=== PATIENT | male | born 1940 | race Caucasian/White ===

== ENCOUNTER → 2024-06-18 15:22 | Outpatient (CLI) | payer MEDICARE, OTHER, SELFPAY ==
[2024-06-18 15:59] LABS: Add Manual Diff / Slide Review NO; Basophils Absolute Auto 0 /uL (0-100); Basophils Percent Auto 0.3 % (0-2); Eosinophils Absolute Auto 300 /uL (0-450); Hematocrit 36.6 % (41-53); Hemoglobin 12.3 g/dL (13.5-17.5); Lymphocytes Absolute Auto 1000 /uL (1100-4500); Mean Corpuscular HGB Conc 33.7 % (30-36); Mean Corpuscular Hemoglobin 28.4 PG (26-34); Mean Corpuscular Volume 84.2 fL (80-100); Monocytes Absolute Auto 900 /uL (0-900); Neutrophils Absolute Auto 5000 /uL (1500-7000); Neutrophils Percent Auto 69.7 % (50-75); Platelet Count 234 X10^3/uL (150-400); Red Blood Cell Count 4.35 X10^6/uL (4.5-5.9); Red Cell Distribution Width 16.5 % (11.6-14.8); White Blood Cell Count 7.2 X10^3/uL (4.5-11.0)
--- NOTE | 2024-06-18 16:02 | EKG_ITS ---
[address] [address] Test Date: 2024-06-18 Pat Name: Lawson Ruelas Department: [facility] Room: Gender: Male Pyridine Operator: TYRONE : 1940 Requested By: Order Number: [id number] Reading MD: Fabrice Rodriguez MD Measurements Intervals [place] Rate: 61 P: 9 RI: 164 QRS: 3 QRSD: 100 T: -7 QT: 476 QTc: 479 Interpretive Statements Normal sinus rhythm Inferior infarct , age undetermined Electronically Signed On 06-19-2024 7:37:26 PDT by Fabrice Rodriguez MD
[2024-06-18 16:40] LABS: Blood Urea Nitrogen 23 mg/dL (9-20); Carbon Dioxide 26 mmol/L (22-32); Chloride 100 mmol/L (98-107); Estimated Glomerular Filt Rate > 60 mL/min (>60); Glucose 119 mg/dL (80-110); HEMOLYSIS < 15 (0-50); Potassium 4.2 mmol/L (3.4-5.1); Sodium 133 mmol/L (137-145)
[2024-06-18 17:42] LABS: Hemoglobin A1C% w Est Avg Glu 5.7 % (4.0-6.0)
== END ==
LOC: RESP 15:27
PROVIDERS: PCP Internal Medicine; Referring Provider Orthopaedic Surgery; Visit Provider Orthopaedic Surgery
DX: Z01.818 Encounter for other preprocedural examination (principal); R73.9 Hyperglycemia, unspecified; Z01.812 Encounter for preprocedural laboratory examination; N39.0 Urinary tract infection, site not specified
CPT/HCPCS: 36415; 80048; 83036; 85025; 93005; 93010

== ENCOUNTER 2024-07-11 15:24 | Inpatient (IN) | payer MEDICARE, OTHER, SELFPAY ==
[2024-07-11] VITALS (11 sets, daily range): BP systolic 110–179; BP diastolic 65–84; PULSE 58–74; RESP 12–24; TEMP 36–36.4; O2SAT 95–99; BMI 21.5
--- NOTE | 2024-07-11 | PATH_ITS ---
[facility] Accession Number: [id number] No. of containers..01 Tissue . 01 Material submitted: . small bowel - SMALL BOWEL . 01 Diagnosis: SMALL BOWEL, SEGMENTAL RESECTION: Small bowel parenchyma with transmural acute and hemorrhagic inflammation and necrosis. Resection margins are viable. Two benign lymph nodes identified. MRV 07/17/2024 1407 Local . 01 Electronically signed: . Jeanne Boyd MD, Pathologist NPI- [id number] . 01 Gross description: . Received in formalin with two patient identifiers and small bowel, is an unoriented, tortuous segment of hemorrhagic bowel (76.7 cm in length by 2.4 cm in average diameter) with a moderate amount of mesentery extending out to 5.2 cm. The serosa is diffusely hemorrhagic and roughened with no perforation or puckering identified. While the bowel is tortuous, no distinct looping is identified. One staple line is inked blue while the opposite staple line is inked black. The lumen is filled with mucohemorrhagic material with a segment of dark red erythematous mucosa measuring 17.9 cm in length with diffusely attenuated folds, and the [place] in this area average 0.1 cm thick. The remaining mucosa is elaine-brown and velvety with normal appearing folds. No lesions are identified, and the remaining [place] average 0.2 cm thick. The erythematous area is 3.2 cm from the nearest blue-inked margin. Palpation reveals two elaine lymph node candidates, 0.2 to 0.4 cm in greatest dimension. Meat Loiner sections are submitted as follows: . A1: Rep margins en face. A2: Erythematous area. A3-A4: Additional full thickness bowel wall. A5: Two intact lymph node candidates. ([id number]) /MRV 07/16/2024 0347 Local . 01 Pathologist provided ICD-10: K56.2 . 01 CPT . 399721 Specimen Comment: A courtesy copy of this report has been sent to [phone] Performed at: [address] [id number] MD Stuart Gillespie MD Phone: [phone]
--- NOTE | 2024-07-11 15:50 | EKG_ITS ---
[facility] [address] [place] [id number] Test Date: 2024-07-11 Pat Name: Lawson Ruelas Department: [facility] Room: Gender: Male Dumper Bulk System: AGATHA : 1940 Requested By: Order Number: [id number] Reading MD: Fabrice Rodriguez MD Measurements Intervals [place] Rate: 60 P: 17 WI: 158 QRS: -7 QRSD: 96 T: -17 QT: 520 QTc: 520 Interpretive Statements Sinus rhythm with occasional premature ventricular complexes Inferior infarct , age undetermined Electronically Signed On 07-11-2024 17:08:38 PDT by Fabrice Rodriguez MD
[2024-07-11] MEDS: SODIUM CHLORIDE 0.9% 1,000 ML 1000 ML IV (15:54)
[2024-07-11] MEDS: ONDANSETRON 4 MG/2 ML INJ IV (15:54)
[2024-07-11 15:57] LABS: Add Manual Diff / Slide Review NO; Basophils Absolute Auto 100 /uL (0-100); Basophils Percent Auto 0.7 % (0-2); Eosinophils Absolute Auto 100 /uL (0-450); Eosinophils Percent Auto 1.6 % (2-4); Hematocrit 39.1 % (41-53); Lymphocytes Absolute Auto 1400 /uL (1100-4500); Lymphocytes Percent Auto 17.6 % (25-40); Mean Corpuscular HGB Conc 33.3 % (30-36); Monocytes Absolute Auto 1000 /uL (0-900); Monocytes Percent Auto 12.7 % (3-14); Neutrophils Absolute Auto 5300 /uL (1500-7000); Neutrophils Percent Auto 67.4 % (50-75); Platelet Count 264 X10^3/uL (150-400); Red Blood Cell Count 4.65 X10^6/uL (4.5-5.9); Red Cell Distribution Width 16.5 % (11.6-14.8); White Blood Cell Count 7.9 X10^3/uL (4.5-11.0)
[2024-07-11 16:10] LABS: Alanine Aminotransferase 30 IU/L (<50); Albumin 4.5 g/dL (3.5-5.0); Albumin Globulin Ratio 1.6 (1.0-2.8); Alkaline Phosphatase 160 U/L (38-126); Aspartate Aminotransferase 43 IU/L (17-59); BUN Creatinine Ratio 24.2 (6-22); Bilirubin Total 0.4 mg/dL (0.2-1.3); Blood Urea Nitrogen 23 mg/dL (9-20); Calcium 9.2 mg/dL (8.4-10.2); Carbon Dioxide 17 mmol/L (22-32); Chloride 103 mmol/L (98-107); Estimated Glomerular Filt Rate > 60 mL/min (>60); Globulin 2.9 g/dL (1.7-4.1); Glucose 214 mg/dL (80-110); HEMOLYSIS < 15 (0-50); Lipase 99 U/L (23-300); Potassium 3.5 mmol/L (3.4-5.1); Sodium 134 mmol/L (137-145); Total Protein 7.4 g/dL (6.3-8.2)
--- NOTE | 2024-07-11 18:20 | ED.GENADULT ---
HPI - General Adult General Chief complaint: Abdominal Pain Stated complaint: abd px Time Seen by Provider: 07/11/24 18:00 Source: patient and family Mode of arrival: Ambulatory Limitations: no limitations History of Present Illness HPI narrative: Patient is an 84-year-old male who arrives in the emergency department for abdominal pain after an episode of vomiting. Patient was just discharged from an outside facility this morning after being admitted for weakness. No specific cause of the weakness was found. He would relatively normal labs. Echocardiogram that was unremarkable. Was subsequently discharged home. He was on his way to another doctor's appointment this morning to discuss potentially having a knee replacement. They stopped to get lunch. Shortly after eating lunch she had an episode of vomiting. Since that time he was had continued nausea. Continued abdominal pain that has been worsening. The nausea did not make any of his discomfort better. No fevers. No chest pain. No shortness of breath. Symptoms. Has not had a bowel movement since the onset of the symptoms. Related Data Allergies Allergy/AdvReac Type Severity Reaction Status Date / Time Sulfa (Sulfonamide Allergy Verified 07/11/24 15:49 Antibiotics) Review of Systems Review of Systems ROS Unobtainable: All systems reviewed & are unremarkable except as noted in HPI and below Exam Initial Vital Signs Initial Vital Signs: Vital Signs Temperature 96.8 F L 07/11/24 15:35 Pulse Rate 74 07/11/24 15:35 Respiratory Rate 16 07/11/24 15:35 Blood Pressure 130/81 07/11/24 15:35 Pulse Oximetry 98 07/11/24 15:35 Oxygen Delivery Method Room Air 07/11/24 15:35 Const General: cooperative, well developed and No ill appearing [facility] Head: normal to inspection and normocephalic Resp Effort & Inspection: normal respiratory effort Auscultation: clear to auscultation bilaterally Cardio Rate: regular rate Rhythm: regular rhythm GI Inspection: normal to inspection and non-distended Palpation: soft, No firm, No guarding and tender Skin General: no rashes or lesions noted Neuro General: patient alert, patient awake, patient oriented x3 and moves all extremities Speech: speech normal Gait: normal gait Extrem General: normal to inspection and capillary refill normal Course Orders Ordered: ED Orders 07/11/24 15:50 Complete Blood Count AUTO DIFF Stat Comprehensive Metabolic Panel Stat Lactate (Lactic Acid) Stat Lipase Stat EKG-12 Lead Stat 07/11/24 18:20 CT abdomen pelvis w con Stat 07/11/24 20:05 Consult to General Surgery Stat 07/11/24 20:20 Lactate (Lactic Acid) Stat Sodium Chloride (Normal Saline 0.9%) 1,000 mls @ 100 mls/hr IV CONT MARY LOU Ondansetron HCl (Ondansetron 4 Mg/2 Ml Inj) 4 mg IV NOW PRN PRN Reason: Nausea And Vomiting Last Admin: 07/11/24 15:54 Dose: 4 mg Documented By: NEERAJ Discontinued Medications Sodium Chloride (Normal Saline 0.9%) 1,000 mls @ 1,000 mls/hr IV BOLUS ONE Stop: 07/11/24 16:49 Last Infusion: 07/11/24 16:48 Dose: Infused Documented By: Admin: 07/11/24 15:54 Dose: 1,000 mls/hr Documented By: NEERAJ Morphine Sulfate (Morphine 4 Mg/Ml Inj) 4 mg IV NOW ONE Stop: 07/11/24 18:21 Last Admin: 07/11/24 18:41 Dose: 4 mg Documented By: ISAAC Morphine Sulfate (Morphine 4 Mg/Ml Inj) 4 mg IV NOW ONE Stop: 07/11/24 20:06 Last Admin: 07/11/24 20:09 Dose: 4 mg Documented By: MILO Vital Signs Vital signs: Vital Signs - 8 hr 07/11/24 15:35 07/11/24 16:50 07/11/24 18:43 Temperature 96.8 F L Pulse Rate 74 68 60 Respiratory Rate 16 16 16 Blood Pressure 130/81 179/84 H 166/74 H Pulse Oximetry 98 95 99 Oxygen Delivery Method Room Air Room Air Room Air Medical Decision Making Medical Records Medical records reviewed: Yes I reviewed the patient's medical records. Lab Data Lab results reviewed: Yes I reviewed the patient's lab results. 07/11/24 15:50 07/11/24 15:50 Labs: Lab Results 07/11/24 07/11/24 Range/Units 15:50 20:20 WBC 7.9 (4.5-11.0) X10^3/uL RBC 4.65 (4.5-5.9) X10^6/uL Hgb 13.0 L (13.5-17.5) g/dL Hct 39.1 L (41-53) % MCV 84.0 (80-100) fL MCH 28.0 (26-34) PG MCHC 33.3 (30-36) % RDW 16.5 H (11.6-14.8) % Plt Count 264 (150-400) X10^3/uL Neut % (Auto) 67.4 (50-75) % Lymph % (Auto) 17.6 L (25-40) % [place] % (Auto) 12.7 (3-14) % Eos % (Auto) 1.6 L (2-4) % Baso % (Auto) 0.7 (0-2) % Neut # (Auto) 5300 (9395-3835) /uL Lymph # (Auto) 1400 (9272-7036) /uL [place] # (Auto) 1000 H (0-900) /uL Eos # (Auto) 100 (0-450) /uL Baso # (Auto) 100 (0-100) /uL Sodium 134 L (137-145) mmol/L Potassium 3.5 (3.4-5.1) mmol/L Chloride 103 (98-107) mmol/L Carbon Dioxide 17 L (22-32) mmol/L BUN 23 H (9-20) mg/dL Creatinine 0.95 (0.66-1.25) mg/dL Estimated GFR > 60 (>60) mL/min BUN/Creatinine Ratio 24.2 H (6-22) Glucose 214 H (80-110) mg/dL Lactate 3.7 H 1.8 (0.7-2.1) mmol/L Calcium 9.2 (8.4-10.2) mg/dL Total Bilirubin 0.4 (0.2-1.3) mg/dL AST 43 (17-59) IU/L ALT 30 (<50) IU/L Alkaline Phosphatase 160 H (38-126) U/L Total Protein 7.4 (6.3-8.2) g/dL Albumin 4.5 (3.5-5.0) g/dL Globulin 2.9 (1.7-4.1) g/dL Albumin/Globulin Ratio 1.6 (1.0-2.8) Lipase 99 (23-300) U/L Urine Dip Bedside Urine Glucose Negative Bedside Urine Bilirubin - Negative Bedside Urine Ketone - Negative Urine Specific [place] 1.010 Bedside Urine Occult Blood - Negative Bedside Urine pH 7.0 Bedside Urine Protein - Negative Bedside Urine Urobilinogen - Negative Bedside Urine Nitrite - Negative Bedside Urine Leukocytes - Negative Esterase Point of care testing: Urine Dip Bedside Urine Glucose Negative Bedside Urine Bilirubin - Negative Bedside Urine Ketone - Negative Urine Specific [place] 1.010 Bedside Urine Occult Blood - Negative Bedside Urine pH 7.0 Bedside Urine Protein - Negative Bedside Urine Urobilinogen - Negative Bedside Urine Nitrite - Negative Bedside Urine Leukocytes - Negative Esterase Imaging Data CT scan - abdomen/pelvis: Radiologist's Impression: PROCEDURE: CT ABDOMEN PELVIS W CON INDICATIONS: Generalized abdominal pain TECHNIQUE: After the administration of intravenous contrast, axial sections acquired from the lung bases to the pubic symphysis. Coronal and sagittal reformats were performed. For radiation dose reduction, the following was used: automated exposure control, adjustment of mA and/or kV according to patient size. COMPARISON: None. FINDINGS: Image quality: Diagnostic Lower chest: Scattered scarring and atelectasis especially in the left lower lung. Aortic valve replacement. Coronary calcifications. Liver: Unremarkable Gallbladder and biliary system: Unremarkable, nondilated Pancreas: No ductal dilation Spleen: Nonenlarged Adrenals: No discrete nodules Kidneys: No solid mass. Renal cysts are present. Subcentimeter lesions are too small to characterize, usually also cysts Vessels and lymph nodes: The main portal vein is patent. Abdominal aortic aneurysm status post stent graft placement. Internal densities representing endoleaks are present. No pathologic lymph nodes by size criteria Bowel and peritoneum: Mildly dilated loops of distal bowel are seen, there are moderate findings of mesenteric congestion . Possible adhesive band is seen in the central lower abdomen (3/25), implied by the sudden transition of bowel diameter, and focally edematous mesentery. Altered enhancement of the adjacent bowel loops is noted. Colonic diverticula are seen. Trace pelvic ascites. Body wall: Tiny fat containing umbilical hernia Pelvis: Possible small hydroceles. Urinary bladder is distended. BPH device and heterogeneous prostate enhancement, not well assessed on this study Bones: There are degenerative changes. Age-indeterminate height loss of multiple vertebral bodies, with vertebral plana at T12. IMPRESSION: Complex small-bowel obstruction in the lower abdomen, with transition point also affecting the mesenteric venous drainage. Although the bowel is only mildly distended, there is significant edema and altered bowel wall enhancement, possibly representing congestive ischemia. Surgical consultation is recommended. Aortoiliac stent graft and endoleaks within the excluded aneurysm sac, recommend dedicated vascular follow-up and vascular CT imaging. Age-indeterminate height loss of multiple vertebral bodies most notably T12. Other findings above. MDM Narrative Medical decision making narrative: Patient has a relatively benign abdominal exam but given his persistent discomfort even after vomiting CT scan was ordered. No leukocytosis. Initially had an elevated lactate but this improved with fluids. Afebrile. CT scan shows small bowel obstruction with concerns for ischemia. Discussed the case with Dr. Villeda on-call for General surgery who evaluated the patient in the emergency department plan will be is to admit to surgery for excellent. I also discussed the case with Dr. Cruz hospitalist on-call who will be involved in the care after surgery. Discharge Plan Departure Patient Disposition: Admitted As Inpatient Clinical Impression: Small bowel obstruction Admit Date/Time: 07/11/24 20:54 Admit Provider: Jeffrey Cruz
[2024-07-11] MEDS: MORPHINE 4 MG/ML INJ IV ×2 (18:41→20:09)
[2024-07-11 20:16] LABS: Lactate (Lactic Acid) 3.7 mmol/L (0.7-2.1)
[2024-07-11 20:44] LABS: Lactate (Lactic Acid) 1.8 mmol/L (0.7-2.1)
--- NOTE | 2024-07-11 20:45 | PC.NURSE ---
Dr Villeda in to talk with pt and pt's
--- NOTE | 2024-07-11 20:54 | P.CONS_ITS ---
History of Present Illness Consult details Date Patient Seen: 07/11/24 Time Patient Seen: 20:54 Chief complaint: abd px Narrative: Lawson Ruelas is an 84-year-old man PMH CVA, aortic stenosis status post TAVR, AAA status post EVAR and paroxysmal atrial fibrillation not on anticoagulation who presents to the [facility] Emergency Department with the acute onset abdominal pain. Abdominal pain primarily of the right lower quadrant began abruptly today around noon. He has a associated nausea and emesis. At admission hemodynamically stable WBC 8, initial lactic acid 3.7 now 1.[address] abdomen pelvis demonstrates a small-bowel obstruction with a transition point in the right lower quadrant with mesenteric congestion. He was discharged from [facility] yesterday where he was there for few days for complaint of generalized weakness. His weakness improved no real underlying cause was identified. While there he did undergo a echocardiogram which demonstrates a normally functioning prosthetic aortic valve peak velocity less than 3 m/sec. The ejection fraction was 55-60 with grade 1 diastolic dysfunction. Meds Home Medications and Allergies Allergies Allergy/AdvReac Type Severity Reaction Status Date / Time Sulfa (Sulfonamide Allergy Verified 07/11/24 15:49 Antibiotics) Exam Vital Signs (past 8 hours): - 07/11/24 15:35 07/11/24 16:50 07/11/24 18:43 Temperature 96.8 F L Pulse Rate 74 68 60 Respiratory Rate 16 16 16 Blood Pressure 130/81 179/84 H 166/74 H Pulse Oximetry 98 95 99 Oxygen Delivery Method Room Air Room Air Room Air Oxygen Delivery Method Room Air Narrative Exam Narrative: GENERAL: A well nourished, well developed elderly male HEENT: Normocephalic, atraumatic. No scleral icterus CHEST: Rising symmetrically. No audible wheezes CARDIOVASCULAR: Warm and well perfused. Regular rate ABDOMEN: Distention with focal tenderness in the right lower quadrant EXTREMITIES: Normal tone and without edema. NEUROLOGIC: Moving all extremities spontaneously. No gross motor deficits. Objective Labs 07/11/24 15:50 07/11/24 15:50 Labs: Laboratory Results - last 24 hr 07/11/24 07/11/24 15:50 20:20 WBC 7.9 RBC 4.65 Hgb 13.0 L Hct 39.1 L MCV 84.0 MCH 28.0 MCHC 33.3 RDW 16.5 H Plt Count 264 Neut % (Auto) 67.4 Lymph % (Auto) 17.6 L [place] % (Auto) 12.7 Eos % (Auto) 1.6 L Baso % (Auto) 0.7 Neut # (Auto) 5300 Lymph # (Auto) 1400 [place] # (Auto) 1000 H Eos # (Auto) 100 Baso # (Auto) 100 Sodium 134 L Potassium 3.5 Chloride 103 Carbon Dioxide 17 L BUN 23 H Creatinine 0.95 Estimated GFR > 60 BUN/Creatinine Ratio 24.2 H Glucose 214 H Lactate 3.7 H 1.8 Calcium 9.2 Total Bilirubin 0.4 AST 43 ALT 30 Alkaline Phosphatase 160 H Total Protein 7.4 Albumin 4.5 Globulin 2.9 Albumin/Globulin Ratio 1.6 Lipase 99 [facility] Medical History (Updated 07/11/24 @ 21:20 by Zuhair Villeda MD) Atrial fibrillation Stroke Aortic stenosis Abdominal aortic aneurysm Surgical History (Updated 07/11/24 @ 21:07 by Zuhair Villeda MD) History of appendectomy H/O aortic aneurysm repair S/P TAVR (transcatheter aortic valve replacement) Assessment & Plan Assessment and plan (1) Small bowel obstruction: Problem details: 84-year-old man PMH aortic stenosis status post TAVR, AAA status post repair, atrial fibrillation with an acute small bowel obstruction. CT with a clear transition point in the right lower quadrant and radiology notes mesenteric congestion. While not peritoneal at this point I think early intervention is indicated. If the mesenteric congestion/venous outflow does not improve he will progress to sujata bowel ischemia and perforation which at his advanced age and with his comorbidities would be quite morbid. Overview of the operation its indications alternative and risks including hemorrhage, infection, anastomotic leak, stroke, myocardial infarction and were reviewed. Their questions have been answered. He provides his consent to proceed. Status: Acute Time-Based Coding :: [TOTAL MINUTES] spent with patient and on the chart (including review of chart, obtaining history, exam, reviewing outside data, placing orders, documenting exam and treatment plan, and counseling patient) on [DATE].
--- NOTE | 2024-07-11 21:00 | PC.NURSE ---
discussed with and pt about her staying tonight in pt's room if they wanted so she wouln't have to drive pt continues to rest comfortably
[2024-07-11] MEDS: LACTATED RINGERS 1,000 ML 42 ML IV ×2 (21:33→23:39)
[2024-07-11 21:44] LABS: Reflexed Lactate in 2 Hours Y
[2024-07-11] MEDS: PIPERACILLIN/TAZO 3.375 GM in SODIUM CHLORIDE 0.9% 100 ML IV (22:00)
[2024-07-11] MEDS: ACETAMINOPHEN IV 1,000 MG/100 ML VIAL 400 MG IV (22:10)
--- NOTE | 2024-07-11 22:12 | SUR.OPER ---
Supine on padded OR bed, head on pillow, arms secured on padded arm boards at <90 degrees abduction, legs uncrossed, safety belt at thigh, tape over blanket over lower legs.
[2024-07-11] MEDS: BUPIVACAINE LIPOSOME 266 MG/20 ML VIAL INJ (22:24)
[2024-07-11] MEDS: BUPIVACAINE 0.25% (PF) VIAL 10 ML INJ (22:24)
--- NOTE | 2024-07-11 23:16 | PM.OP.1 ---
Operative Date/Time/Diagnoses Date of procedure: 07/11/24 Time of procedure: 23:16 Pre-op diagnosis: Small-bowel obstruction Post-op diagnosis: other (Small-bowel volvulus) Procedure & Clinicians Procedure: Exploratory laparotomy Enterectomy Same procedure as scheduled: Yes Indications: 84-year-old man with a history of prior abdominal surgery who presented with symptoms and radiographic findings consistent with a small-bowel obstruction. Specifically the CT was concerning for mesenteric congestion and a clear transition point. He was taken to the operating room for an exploratory laparotomy following a discussion of the risks benefits and alternatives to the operation. Surgeon: Zuhair Villeda Anesthesia Type: General Operative Notes Findings: Approximately 40 cm of ischemic and partially necrotic volvulized mid small bowel Specimen(s): other (Small-bowel) Estimated Blood Loss (mL): 20 Procedure in detail: Patient was brought to the operating room placed supine on the table. Bilateral lower extremity compression devices were applied. He received 3.375 g of Zosyn. A Edwards catheter was sterilely placed. He was then prepped and draped in sterile fashion. Time-out performed. A infraumbilical midline laparotomy was made. The abdomen was entered and there was a loop of small bowel within the right pelvis which was eviscerated. The small bowel appears to have volvulized around a vascular pedicle. There was approximately 40 cm within the mid small bowel which was ischemic and with early signs of necrosis. The condition of the bowel did not improve with detorsion of the volvulus. The remainder of the small bowel from the terminal ileum to the ligament of Treitz was grossly normal. We performed a small-bowel resection of the ischemic portion. Window within the mesentery was made the bowel was divided using the CYRUS stapler 75 mm blue load. The mesentery was then divided using the LigaSure. Specimen was passed off the field labeled small bowel. We formed a [id number] functional end to end anastomosis between the 2 limbs of small bowel. An enterotomy was made in each limb and then a 3rd staple load was used to create a common channel. The anastomosis was inspected and was hemostatic and widely patent. The common opening was then closed with a running 3-0 PDS suture. The suture line was imbricated using interrupted silk suture. A crotch stitch was placed. We closed the mesenteric defect with Vicryl. The anastomosis was examined there was no evidence of leak and it was well perfused. The bowel was returned to the abdomen. The abdomen was copiously irrigated with several L of saline until it returned clear. Hemostasis was verified. We then closed the fascia using PDS suture followed by lucía for the skin. Total of 30 mL of 0.25% bupivacaine and 20 mL of Exparel were used for local anesthetic. The sponge and instrument count was correct x2. Patient emerged from anesthesia and was transferred to recovery in stable condition. Complications: none Post-operative Condition: stable Disposition: ICU
[2024-07-11] MEDS: LACTATED RINGERS 1,000 ML 100 ML IV (23:45)
[2024-07-12] VITALS (16 sets, daily range): BP systolic 123–150; BP diastolic 65–71; PULSE 56–77; RESP 12–37; TEMP 36.3–36.6; O2SAT 92–98
--- NOTE | 2024-07-12 01:28 | P.TELICUCN_ITS ---
History of Present Illness Consult details IF CAMERA ACTIVATED, patient seen via real-time interactive audiovisual communication: Camera activated Date Patient Seen: 07/12/24 Chief complaint: abd px Consent obtained for tele-unemployment benefits claims taker care: Yes Patient Location: ICU Provider location (State): [place] Other participants/roles: RN Narrative: 84 yo M w/ CVA, aortic stenosis status post TAVR, AAA status post EVAR and paroxysmal atrial fibrillation not on anticoagulation presenting woth abd pain and found to have an SBO - brought to OR this eveningnow s/p ex lap with necrotic bowel excised and small bowel anastomosis trasnferred to ICU given intra op and post op HD instability which does seem to be improving. AM labs are pending but his bicabr was quite low , likely from necrotic bowel, prior to surgery. he is currently awake talkign with family and adequate BP and VS PFSH Medical History (Updated 07/11/24 @ 21:20 by Zuhair Villeda MD) Atrial fibrillation Stroke Aortic stenosis Abdominal aortic aneurysm Surgical History (Updated 07/11/24 @ 21:07 by Zuhair Villeda MD) History of appendectomy H/O aortic aneurysm repair S/P TAVR (transcatheter aortic valve replacement) Social History household members: spouse Smoking Status: Never smoker alcohol intake: former Current Medications Current Medications Medications: Visit Medications (administered) Generic Name Dose Route Start Last Admin Trade Name Freq PRN Reason Stop Dose Admin Lactated Ringer's 1,000 mls @ 100 mls/hr 07/11/24 21:00 07/11/24 23:45 Lactated Ringers IV 100 mls/hr CONT MARY LOU Administration Ondansetron HCl 4 mg 07/11/24 15:49 07/11/24 15:54 Ondansetron 4 Mg/2 Ml Inj IV 4 mg NOW PRN Administration Nausea And Vomiting Exam Vital Signs (past 8 hours): - 07/11/24 18:43 07/11/24 21:23 07/11/24 21:45 Temperature 97.3 F L Pulse Rate 60 60 58 L Respiratory Rate 16 24 16 Blood Pressure 166/74 H 135/70 153/79 H Pulse Oximetry 99 97 95 Oxygen Delivery Method Room Air Room Air Room Air Oxygen Flow Rate 07/11/24 23:13 07/11/24 23:18 07/11/24 23:23 Temperature 97.5 F L Pulse Rate 67 67 65 Respiratory Rate 12 14 18 Blood Pressure 144/78 H 135/80 134/74 Pulse Oximetry 97 97 96 Oxygen Delivery Method Nasal Cannula Nasal Cannula Nasal Cannula Oxygen Flow Rate 4 4 4 07/11/24 23:29 07/11/24 23:33 07/11/24 23:45 Temperature 97 F L Pulse Rate 63 62 60 Respiratory Rate 12 13 18 Blood Pressure 110/65 130/74 123/66 Pulse Oximetry 98 98 96 Oxygen Delivery Method Nasal Cannula Nasal Cannula Oxygen Flow Rate 4 4 4 07/12/24 00:30 Temperature Pulse Rate Respiratory Rate Blood Pressure Pulse Oximetry Oxygen Delivery Method Nasal Cannula Oxygen Flow Rate Oxygen Delivery Method Nasal Cannula Oxygen Flow Rate 4 Narrative Exam Narrative: awake NAD conversive Objective Labs 07/11/24 15:50 07/11/24 15:50 Labs: Laboratory Results - last 24 hr 07/11/24 07/11/24 15:50 20:20 WBC 7.9 RBC 4.65 Hgb 13.0 L Hct 39.1 L MCV 84.0 MCH 28.0 MCHC 33.3 RDW 16.5 H Plt Count 264 Neut % (Auto) 67.4 Lymph % (Auto) 17.6 L [place] % (Auto) 12.7 Eos % (Auto) 1.6 L Baso % (Auto) 0.7 Neut # (Auto) 5300 Lymph # (Auto) 1400 [place] # (Auto) 1000 H Eos # (Auto) 100 Baso # (Auto) 100 Sodium 134 L Potassium 3.5 Chloride 103 Carbon Dioxide 17 L BUN 23 H Creatinine 0.95 Estimated GFR > 60 BUN/Creatinine Ratio 24.2 H Glucose 214 H Lactate 3.7 H 1.8 Calcium 9.2 Total Bilirubin 0.4 AST 43 ALT 30 Alkaline Phosphatase 160 H Total Protein 7.4 Albumin 4.5 Globulin 2.9 Albumin/Globulin Ratio 1.6 Lipase 99 Assessment & Plan Assessment & Plan narrative: # afib # SBO # metabolic acidosis pain cotnrol map goal >65 IVf bolusis / albumin boluses as needed npo for now trend labs f/u sx monitro UO dvt ppx Will follow, if he remains HD stbale and conitnues ot imrpove can likely move to med/surg tomorrow total CCT 35 min Time-Based Coding :: [TOTAL MINUTES] spent with patient and on the chart (including review of chart, obtaining history, exam, reviewing outside data, placing orders, documenting exam and treatment plan, and counseling patient) on [DATE].
[2024-07-12 01:58] LABS: MRSA (Nasal) PCR NOT DETECTED (Not Detect)
[2024-07-12 05:02] LABS: Add Manual Diff / Slide Review NO; Basophils Absolute Auto 0 /uL (0-100); Eosinophils Absolute Auto 0 /uL (0-450); Hematocrit 36.2 % (41-53); Hemoglobin 12.2 g/dL (13.5-17.5); Lymphocytes Absolute Auto 400 /uL (1100-4500); Lymphocytes Percent Auto 6.7 % (25-40); Mean Corpuscular HGB Conc 33.8 % (30-36); Mean Corpuscular Hemoglobin 28.3 PG (26-34); Mean Corpuscular Volume 83.8 fL (80-100); Monocytes Absolute Auto 300 /uL (0-900); Monocytes Percent Auto 3.9 % (3-14); Neutrophils Absolute Auto 5900 /uL (1500-7000); Neutrophils Percent Auto 89.4 % (50-75); Platelet Count 205 X10^3/uL (150-400); Red Blood Cell Count 4.32 X10^6/uL (4.5-5.9); Red Cell Distribution Width 15.9 % (11.6-14.8); White Blood Cell Count 6.6 X10^3/uL (4.5-11.0)
[2024-07-12 05:16] LABS: Alanine Aminotransferase 22 IU/L (<50); Albumin 3.5 g/dL (3.5-5.0); Albumin Globulin Ratio 1.3 (1.0-2.8); Alkaline Phosphatase 134 U/L (38-126); Aspartate Aminotransferase 39 IU/L (17-59); BUN Creatinine Ratio 27.3 (6-22); Bilirubin Total 0.4 mg/dL (0.2-1.3); Blood Urea Nitrogen 15 mg/dL (9-20); Calcium 8.2 mg/dL (8.4-10.2); Carbon Dioxide 22 mmol/L (22-32); Chloride 107 mmol/L (98-107); Estimated Glomerular Filt Rate > 60 mL/min (>60); Globulin 2.6 g/dL (1.7-4.1); Glucose 153 mg/dL (80-110); HEMOLYSIS < 15 (0-50); Potassium 3.8 mmol/L (3.4-5.1); Sodium 134 mmol/L (137-145); Total Protein 6.1 g/dL (6.3-8.2)
--- NOTE | 2024-07-12 06:36 | P.HP_ITS ---
History of Present Illness History of Present Illness Chief complaint: abd px Narrative: 84-year-old male with past medical history of aortic stenosis s/p TAVR, abdominal aortic aneurysm status post repair, atrial fibrillation and CVA presents with abdominal pain with nausea and vomiting. Of note, the patient was recently admitted and discharged from outside hospital for generalized weakness. Extensive workup outside hospital was negative for any iteology. The patient was sent home to follow up with his PCP. Today the patient was about to follow up with his PCP when he had a cute onset of abdominal pain after having lunch. The patient states that his pain was generalized, sharp and severe. The patient did have some nausea and non bloody vomiting but denies any diarrhea, fever, chills, chest pain, shortness of breath or dysuria.? In our emergency room, the patient with hemodynamically stable with lab showing elevate lactate of about 3. CT scan of patient's abdomen? shows small bowel obstruction with possible bowel ischemia. Dr Villeda from general surgery was consulted immediately and the patient was taken straight from our emergency room to the operating room. The patient was seen by me after his surgery in ICU and the patient was hemodynamically stable and awake. The patients report that his pain is control. I did speak to Dr Villeda who reports that he did resect a small part of the bowel due to ischemia. Dr Villeda said the operation was a success. His recommendation is to keep the patient NPO for now with pain control and monitor hemodynamics.? [facility] Medical History (Updated 07/11/24 @ 21:20 by Zuhair Villeda MD) Atrial fibrillation Stroke Aortic stenosis Abdominal aortic aneurysm Surgical History (Updated 07/11/24 @ 21:07 by Zuhair Villeda MD) History of appendectomy H/O aortic aneurysm repair S/P TAVR (transcatheter aortic valve replacement) Social History household members: spouse Smoking Status: Never smoker alcohol intake: former Meds Home Medications and Allergies Allergies Allergy/AdvReac Type Severity Reaction Status Date / Time Sulfa (Sulfonamide Allergy Verified 07/11/24 15:49 Antibiotics) Review of Systems Review of Systems ROS: Yes All systems reviewed with the patient and are negative except as otherwise documented Exam Vital Signs (past 8 hours): - 07/11/24 23:13 07/11/24 23:18 07/11/24 23:23 Temperature 97.5 F L Pulse Rate 67 67 65 Respiratory Rate 12 14 18 Blood Pressure 144/78 H 135/80 134/74 Pulse Oximetry 97 97 96 Oxygen Delivery Method Nasal Cannula Nasal Cannula Nasal Cannula Oxygen Flow Rate 4 4 4 07/11/24 23:29 07/11/24 23:33 07/11/24 23:45 Temperature 97 F L Pulse Rate 63 62 60 Respiratory Rate 12 13 18 Blood Pressure 110/65 130/74 123/66 Pulse Oximetry 98 98 96 Oxygen Delivery Method Nasal Cannula Nasal Cannula Oxygen Flow Rate 4 4 4 07/12/24 00:00 07/12/24 00:30 07/12/24 01:00 Temperature Pulse Rate 65 56 L Respiratory Rate 26 H 18 Blood Pressure 123/66 147/69 H Pulse Oximetry 96 98 Oxygen Delivery Method Nasal Cannula Oxygen Flow Rate 0 0 07/12/24 02:00 07/12/24 03:00 Temperature Pulse Rate 57 L 58 L Respiratory Rate 22 14 Blood Pressure 150/70 H 135/68 Pulse Oximetry 96 95 Oxygen Delivery Method Oxygen Flow Rate 0 2 Oxygen Delivery Method Nasal Cannula Oxygen Flow Rate 2 Narrative Exam Narrative: GENERAL: The patient is not in any acute distressed. Awake and alert. HEENT: Nonicteric sclerae, PERRLA, EOMI. Oropharynx clear. Moist mucous membranes. Conjunctivae appear well perfused. HEART: Regular rate and rhythm without murmurs. No lower extremities edema. LUNGS: Clear to auscultation bilaterally. No wheezing, crackles or rhonchi ABDOMEN: Incision from ex lap intact. Decreased bowel sound throughout with generalized tenderness but no rebound. SKIN: No rash, no excessive bruising, petechiae, or purpura. NEUROLOGIC: AxO x 3. Cranial nerves II-XII intact without motor/sensory deficit. Objective Labs 07/12/24 04:25 07/12/24 04:25 Labs: Laboratory Results - last 24 hr 07/11/24 07/11/24 07/12/24 15:50 20:20 00:15 WBC 7.9 RBC 4.65 Hgb 13.0 L Hct 39.1 L MCV 84.0 MCH 28.0 MCHC 33.3 RDW 16.5 H Plt Count 264 Neut % (Auto) 67.4 Lymph % (Auto) 17.6 L [place] % (Auto) 12.7 Eos % (Auto) 1.6 L Baso % (Auto) 0.7 Neut # (Auto) 5300 Lymph # (Auto) 1400 [place] # (Auto) 1000 H Eos # (Auto) 100 Baso # (Auto) 100 Sodium 134 L Potassium 3.5 Chloride 103 Carbon Dioxide 17 L BUN 23 H Creatinine 0.95 Estimated GFR > 60 BUN/Creatinine Ratio 24.2 H Glucose 214 H Lactate 3.7 H 1.8 Calcium 9.2 Total Bilirubin 0.4 AST 43 ALT 30 Alkaline Phosphatase 160 H Total Protein 7.4 Albumin 4.5 Globulin 2.9 Albumin/Globulin Ratio 1.6 Lipase 99 Nasal Screen MRSA (PCR) Not detected 07/12/24 04:25 WBC 6.6 RBC 4.32 L Hgb 12.2 L Hct 36.2 L MCV 83.8 MCH 28.3 MCHC 33.8 RDW 15.9 H Plt Count 205 Neut % (Auto) 89.4 H D Lymph % (Auto) 6.7 L [place] % (Auto) 3.9 Eos % (Auto) 0.0 L Baso % (Auto) 0.0 Neut # (Auto) 5900 Lymph # (Auto) 400 L [place] # (Auto) 300 Eos # (Auto) 0 Baso # (Auto) 0 Sodium 134 L Potassium 3.8 Chloride 107 Carbon Dioxide 22 BUN 15 Creatinine 0.55 L Estimated GFR > 60 BUN/Creatinine Ratio 27.3 H Glucose 153 H Lactate Calcium 8.2 L Total Bilirubin 0.4 AST 39 ALT 22 Alkaline Phosphatase 134 H Total Protein 6.1 L Albumin 3.5 Globulin 2.6 Albumin/Globulin Ratio 1.3 Lipase Nasal Screen MRSA (PCR) Assessment & Plan Assessment & Plan narrative: SBO with partial bowel ischemia? s/p surgical intervention and partial bowel resection.? ?Admit the patient ICU with telemetry.? Of note Per Dr. Villeda from general surgery, we are to continue to keep the patient NPO for now, pain control, IV fluid and monitor hemodynamics. Of note patient is sensitive to pain medication with dropping his blood pressure Will keep a close eye on his blood pressure and be very cautious with pain medication. No antibiotic? needed at this time per Dr. Villeda.? AFib with a history of CVA. Will resume patients home medication but will hold antiplatelet or anticoagulation until clear by Dr Villeda in the morning . History of aortic stenosis status post TAVR.? Of note, patient recent echo shows only mild diastolic heart failure but otherwise everything else stable. Generous weakness.? The patient has recent thorough workup at outside hospital which were negative. PT/OT for now.? DVT prophylaxis defer to general surgery continue SCDs for now . Code status DNR DNI per the patient's request . Disposition likely home in 2 days . Time-Based Coding :: [TOTAL MINUTES] spent with patient and on the chart (including review of chart, obtaining history, exam, reviewing outside data, placing orders, documenting exam and treatment plan, and counseling patient) on [DATE]. Quality VTE Deep Vein Thrombosis/Pulmonary Embolism Present on Admission: No
--- NOTE | 2024-07-12 10:55 | PT.IIE ---
Current Diagnoses Unspecified intestinal obstruction, unspecified as to partial versus complete obstruction (07/11/24) Surgery Performed Operation Date: 07/11/24 22:00 Actual Procedures p Exploratory Laparotomy, Small Bowel Resection(Not Applicable) - Zuhair Villeda MD Surgical History (Last Updated 07/11/24 @ 21:07 by Zuhair Villeda MD) H/O aortic aneurysm repair History of appendectomy S/P TAVR (transcatheter aortic valve replacement) Medical History (Last Updated 07/11/24 @ 21:07 by Zuhair Vlileda MD) Abdominal aortic aneurysm Aortic stenosis Atrial fibrillation Stroke Physical Therapy Inpatient Evaluation/Re-Eval M1 PT/OT-IP Prior Functional Status Start: 07/12/24 14:16 Freq: NEEDED Status: Active Protocol: Document 07/12/24 10:55 AB (Rec: 07/12/24 14:29 AB [id number]) Medical Review Prior Functional Status Medical History Reviewed Yes Communication able to make needs known; LA POSTA Mobility and Gait pt stated that he was modified independent with transfers and ambulation using a 4WW but uses his FWW when he wasks to the bathroom; spouse provided SBA for pt when doing his shower Social History Household Members spouse Living Arrangements House Number of Floors (Floors) Two Floors Number of Stairs To Enter/Railing? pt stays on the main level of the house Home Environment Standard Height Toilet,Walk in Shower Home Equipment Front Wheel Walker,Four Wheel Walker,Shower Seat with Backrest,Hand Held Shower,Grab Bars Near Toilet,Grab Bars In Shower M2 PT-IP Current Condition Start: 07/12/24 14:16 Freq: NEEDED Status: Active Protocol: Document 07/12/24 10:55 AB (Rec: 07/12/24 14:29 AB [id number]) Physical Therapy Current Condition Current Condition Evaluation Date 07/12/24 Treatment Diagnosis SBO s/p ex-lap enterectomy; difficulty in walking Onset Date 07/11/24 M3 PT-IP Subjective Start: 07/12/24 14:16 Freq: NEEDED Status: Active Protocol: Document 07/12/24 10:55 AB (Rec: 07/12/24 14:29 AB [id number]) Subjective Physical Therapy Visit Type Type Initial Evaluation Visit Start Time 10:55 Visit Stop Time 11:50 Number of DEHYDRATION PLANT OPERATOR Visits 0 Physical Therapy Visit Comments Patient Comments agreeable to do PT Therapy Pain Assessment Pain Present Pain Present Denied Pain M4 PT-IP Mobility and Gait Start: 07/12/24 14:16 Freq: NEEDED Status: Active Protocol: Document 07/12/24 10:55 AB (Rec: 07/12/24 14:29 AB [id number]) PT-Bed Mobility Assessment Rolling Type of Rolling Log Rolling Level of Assist Moderate Assistance Supine to Sit Supine to Sit Moderate Assistance PT-Transfer Assessment Sit to and From Stand Sit to and from Stand Maximum Assistance,1 Person Assistance,2 Person Assistance ,Use of Upper Extremities Equipment Transfer Assistive Device Gait Belt,Front Wheeled Walker Orthotic/Prosthetic Devices or Brace: No Transfers Transfer Destination Chair Transfer Technique ambulated Transfer Ability Level of Assist Maximum Assistance,1 Person Assistance,2 Person Assistance ,Use of Upper Extremities Comments Mobility Comments pt supine in bed. spouse and daughter in room. pt is LA POSTA. obtained PLOF and home set up from pt and spouse. post-op hand out provided. educated pt and spouse regarding pt's adominal precautions and log roll bed mobility. BP supine: 114/65 O2 sat at RA: 93-95%. pt completed log roll supine to sit mod A and cues. able to sit on EOB mod A with increase retrolean. cued pt to correct. able to sit on EOB CGA to min A after repositioning. pt completed sit to stand x 3 attempts requiring max A x 1-2 and max cues. increase posterior trunk leaning with standing and cued for body positioning and use of FWW for support. pt ambulated to the chair using FWW max A x 1-2 and max cues. presents with unsteady antalgic gait. pt with B genu varus L>R. pt sat on the chair. position on the chair. call light and table placed within reach. pt and spouse informed that pt was scheduled for L knee sx on sunday but not cancelled due to SBO. Gait Assessment Gait Gait Assistance Required: Maximum Assistance,1 Person Assist,2 Person Assist Distance (Feet) 15 PT-Balance Assessment Sitting Balance and Reactions Static Sitting Balance Ability Fair Dynamic Sitting Balance Ability Fair Standing Balance and Reactions Static Standing Balance Ability Poor Dynamic Standing Balance Ability Poor Device Used FWW M6 PT-IP Treatment Start: 07/12/24 14:16 Freq: NEEDED Status: Active Protocol: Document 07/12/24 10:55 AB (Rec: 07/12/24 14:29 AB [id number]) Physical Therapy Treatment Education Education Provided Precautions,Weight Bearing Status,Post-Op Packet,Safety M7 PT-IP Assessment and Plan Start: 07/12/24 14:16 Freq: NEEDED Status: Active Protocol: Document 07/12/24 10:55 AB (Rec: 07/12/24 14:29 [id number]) PT Summary Assessment and Plan Potential Rehabilitation Potential Fair Status of Condition at Evaluation Evolving Summary Impairments Pain,ROM,Strength,Balance, Coordination,Sensation,Tone, Cognition,Bed Mobility, Transfers,Gait,Activity Tolerance Assessment Summary pt is an 84 y/o M who presented with SBO and underwent ex-lap enetectomy. pt with abdominal precautions. pt requiring max A x 1-2 with mobility. pt lives with spouse but will be limited to the assistance she can provide pt. pt will benefit from SNF rehab to improve overall strength and mobility independence. Goals Bed Mobility Goal Standby Assistance Transfer Goal Standby Assistance,Front Wheeled Walker Gait Goal Standby Assistance,Front Wheel Walker Gait Distance 100 Other Goals improve bed mobility, transfers, ambulation using 4WW mod I Days to Meet Goals 10 Frequency of Treatment Frequency Of Treatment Once a Day Treatment Plan Physical Therapy Treatment Plan Bed Mobility Training,Transfer Training,Gait Training, Therapeutic Exercise,Balance Retraining,Post Op Education, Discharge Planning,Hot or Cold Pack,Neuromuscular Re-ed, Coordination Retraining,Manual Therapy Precautions Abdominal Surgery Precautions Log Roll,Lifting Restrictions, Gait Belt above Incisional Area Recommendations To Nursing Amount of Assist Needed 2 Person Assist Discharge Recommendations PT Discharge Recommendations SNF Rehab Transportation Needs at Discharge Wheelchair/Cabulance
--- NOTE | 2024-07-12 11:43 | CM.DANOTE ---
Initial DCP Assessment Note Pt is an 84 yo male, resident of [place] [facility], arrives with abd pain, dx with small bowel obstruction now s/p resection due to ischemic and partially necrotic mid small bowel. PCP: Sybil Maxwell Payer: [employer] Reviewed chart, met w/patient, spouse and daughter Janet (who lives in [place]) introduced self and role. Patient lives with spouse and has been struggling to mobilize recently. Spouse reports it is mostly due to patient's severe knee pain. Patient is scheduled with Dr Cabrera for a TKA which has needed to be rescheduled twice. Patient is very COMANCHE with macular degeneration. Patient/sp do not currently have in home care or services. Patient has hx of SNF stay in [place] near his daughter. Spouse reports patient had a respite stay at an [facility] in the past. Patient/sp have intermediate care insurance. Strongly encouraged spouse to research their computer terminal operator care plan and what is available for in home care. Provided intermediate care resource material including Senior resources book, info about [facility] senior resources and discussed [employer] [facility] [employer] consulting and [employer] caregiver agency. Discussed discharge plan. PT recommending SNF. Patient/family agree with the recommendation and request a referral to [facility] in [place]. Family will research add SNF options and star ratings. PASRR completed and referral faxed to [facility] [phone]. Plan: Discharge to SNF is anticipated, likely via wheelchair. SNF referral has been started, needs follow up. Patient will have had his three INPT nights 07/14. CM team will plan to follow closely for planning and coordination of discharge plan. KIANNA Aj Discharge Planning/Care Management CM Discharge Assessment Start: 07/12/24 11:20 Freq: Status: Active Protocol: Document 07/12/24 11:40 JERE (Rec: 07/12/24 11:43 JERE [id number]) Discharge Planning Assessment Assigned Junior Sales Representative KIANNA Robbins DPOA/Assigned Designee Name Breana Ruelas, spouse Contact Information [phone] Advance Directives? No History Provided By Patient,Family Member, Significant Other,Medical Record Prior Living Arrangements House Household Members spouse Type of transporation used prior to Relies on Others admit Independent with ADL's No Is patient alert and oriented? Yes: Very COMANCHE, macular degeneration Needs Assistance With Bathing,Grooming,Meal Prep, Managing Medications,Home Chores / Shopping Caregiver for Another No DME Already Rented / Owned FWW / Walker Barriers to Discharge Yes Comment Spouse and daughter may not be able to meet patient's care needs at home if he is far below PLOF. Awaiting therapy recommendation. Patient/sp request referral to [facility] in [place]. Transportation Arrangement TBD. Likely wheelchair van vs family auto. Referrals Initiated Group Home Whiteboard Updated in Patient Room with Yes name and ext. # of Junior Sales Representative
--- NOTE | 2024-07-12 11:44 | PM.PN.1 ---
Subjective Subjective Date Patient Seen: 07/12/24 Time Patient Seen: 11:44 Interval history: No complaints Exam Vital Signs (past 8 hours): - 07/12/24 04:00 07/12/24 04:00 07/12/24 04:30 Temperature Pulse Rate 58 L 69 Respiratory Rate 28 H 29 H Blood Pressure 143/70 H Pulse Oximetry 97 97 Oxygen Delivery Method 07/12/24 05:00 07/12/24 05:00 07/12/24 05:30 Temperature Pulse Rate 60 58 L Respiratory Rate 12 12 Blood Pressure 131/69 Pulse Oximetry 95 95 Oxygen Delivery Method 07/12/24 06:00 07/12/24 06:00 07/12/24 06:30 Temperature Pulse Rate 62 60 Respiratory Rate 22 32 H Blood Pressure 137/70 Pulse Oximetry 96 97 Oxygen Delivery Method 07/12/24 07:00 07/12/24 07:00 07/12/24 07:00 Temperature Pulse Rate 59 L Respiratory Rate 37 H Blood Pressure 129/65 Pulse Oximetry 96 Oxygen Delivery Method Nasal Cannula 07/12/24 07:29 Temperature 97.3 F L Pulse Rate Respiratory Rate Blood Pressure Pulse Oximetry Oxygen Delivery Method Oxygen Delivery Method Nasal Cannula Oxygen Flow Rate 2 Const General: No acute distress Other: In good spirits Objective Labs 07/12/24 04:25 07/12/24 04:25 Labs: Laboratory Results - last 24 hr 07/11/24 07/11/24 07/12/24 15:50 20:20 00:15 WBC 7.9 RBC 4.65 Hgb 13.0 L Hct 39.1 L MCV 84.0 MCH 28.0 MCHC 33.3 RDW 16.5 H Plt Count 264 Neut % (Auto) 67.4 Lymph % (Auto) 17.6 L [place] % (Auto) 12.7 Eos % (Auto) 1.6 L Baso % (Auto) 0.7 Neut # (Auto) 5300 Lymph # (Auto) 1400 [place] # (Auto) 1000 H Eos # (Auto) 100 Baso # (Auto) 100 Sodium 134 L Potassium 3.5 Chloride 103 Carbon Dioxide 17 L BUN 23 H Creatinine 0.95 Estimated GFR > 60 BUN/Creatinine Ratio 24.2 H Glucose 214 H Lactate 3.7 H 1.8 Calcium 9.2 Total Bilirubin 0.4 AST 43 ALT 30 Alkaline Phosphatase 160 H Total Protein 7.4 Albumin 4.5 Globulin 2.9 Albumin/Globulin Ratio 1.6 Lipase 99 Nasal Screen MRSA (PCR) Not detected 07/12/24 04:25 WBC 6.6 RBC 4.32 L Hgb 12.2 L Hct 36.2 L MCV 83.8 MCH 28.3 MCHC 33.8 RDW 15.9 H Plt Count 205 Neut % (Auto) 89.4 H D Lymph % (Auto) 6.7 L [place] % (Auto) 3.9 Eos % (Auto) 0.0 L Baso % (Auto) 0.0 Neut # (Auto) 5900 Lymph # (Auto) 400 L [place] # (Auto) 300 Eos # (Auto) 0 Baso # (Auto) 0 Sodium 134 L Potassium 3.8 Chloride 107 Carbon Dioxide 22 BUN 15 Creatinine 0.55 L Estimated GFR > 60 BUN/Creatinine Ratio 27.3 H Glucose 153 H Lactate Calcium 8.2 L Total Bilirubin 0.4 AST 39 ALT 22 Alkaline Phosphatase 134 H Total Protein 6.1 L Albumin 3.5 Globulin 2.6 Albumin/Globulin Ratio 1.3 Lipase Nasal Screen MRSA (PCR) [facility] Medical History (Updated 07/11/24 @ 21:20 by Zuhair Villeda MD) Atrial fibrillation Stroke Aortic stenosis Abdominal aortic aneurysm Surgical History (Updated 07/11/24 @ 21:07 by Zuhair Villeda MD) History of appendectomy H/O aortic aneurysm repair S/P TAVR (transcatheter aortic valve replacement) Social History household members: spouse Smoking Status: Never smoker alcohol intake: former Assessment & Plan Assessment and plan (1) Small bowel obstruction: Problem details: 84-year-old man PMH aortic stenosis status post TAVR, AAA status post repair, atrial fibrillation with an acute small bowel obstruction. CT with a clear transition point in the right lower quadrant and radiology notes mesenteric congestion. While not peritoneal at this point I think early intervention is indicated. If the mesenteric congestion/venous outflow does not improve he will progress to sujata bowel ischemia and perforation which at his advanced age and with his comorbidities would be quite morbid. Overview of the operation its indications alternative and risks including hemorrhage, infection, anastomotic leak, stroke, myocardial infarction and were reviewed. Their questions have been answered. He provides his consent to proceed. Status: Acute Plan Doing well Start clear liquid diet Await bowel function Time-Based Coding :: [TOTAL MINUTES] spent with patient and on the chart (including review of chart, obtaining history, exam, reviewing outside data, placing orders, documenting exam and treatment plan, and counseling patient) on [DATE]. Quality VTE Deep Vein Thrombosis/Pulmonary Embolism Present on Admission: No
--- NOTE | 2024-07-12 12:36 | PC.NURSE ---
Edwards catheter discontinued per physician order 07/12/24 at 1220. Pt tolerated removal. Provided urinal and instructions to call staff for help. Pt due to void 0.
--- NOTE | 2024-07-12 12:39 | P.PN_ITS ---
Subjective Subjective Date Patient Seen: 07/12/24 Time Patient Seen: 09:40 Interval history: 84-year-old male with past medical history of aortic stenosis s/p TAVR, abdominal aortic aneurysm status post repair, atrial fibrillation and CVA presents with abdominal pain with nausea and vomiting. Of note, the patient was recently admitted and discharged from outside hospital for generalized weakness. Extensive workup outside hospital was negative for any iteology. The patient was sent home to follow up with his PCP. Today the patient was about to follow up with his PCP when he had a cute onset of abdominal pain after having lunch. The patient states that his pain was generalized, sharp and severe. The patient did have some nausea and non bloody vomiting but denies any diarrhea, fever, chills, chest pain, shortness of breath or dysuria.? In our emergency room, the patient with hemodynamically stable with lab showing elevate lactate of about 3. CT scan of patient's abdomen? shows small bowel obstruction with possible bowel ischemia. Dr Villeda from general surgery was consulted immediately and the patient was taken straight from our emergency room to the operating room. The patient was seen by me after his surgery in ICU and the patient was hemodynamically stable and awake. The patients report that his pain is control. I did speak to Dr Villeda who reports that he did resect a small part of the bowel due to ischemia. Dr Villeda said the operation was a success. His recommendation is to keep the patient NPO for now with pain control and monitor hemodynamics.?. Interval history. The patient is seen postoperatively, stating he is feeling quite well in fact, with a small bowel movement and passage of flatus, no significant abdominal discomfort. He is working with physical therapy and just getting out of bed Exam Vital Signs (past 8 hours): - 07/12/24 05:00 07/12/24 05:00 07/12/24 05:30 Temperature Pulse Rate 60 58 L Respiratory Rate 12 12 Blood Pressure 131/69 Pulse Oximetry 95 95 Oxygen Delivery Method 07/12/24 06:00 07/12/24 06:00 07/12/24 06:30 Temperature Pulse Rate 62 60 Respiratory Rate 22 32 H Blood Pressure 137/70 Pulse Oximetry 96 97 Oxygen Delivery Method 07/12/24 07:00 07/12/24 07:00 07/12/24 07:00 Temperature Pulse Rate 59 L Respiratory Rate 37 H Blood Pressure 129/65 Pulse Oximetry 96 Oxygen Delivery Method Nasal Cannula 07/12/24 07:29 Temperature 97.3 F L Pulse Rate Respiratory Rate Blood Pressure Pulse Oximetry Oxygen Delivery Method Oxygen Delivery Method Nasal Cannula Oxygen Flow Rate 2 Narrative Exam Narrative: GENERAL: This is a well-nourished, well-developed patient, in no apparent distress. HEAD: Atraumatic. Normocephalic. No temporal or scalp tenderness. EYES: Pupils equal round and reactive. Extraocular motions intact. No scleral icterus. No injection or drainage. ENT: Mucous membranes pink and moist. NECK: Trachea midline. No JVD, bruits or lymphadenopathy. Supple, nontender, no meningeal signs. CARDIOVASCULAR: Regular rate and rhythm without murmurs, gallops, or rubs. RESPIRATORY: Clear to auscultation. GASTROINTESTINAL: Abdomen soft, non-tender, nondistended, low midline abdominal incision noted, bandage with a small amount of blood, otherwise intact. EXTREMITIES: No clubbing, cyanosis, or edema. BACK: Nontender without deformity or crepitance. No flank tenderness. NEUROLOGIC: Alert, oriented, speech fluent, full upper and lower motor strength, no focal deficits evident. DERMATOLOGIC: No rashes or skin lesions. Objective Labs 07/12/24 04:25 07/12/24 04:25 Labs: Laboratory Results - last 24 hr 07/11/24 07/11/24 07/12/24 15:50 20:20 00:15 WBC 7.9 RBC 4.65 Hgb 13.0 L Hct 39.1 L MCV 84.0 MCH 28.0 MCHC 33.3 RDW 16.5 H Plt Count 264 Neut % (Auto) 67.4 Lymph % (Auto) 17.6 L [place] % (Auto) 12.7 Eos % (Auto) 1.6 L Baso % (Auto) 0.7 Neut # (Auto) 5300 Lymph # (Auto) 1400 [place] # (Auto) 1000 H Eos # (Auto) 100 Baso # (Auto) 100 Sodium 134 L Potassium 3.5 Chloride 103 Carbon Dioxide 17 L BUN 23 H Creatinine 0.95 Estimated GFR > 60 BUN/Creatinine Ratio 24.2 H Glucose 214 H Lactate 3.7 H 1.8 Calcium 9.2 Total Bilirubin 0.4 AST 43 ALT 30 Alkaline Phosphatase 160 H Total Protein 7.4 Albumin 4.5 Globulin 2.9 Albumin/Globulin Ratio 1.6 Lipase 99 Nasal Screen MRSA (PCR) Not detected 07/12/24 04:25 WBC 6.6 RBC 4.32 L Hgb 12.2 L Hct 36.2 L MCV 83.8 MCH 28.3 MCHC 33.8 RDW 15.9 H Plt Count 205 Neut % (Auto) 89.4 H D Lymph % (Auto) 6.7 L [place] % (Auto) 3.9 Eos % (Auto) 0.0 L Baso % (Auto) 0.0 Neut # (Auto) 5900 Lymph # (Auto) 400 L [place] # (Auto) 300 Eos # (Auto) 0 Baso # (Auto) 0 Sodium 134 L Potassium 3.8 Chloride 107 Carbon Dioxide 22 BUN 15 Creatinine 0.55 L Estimated GFR > 60 BUN/Creatinine Ratio 27.3 H Glucose 153 H Lactate Calcium 8.2 L Total Bilirubin 0.4 AST 39 ALT 22 Alkaline Phosphatase 134 H Total Protein 6.1 L Albumin 3.5 Globulin 2.6 Albumin/Globulin Ratio 1.3 Lipase Nasal Screen MRSA (PCR) [facility] Medical History (Updated 07/11/24 @ 21:20 by Zuhair Villeda MD) Atrial fibrillation Stroke Aortic stenosis Abdominal aortic aneurysm Surgical History (Updated 07/11/24 @ 21:07 by Zuhair Villeda MD) History of appendectomy H/O aortic aneurysm repair S/P TAVR (transcatheter aortic valve replacement) Social History household members: spouse Smoking Status: Never smoker alcohol intake: former Assessment & Plan Assessment & Plan narrative: 1. SBO with partial bowel ischemia? s/p surgical intervention and partial bowel resection.? ?Admit the patient ICU with telemetry.? Of note Per Dr. Villeda from general surgery, we are to continue to keep the patient NPO for now, pain control, IV fluid and monitor hemodynamics. Of note patient is sensitive to pain medication with dropping his blood pressure Will keep a close eye on his blood pressure and be very cautious with pain medication. No antibiotic? needed at this time per Dr. Villeda.? 2. AFib with a history of CVA. Will resume patients home medication but will hold antiplatelet or anticoagulation until clear by surgery. 3. History of aortic stenosis status post TAVR.? Of note, patient recent echo shows only mild diastolic heart failure but otherwise everything else stable. 4. Abdominal aortic aneurysm, status post repair. The patient and his affirm that this is being followed closely by vascular. He remains asymptomatic. Outpatient follow-up advised. 5. Osteoarthritis, planning right total knee replacement. This is on hold until further notice. 6. Generalized weakness.? The patient has recent thorough workup at outside hospital which were negative. PT/OT. 7. DVT prophylaxis defer to general surgery continue SCDs for now . Code status DNR DNI per the patient's request . Disposition likely home in 2 days . Time-Based Coding :: [TOTAL MINUTES] spent with patient and on the chart (including review of chart, obtaining history, exam, reviewing outside data, placing orders, documenting exam and treatment plan, and counseling patient) on [DATE]. Quality VTE Deep Vein Thrombosis/Pulmonary Embolism Present on Admission: No PROFEE Charge codes Subsequent inpatient/observation care: 59129
--- NOTE | 2024-07-12 13:59 | CM.DPNOTE ---
DCP Cont Patient's spouse and daughter have requested that a SNF referral be sent to [facility]. Family has placed this SNF as their first choice, over [facility]. [facility] will be more easily accessible for daughter and spouse, and patient has been there in the past. This SALES & SERVICE ASSOCIATE placed call to [facility] and got in touch with Denisse in admissions, cell P [phone]. Denisse requests this referral be emailed to [email or web address]. Denisse will request her clinical team review this weekend, at the latest Sunday. Emailed this referral, attached @[facility] social media community manager to continue this coordination. Plan: Anticipate discharge to [facility] SNF if they can accept. Transportation needs to be determined. JERE
[2024-07-12] MEDS: AMIODARONE 200 MG TABLET 100 MG PO (14:17)
[2024-07-12] MEDS: ATORVASTATIN 20 MG TABLET PO (20:05)
[2024-07-12] MEDS: SODIUM CHLORIDE 0.9% 1,000 ML 84 ML IV (22:09)
[2024-07-13] MEDS: MELATONIN 3 MG TABLET 6 MG PO ×2 (01:03→20:33)
[2024-07-13 03:00] VITALS: PULSE 63; RESP 16
[2024-07-13 04:00] VITALS: PULSE 63; RESP 19
--- NOTE | 2024-07-13 05:59 | PC.NURSE ---
Pt had not voided since removal of removal at 1220, bladder scanned for 0 mLs, mIVF were started and pt had adequate output overnight using urinal. Abd dressing has drainage - unchanged since previous shift. No pain. Unable to sleep. Reported passing gas several times overnight.
[2024-07-13 07:16] VITALS: BP 135/68; PULSE 61; RESP 21; O2SAT 96
[2024-07-13] MEDS: AMIODARONE 200 MG TABLET 100 MG PO (08:31)
[2024-07-13] MEDS: AMLODIPINE 5 MG TABLET PO (08:31)
[2024-07-13] MEDS: ASPIRIN EC 81 MG TABLET PO (08:31)
[2024-07-13] MEDS: FLUoxetine 10 MG CAPSULE PO (08:55)
--- NOTE | 2024-07-13 09:10 | P.PN_ITS ---
Subjective Subjective Date Patient Seen: 07/13/24 Time Patient Seen: 08:05 Interval history: 84-year-old male with past medical history of aortic stenosis s/p TAVR, abdominal aortic aneurysm status post repair, atrial fibrillation and CVA presents with abdominal pain with nausea and vomiting. Of note, the patient was recently admitted and discharged from outside hospital for generalized weakness. Extensive workup outside hospital was negative for any iteology. The patient was sent home to follow up with his PCP. Today the patient was about to follow up with his PCP when he had a cute onset of abdominal pain after having lunch. The patient states that his pain was generalized, sharp and severe. The patient did have some nausea and non bloody vomiting but denies any diarrhea, fever, chills, chest pain, shortness of breath or dysuria.? In our emergency room, the patient with hemodynamically stable with lab showing elevate lactate of about 3. CT scan of patient's abdomen? shows small bowel obstruction with possible bowel ischemia. Dr Villeda from general surgery was consulted immediately and the patient was taken straight from our emergency room to the operating room. The patient was seen by me after his surgery in ICU and the patient was hemodynamically stable and awake. The patients report that his pain is control. I did speak to Dr Villeda who reports that he did resect a small part of the bowel due to ischemia. Dr Villeda said the operation was a success. His recommendation is to keep the patient NPO for now with pain control and monitor hemodynamics.?. Interval history. The patient states he is feeling well, had two small bowel movements and passage of flatus, tolerating a clear liquid diet, no significant abdominal discomfort. Exam Vital Signs (past 8 hours): - 07/13/24 07:16 Pulse Rate 61 Respiratory Rate 21 Blood Pressure 135/68 Pulse Oximetry 96 Oxygen Delivery Method Nasal Cannula Oxygen Flow Rate 2 Narrative Exam Narrative: GENERAL: This is a well-nourished, well-developed patient, in no apparent distress. EYES: Pupils equal round and reactive. Extraocular motions intact. No scleral icterus. No injection or drainage. ENT: Mucous membranes pink and moist. NECK: Supple, nontender, no meningeal signs. CARDIOVASCULAR: Regular rate and rhythm without murmurs, gallops, or rubs. RESPIRATORY: Clear to auscultation. GASTROINTESTINAL: Abdomen soft, non-tender, nondistended, low midline abdominal incision noted, bandage with a small amount of blood, otherwise intact. EXTREMITIES: No clubbing, cyanosis, or edema. NEUROLOGIC: Alert, oriented, speech fluent, full upper and lower motor strength, no focal deficits evident. DERMATOLOGIC: No rashes or skin lesions. Objective Labs 07/12/24 04:25 07/12/24 04:25 [facility] Medical History (Updated 07/11/24 @ 21:20 by Zuhair Villeda MD) Atrial fibrillation Stroke Aortic stenosis Abdominal aortic aneurysm Surgical History (Updated 07/11/24 @ 21:07 by Zuhair Villeda MD) History of appendectomy H/O aortic aneurysm repair S/P TAVR (transcatheter aortic valve replacement) Social History household members: spouse Smoking Status: Never smoker alcohol intake: former Assessment & Plan Assessment & Plan narrative: 1. SBO with partial bowel ischemia? s/p surgical intervention and partial bowel resection 07/11/2024.? ?Doing well advancing clear liquid diet. Per surgery. 2. AFib with a history of CVA. Stable on home meds. 3. History of aortic stenosis status post TAVR.? Of note, patient recent echo shows only mild diastolic heart failure but otherwise stable. 4. Abdominal aortic aneurysm, status post repair. The patient and his affirmed that this is being followed closely by vascular. He remains asymptomatic. Outpatient follow-up advised. 5. Osteoarthritis, planning right total knee replacement. This is on hold until further notice. Recall he was sent here by his orthopedist Dr. Kate Cabrera during a preop visit when he presented to her office with abdominal pain. 6. Generalized weakness.? The patient has recent thorough workup at outside hospital which were negative. PT/OT. 7. DVT prophylaxis defer to general surgery continue SCDs for now . Code status DNR DNI per the patient's request . Disposition per surgery. Time-Based Coding :: [TOTAL MINUTES] spent with patient and on the chart (including review of chart, obtaining history, exam, reviewing outside data, placing orders, documenting exam and treatment plan, and counseling patient) on [DATE]. Quality VTE Deep Vein Thrombosis/Pulmonary Embolism Present on Admission: No PROFEE Charge codes Subsequent inpatient/observation care: [id number]
[2024-07-13] MEDS: SODIUM CHLORIDE 0.9% 1,000 ML 84 ML IV (10:08)
--- NOTE | 2024-07-13 11:07 | PM.PN.1 ---
Subjective Subjective Date Patient Seen: 07/13/24 Time Patient Seen: 11:08 Interval history: Doing well. No complaints. Has passed flatus. Exam Vital Signs (past 8 hours): - 07/13/24 04:00 07/13/24 07:16 Pulse Rate 63 61 Respiratory Rate 19 21 Blood Pressure 135/68 Pulse Oximetry 96 Oxygen Delivery Method Nasal Cannula Oxygen Flow Rate 2 Const General: No acute distress Orientation: alert Resp Effort & Inspection: normal respiratory effort GI Other: Abdominal soft, wound looks good Objective Labs 07/12/24 04:25 07/12/24 04:25 [facility] Medical History (Updated 07/11/24 @ 21:20 by Zuhair Villeda MD) Atrial fibrillation Stroke Aortic stenosis Abdominal aortic aneurysm Surgical History (Updated 07/11/24 @ 21:07 by Zuhair Villeda MD) History of appendectomy H/O aortic aneurysm repair S/P TAVR (transcatheter aortic valve replacement) Social History household members: spouse Smoking Status: Never smoker alcohol intake: former Assessment & Plan Assessment and plan (1) Small bowel obstruction: Problem details: 84-year-old man PMH aortic stenosis status post TAVR, AAA status post repair, atrial fibrillation with an acute small bowel obstruction. CT with a clear transition point in the right lower quadrant and radiology notes mesenteric congestion. While not peritoneal at this point I think early intervention is indicated. If the mesenteric congestion/venous outflow does not improve he will progress to sujata bowel ischemia and perforation which at his advanced age and with his comorbidities would be quite morbid. Overview of the operation its indications alternative and risks including hemorrhage, infection, anastomotic leak, stroke, myocardial infarction and were reviewed. Their questions have been answered. He provides his consent to proceed. Status: Acute Plan Advance diet to full liquids Making arrangements for rehab Time-Based Coding :: [TOTAL MINUTES] spent with patient and on the chart (including review of chart, obtaining history, exam, reviewing outside data, placing orders, documenting exam and treatment plan, and counseling patient) on [DATE]. Quality VTE Deep Vein Thrombosis/Pulmonary Embolism Present on Admission: No
--- NOTE | 2024-07-13 11:18 | CM.DPNOTE ---
DCP Note SUPERVISOR BORDER DEPARTMENT reviewed EMR. Per RN report, no BM yet, pt POD2, and overall pretty weak. SUPERVISOR BORDER DEPARTMENT lvm with Deinsse (p [phone]) at [facility], accepting at the SNF pending. SUPERVISOR BORDER DEPARTMENT emailed her copy of PT eval for review. SUPERVISOR BORDER DEPARTMENT lvm with spouse Breana ([phone]), no response yet. SUPERVISOR BORDER DEPARTMENT attempted to meet with pt in room, resting heavily allowed to sleep. Plan: Anticipate discharge to [facility] if they can accept. Transportation needs to be determined. KIANNA Osborn
--- NOTE | 2024-07-13 13:37 | PT.IPTN ---
Current Diagnoses Unspecified intestinal obstruction, unspecified as to partial versus complete obstruction (07/11/24) Surgery Performed Operation Date: 07/11/24 22:00 Actual Procedures p Exploratory Laparotomy, Small Bowel Resection(Not Applicable) - Zuhair Villeda MD Physical Therapy Treatment Note M2 PT-IP Current Condition Start: 07/12/24 14:16 Freq: NEEDED Status: Active Protocol: Document 07/12/24 10:55 AB (Rec: 07/12/24 14:29 AB [id number]) Physical Therapy Current Condition Current Condition Evaluation Date 07/12/24 Treatment Diagnosis SBO s/p ex-lap enterectomy; difficulty in walking Onset Date 07/11/24 M3 PT-IP Subjective Start: 07/12/24 14:16 Freq: NEEDED Status: Active Protocol: Document 07/13/24 13:19 MB (Rec: 07/13/24 13:37 MB [id number]) Subjective Physical Therapy Visit Type Type Treatment Note Visit Start Time 13:19 Visit Stop Time 13:29 Number of GRAVITY PROSPECTING SUPERVISOR Visits 0 Physical Therapy Visit Comments Patient Comments Pt up in chair and nsg getting ready to assist him back to bed and PT assists pt as well. M4 PT-IP Mobility and Gait Start: 07/12/24 14:16 Freq: NEEDED Status: Active Protocol: Document 07/13/24 13:19 MB (Rec: 07/13/24 13:37 MB [id number]) PT-Bed Mobility Assessment Sit to Supine Sit to Supine Minimal Assistance,Head of Bed Elevated,Bedrails PT-Transfer Assessment Sit to and From Stand Sit to and from Stand Maximum Assistance,1 Person Assistance,2 Person Assistance ,Use of Upper Extremities Equipment Transfer Assistive Device Gait Belt,Front Wheeled Walker Orthotic/Prosthetic Devices or Brace: No Transfers Transfer Destination Chair Transfer Technique Stepping Transfer Ability Level of Assist Maximum Assistance,1 Person Assistance,2 Person Assistance ,Use of Upper Extremities Comments Mobility Comments Heavy assistance through gait belt for STS from chair to RW. Pt with left greater than right knee changes and decreased functional extension and ability to stand upright. Gait Assessment Gait Gait Assistance Required: Maximum Assistance,1 Person Assist,2 Person Assist Distance (Feet) 1 Able to Maintain Weight Bearing Status Yes During Gait Assistive Devices Assistive Device Gait Belt,Front Wheeled Walker Orthotic/Prosthetic Devices or Brace: No Gait Deviations General Gait Pattern Antalgic,Decreased Stride Length,Decreased Feet Clearance,Flexed Trunk,Step-to Gait,Wide Based Gait Factors Limiting Gait Function Factors Limiting Gait Function Decreased Activity Tolerance, Decreased Strength,Difficulty Following Directions, Incoordination,Limited Range of Motion,Pain,Poor Balance, Poor Safety Awareness Comments Gait Comments Strong posterior lean and inability to step further this date PT-Balance Assessment Sitting Balance and Reactions Static Sitting Balance Ability Fair Dynamic Sitting Balance Ability Fair Standing Balance and Reactions Static Standing Balance Ability Poor Dynamic Standing Balance Ability Poor Device Used FWW M6 PT-IP Treatment Start: 07/12/24 14:16 Freq: NEEDED Status: Active Protocol: Document 07/13/24 13:19 MB (Rec: 07/13/24 13:37 MB [id number]) Physical Therapy Treatment Education Education Provided Safety M7 PT-IP Assessment and Plan Start: 07/12/24 14:16 Freq: NEEDED Status: Active Protocol: Document 07/13/24 13:19 MB (Rec: 07/13/24 13:37 MB [id number]) PT Summary Assessment and Plan Potential Rehabilitation Potential Fair Status of Condition at Evaluation Evolving Summary Impairments Pain,ROM,Strength,Balance, Coordination,Sensation,Tone, Bed Mobility,Transfers,Gait, Activity Tolerance Progress Towards Goals Slow Progress due to Pain,Slow Progress due to Activity Tolerance Assessment Summary Pt con't to require heavy assistance for STS and stepping to bed. He is pleasant and has significant changes in left greater than right knee and this limits mobility. Recommend SNF at d/c . Goals Bed Mobility Goal Independent Transfer Goal Standby Assistance,Front Wheeled Walker Gait Goal Standby Assistance,Front Wheel Walker Gait Distance 50 Other Goals improve bed mobility, transfers, ambulation using 4WW mod I Days to Meet Goals 10 Frequency of Treatment Frequency Of Treatment Once a Day Treatment Plan Physical Therapy Treatment Plan Bed Mobility Training,Transfer Training,Gait Training, Therapeutic Exercise,Balance Retraining,Post Op Education, Discharge Planning,Hot or Cold Pack,Neuromuscular Re-ed, Coordination Retraining,Manual Therapy Precautions Abdominal Surgery Precautions Log Roll,Lifting Restrictions, Gait Belt above Incisional Area Recommendations To Nursing Amount of Assist Needed 2 Person Assist Discharge Recommendations PT Discharge Recommendations SNF Rehab Transportation Needs at Discharge Wheelchair/Cabulance
[2024-07-13] MEDS: ONDANSETRON 4 MG/2 ML INJ IV (17:01)
[2024-07-13 20:00] VITALS: BP 161/74; PULSE 65; RESP 22; TEMP 36.3; O2SAT 95
[2024-07-13] MEDS: ATORVASTATIN 20 MG TABLET PO (20:33)
[2024-07-14] VITALS (27 sets, daily range): BP systolic 119–143; BP diastolic 60–77; PULSE 54–83; RESP 13–34; TEMP 36.2–36.7; O2SAT 94–98
[2024-07-14] MEDS: AMLODIPINE 5 MG TABLET PO (08:39)
[2024-07-14] MEDS: AMIODARONE 200 MG TABLET 100 MG PO (08:39)
[2024-07-14] MEDS: FLUoxetine 10 MG CAPSULE PO (08:39)
[2024-07-14] MEDS: ASPIRIN EC 81 MG TABLET PO (08:39)
[2024-07-14 11:41] LABS: COVID19 -Nasal RAPID Negative (Negative)
--- NOTE | 2024-07-14 13:03 | CM.DPNOTE ---
DCP Cont In coordination with Denisse at [facility] P [phone] F [phone] [email or web address] P [phone], they can accept patient tomorrow and prefer he arrive in the morning. Updated spouse Milli who is agreeable to plan. Discussing transportation with PT, RN and spouse; sp states she would like to drive patient rather than pay for the cost of cabulance. RN does not feel patient needs BLS, cabulance vs private vehicle okay as long as staff assist patient into sp's car. Denisse requires the following before admission: - PASRR done, emailed. - Negative COVID test done, emailed. - DC Orders/Summary sent via email prior to DC. Narcotic scripts (if applicable) can be sent to [facility]: fax # [phone], phone # [phone] will plan to send when completed. Patient is not on narcotics and has no home meds coming with him- updated Denisse with this info Plan: Discharge to [facility] SNF anticipated Sunday 07/15 via spouse's vehicle. CM team following closely for coordination. JERE
--- NOTE | 2024-07-14 14:08 | PM.PN.1 ---
Subjective Subjective Date Patient Seen: 07/14/24 Time Patient Seen: 14:08 Interval history: Lawson is doing well today. Has not flatus. Tolerating his diet. He is looking forward try solid food. Exam Vital Signs (past 8 hours): - 07/14/24 07:24 07/14/24 07:24 07/14/24 08:00 Temperature 97.1 F L Pulse Rate 83 Respiratory Rate 16 Blood Pressure 132/71 Pulse Oximetry 94 Oxygen Delivery Method Room Air Oxygen Flow Rate 0 07/14/24 08:30 07/14/24 09:00 07/14/24 09:30 Temperature Pulse Rate 83 70 64 Respiratory Rate 28 H 24 17 Blood Pressure Pulse Oximetry Oxygen Delivery Method Oxygen Flow Rate 07/14/24 10:00 07/14/24 10:30 07/14/24 11:00 Temperature Pulse Rate 59 L 57 L 62 Respiratory Rate 14 13 21 Blood Pressure Pulse Oximetry Oxygen Delivery Method Oxygen Flow Rate 07/14/24 11:09 07/14/24 11:09 Temperature 97.8 F Pulse Rate 63 Respiratory Rate 29 H Blood Pressure 119/60 Pulse Oximetry Oxygen Delivery Method Oxygen Flow Rate Oxygen Delivery Method Room Air Oxygen Flow Rate 0 Const General: No acute distress Other: Abdomen is soft nontender Objective Labs 07/12/24 04:25 07/12/24 04:25 Labs: Laboratory Results - last 24 hr 07/14/24 11:18 SARS-CoV-2 (PCR) Negative [facility] Medical History (Updated 07/11/24 @ 21:20 by Zuhair Villeda MD) Atrial fibrillation Stroke Aortic stenosis Abdominal aortic aneurysm Surgical History (Updated 07/11/24 @ 21:07 by Zuhair Villeda MD) History of appendectomy H/O aortic aneurysm repair S/P TAVR (transcatheter aortic valve replacement) Social History household members: spouse Smoking Status: Never smoker alcohol intake: former Assessment & Plan Assessment and plan (1) Small bowel obstruction: Problem details: 84-year-old man PMH aortic stenosis status post TAVR, AAA status post repair, atrial fibrillation with an acute small bowel obstruction. CT with a clear transition point in the right lower quadrant and radiology notes mesenteric congestion. While not peritoneal at this point I think early intervention is indicated. If the mesenteric congestion/venous outflow does not improve he will progress to sujata bowel ischemia and perforation which at his advanced age and with his comorbidities would be quite morbid. Overview of the operation its indications alternative and risks including hemorrhage, infection, anastomotic leak, stroke, myocardial infarction and were reviewed. Their questions have been answered. He provides his consent to proceed. Status: Acute Plan Expect transferred to rehab tomorrow by 9:00 a.m.. Time-Based Coding :: [TOTAL MINUTES] spent with patient and on the chart (including review of chart, obtaining history, exam, reviewing outside data, placing orders, documenting exam and treatment plan, and counseling patient) on [DATE]. Quality VTE Deep Vein Thrombosis/Pulmonary Embolism Present on Admission: No
--- NOTE | 2024-07-14 15:19 | PT.IPTN ---
Current Diagnoses Unspecified intestinal obstruction, unspecified as to partial versus complete obstruction (07/11/24) Surgery Performed Operation Date: 07/11/24 22:00 Actual Procedures p Exploratory Laparotomy, Small Bowel Resection(Not Applicable) - Zuhair Villeda MD Physical Therapy Treatment Note M2 PT-IP Current Condition Start: 07/12/24 14:16 Freq: NEEDED Status: Active Protocol: Document 07/12/24 10:55 AB (Rec: 07/12/24 14:29 AB [id number]) Physical Therapy Current Condition Current Condition Evaluation Date 07/12/24 Treatment Diagnosis SBO s/p ex-lap enterectomy; difficulty in walking Onset Date 07/11/24 M3 PT-IP Subjective Start: 07/12/24 14:16 Freq: NEEDED Status: Active Protocol: Document 07/14/24 14:53 MB (Rec: 07/14/24 15:18 MB [id number]) Subjective Physical Therapy Visit Type Type Treatment Note Visit Start Time 14:53 Visit Stop Time 15:10 Number of ELECTROPLATING SALES REPRESENTATIVE Visits 0 Physical Therapy Visit Comments Patient Comments Pt is agreeable to practicing transfer to prepare for getting in and out of 's car for transferring to SNF tomorrow. Therapy Pain Assessment Pain Present Pain Present Denied Pain M4 PT-IP Mobility and Gait Start: 07/12/24 14:16 Freq: NEEDED Status: Active Protocol: Document 07/14/24 14:53 MB (Rec: 07/14/24 15:18 MB [id number]) PT-Bed Mobility Assessment Supine to Sit Supine to Sit Contact Guard Assistance,1 Person Assistance,Head of Bed Elevated,Bedrails Scooting Scooting to Edge of Bed Contact Guard Assistance PT-Transfer Assessment Sit to and From Stand Sit to and from Stand Contact Guard Assistance, Minimal Assistance,1 Person Assistance,Use of Upper Extremities Equipment Transfer Assistive Device Gait Belt,Front Wheeled Walker Orthotic/Prosthetic Devices or Brace: No Transfers Transfer Destination Chair Transfer Technique Stepping Transfer Ability Level of Assist Minimal Assistance,Moderate Assistance,1 Person Assistance ,Use of Upper Extremities Comments Mobility Comments Increased time, HOB increased and use of foot of bed bed handle to scoot to EOB. Left leg gives way with stepping to chair d/t left knee weakness and so step-to gait performed. STS from bed to RW with cues and CGA. One posterior LOB standing and mod A to prevent fall. Otherwise, min A STS from chair to walker and back to chair. Gait Assessment Gait Gait Assistance Required: Minimum Assistance,1 Person Assist Distance (Feet) 2 Able to Maintain Weight Bearing Status Yes During Gait Assistive Devices Assistive Device Gait Belt,Front Wheeled Walker Orthotic/Prosthetic Devices or Brace: No Gait Deviations General Gait Pattern Antalgic,Decreased Stride Length,Decreased Feet Clearance,Flexed Trunk,Step-to Gait,Wide Based Gait Factors Limiting Gait Function Factors Limiting Gait Function Decreased Activity Tolerance, Decreased Strength,Difficulty Following Directions, Incoordination,Limited Range of Motion,Pain,Poor Balance, Poor Safety Awareness Comments Gait Comments Posterior lean and left knee gives way with walking PT-Balance Assessment Sitting Balance and Reactions Static Sitting Balance Ability Fair Dynamic Sitting Balance Ability Fair Standing Balance and Reactions Static Standing Balance Ability Poor Dynamic Standing Balance Ability Poor Device Used RW M6 PT-IP Treatment Start: 07/12/24 14:16 Freq: NEEDED Status: Active Protocol: Document 07/14/24 14:53 MB (Rec: 07/14/24 15:18 MB [id number]) Physical Therapy Treatment Education Education Provided Safety M7 PT-IP Assessment and Plan Start: 07/12/24 14:16 Freq: NEEDED Status: Active Protocol: Document 07/14/24 14:53 MB (Rec: 07/14/24 15:18 MB [id number]) PT Summary Assessment and Plan Potential Rehabilitation Potential Fair Status of Condition at Evaluation Evolving Summary Impairments Pain,ROM,Strength,Balance, Coordination,Sensation,Tone, Bed Mobility,Transfers,Gait, Activity Tolerance Progress Towards Goals Slow Progress due to Pain,Slow Progress due to Activity Tolerance Assessment Summary Improvements with STS transfer today. Pt's left knee gives way with stepping with RW. Easy posterior LOB and requires assistance to correct . Goals Bed Mobility Goal Independent Transfer Goal Standby Assistance,Front Wheeled Walker Gait Goal Standby Assistance,Front Wheel Walker Gait Distance 50 Other Goals improve bed mobility, transfers, ambulation using 4WW mod I Days to Meet Goals 10 Frequency of Treatment Frequency Of Treatment Once a Day Treatment Plan Physical Therapy Treatment Plan Bed Mobility Training,Transfer Training,Gait Training, Therapeutic Exercise,Balance Retraining,Post Op Education, Discharge Planning,Hot or Cold Pack,Neuromuscular Re-ed, Coordination Retraining,Manual Therapy Precautions Abdominal Surgery Precautions Log Roll,Lifting Restrictions, Gait Belt above Incisional Area Recommendations To Nursing Amount of Assist Needed 2 Person Assist Discharge Recommendations PT Discharge Recommendations SNF Rehab Transportation Needs at Discharge Wheelchair/Cabulance
--- NOTE | 2024-07-14 16:49 | PM.EVENT ---
Event Note Event Note (Rapid Response, Code, or fall): Hospital medicine signed off 07/13.
[2024-07-14] MEDS: MELATONIN 3 MG TABLET 6 MG PO (20:29)
[2024-07-14] MEDS: ATORVASTATIN 20 MG TABLET PO (20:29)
[2024-07-14] MEDS: ACETAMINOPHEN 325 MG TABLET 650 MG PO (21:48)
[2024-07-15] MEDS: AMIODARONE 200 MG TABLET 100 MG PO (08:28)
[2024-07-15] MEDS: FLUoxetine 10 MG CAPSULE PO (08:28)
[2024-07-15] MEDS: AMLODIPINE 5 MG TABLET PO (08:28)
[2024-07-15] MEDS: ASPIRIN EC 81 MG TABLET PO (08:29)
--- NOTE | 2024-07-15 08:49 | PM.DS.1 ---
History of Present Illness History of Present Illness Date Patient Seen: 07/15/24 Time Patient Seen: 08:49 Chief complaint: abd px Narrative: Lawson Ruelas is an 84-year-old man PMH CVA, aortic stenosis status post TAVR, AAA status post EVAR and paroxysmal atrial fibrillation not on anticoagulation who presents to the [facility] Emergency Department with the acute onset abdominal pain. Abdominal pain primarily of the right lower quadrant began abruptly today around noon. He has a associated nausea and emesis. At admission hemodynamically stable WBC 8, initial lactic acid 3.7 now 1.[address] abdomen pelvis demonstrates a small-bowel obstruction with a transition point in the right lower quadrant with mesenteric congestion. He was discharged from [facility] yesterday where he was there for few days for complaint of generalized weakness. His weakness improved no real underlying cause was identified. While there he did undergo a echocardiogram which demonstrates a normally functioning prosthetic aortic valve peak velocity less than 3 m/sec. The ejection fraction was 55-60 with grade 1 diastolic dysfunction. Discharge Providers Provider Date of admission: 07/11/24 20:54 Discharge Date: 07/15/24 Primary care physician: Sybil Maxwell MD Consults: 07/11/24 20:05 Consult to General Surgery Stat Comment: Consulting Provider: Zuhair Villeda Reason for consultation: sbo Has provider been notified: Yes 07/11/24 20:57 Consult to Occupational Therapy Evaluate & Treat Comment: Physician Instructions: Evaluate and treat Consult to Physical Therapy Evaluate & Treat Comment: Physician Instructions: Evaluate and Treat Discharge provider: Zuhair Villeda MD Summary Hospital Course Discharge Diagnosis: Small-bowel volvulus Hospital Course: He underwent underwent an exploratory laparotomy July 11.. Findings were notable for a small-bowel volvulus with associated small-bowel ischemia and necrosis. A small-bowel resection of 40 cm small bowel was performed with a primary anastomosis. He had an unremarkable postoperative course. He will be discharged home to a custodial facility. Follow up 2 weeks. Exam Vital Signs (past 8 hours): Oxygen Delivery Method Room Air Oxygen Flow Rate 0 Narrative Exam Narrative: General elderly man alert oriented no acute distress Abdomen soft appropriately tender to palpation. Midline dressing clean dry intact. Objective Labs 07/12/24 04:25 07/12/24 04:25 Labs: Laboratory Results - last 24 hr 07/14/24 11:18 SARS-CoV-2 (PCR) Negative [facility] Medical History (Updated 07/11/24 @ 21:20 by Zuhair Villeda MD) Atrial fibrillation Stroke Aortic stenosis Abdominal aortic aneurysm Surgical History (Updated 07/11/24 @ 21:07 by Zuhair Villeda MD) History of appendectomy H/O aortic aneurysm repair S/P TAVR (transcatheter aortic valve replacement) Social History household members: spouse Smoking Status: Never smoker alcohol intake: former Discharge Plan Discharge Plan Patient Disposition: SNF Provider Discharge Comment: -Okay to shower tomorrow -Do not submerge wounds in water until seen in follow-up. -No lifting >10 lbs x 4 weeks. Discharge orders & Medications Prescriptions: Continued multivitamin Tablet 1 tab PO DAILY atorvastatin 20 mg tablet 20 mg PO 1XD Patient Comments: Evening amiodarone 200 mg tablet 100 mg PO DAILY amlodipine 5 mg tablet 5 mg PO DAILY fluoxetine 10 mg capsule 10 mg PO DAILY aspirin 81 mg Tablet,Chewable 81 mg DAILY cholecalciferol (vitamin D3) [Vitamin D3] 125 mcg (5,000 unit) Tablet 125 mcg PO DAILY Patient Comments: Evening alpha lipoic acid 600 mg Tablet 600 mg PO DAILY Follow up/Referrals: Zuhair Villeda MD [Physician] - 2 Weeks Sybil Maxwell MD [Primary Care Provider] - Diet/Activity/Treatments Diet: Diet as Tolerated Visit Report/Discharge Packet Stand Alone Forms: Patient Portal/API, Stroke Signs & Symptoms Discharge Data Primary Care Provider: Sybil Maxwell Quality VTE Deep Vein Thrombosis/Pulmonary Embolism Present on Admission: No
--- NOTE | 2024-07-15 09:50 | PC.NURSE ---
Addendum entered by Shelby Arnold R.N. 07/15/24 10:48: Report given to Martín POWELL, all questions answered. Original Note: Discharge Note Patient discharged to [facility], transporting. Pt escorted to hospital exit by staff member at 0940. All belongings with pt including cell phone, cell phone wound nurse, clothing, shoes, and hearing aids. Information/discharge packet with . Attempted to call report for receiving SHERRY Resendiz, left message at [phone]. Awaiting call back.
--- NOTE | 2024-07-15 10:08 | CM.DPNOTE ---
DC Note Patient has been discharged this morning to [facility]. Dr Villeda completed DC Summary and signed med list early this morning which was faxed to F [phone] with [facility]. Completed and signed hospital exempt PASRR also faxed to [employer]IG[employer] MillerRR decorator consultant. Spouse arrived at [address] patient; address and admissions cell given to spouse. Denisse in admissions at [facility] updated throughout. SHERRY Dickinson to call report to P [phone]. Plan: Discharge to [facility] SNF this morning via spouse's private vehicle., time of departure approx 1000. JW
== END 2024-07-15 09:40 | DRG 329 ==
LOC: ED 20:52 → AC 20:55 → ICU 22:22
PROVIDERS: Emergency Medicine; Surgery; Admitting Provider Internal Medicine; Emergency Provider Emergency Medicine; PCP Internal Medicine; Referring Provider Emergency Medicine; Visit Provider Internal Medicine
PROC: 0DB80ZZ Excision of Small Intestine, Open Approach (ICD-10-PCS; CPT 49000; principal; 2024-07-11 22:00)
DX: K56.2 Volvulus (principal); K55.029 Acute infarction of small intestine, extent unspecified; E87.20 Acidosis, unspecified; I50.30 Unspecified diastolic (congestive) heart failure; K55.9 Vascular disorder of intestine, unspecified; R53.1 Weakness; I48.0 Paroxysmal atrial fibrillation; M17.11 Unilateral primary osteoarthritis, right knee; E78.5 Hyperlipidemia, unspecified; I11.0 Hypertensive heart disease with heart failure; Z86.79 Personal history of other diseases of the circulatory system; Z66 Do not resuscitate; Z86.73 Personal history of transient ischemic attack (TIA), and cerebral infarction without residual deficits; Z95.2 Presence of prosthetic heart valve
CPT/HCPCS: 36415; 44120; 74177; 80053; 81003; 82962; 83605; 83690; 85025; 87635; 87797; 93005; 93010; 96361; 96374; 96376; 97162; 97530; 99222; 99284; 99285; C9290; J0136; J0330; J0690; J1100; J2270; J2405; J2543; J2704; J3010; J3490; Q9967

== ENCOUNTER 2024-10-28 11:00 | Inpatient (IN) | payer MEDICARE, OTHER, SELFPAY ==
[2024-07-28 11:40] VITALS: BMI 21.5
[2024-10-20 09:46] VITALS: BMI 21.2
[2024-10-28] VITALS (11 sets, daily range): BP systolic 102–152; BP diastolic 56–88; PULSE 60–82; RESP 12–17; TEMP 36.1–36.8; O2SAT 95–100; BMI 18.8
--- NOTE | 2024-10-28 06:00 | DI.RAD.S_ITS ---
PROCEDURE: XR KNEE LT 1TO2V INDICATIONS: tka TECHNIQUE: 2 view(s) of the knee acquired. COMPARISON: [facility], CR, XR KNEE 4+ VIEWS LEFT, 06/18/2024, 14:12. FINDINGS: Bones: Patient is status post knee joint arthroplasty. Hardware components are in expected positions. Visualized bony structures are intact. Soft tissues: Overlying postoperative changes are noted. IMPRESSION: Expected post-operative appearance of a knee arthroplasty. Dictated by: Ryan Monreal M.D. on 10/29/2024 at 8:28 Approved by: Ryan Monreal M.D. on 10/29/2024 at 8:28
[2024-10-28] MEDS: ACETAMINOPHEN 325 MG TABLET 975 MG PO (12:39)
[2024-10-28] MEDS: LACTATED RINGERS 1,000 ML 42 ML IV (12:39)
[2024-10-28] MEDS: VANCOMYCIN 1,000 MG in SODIUM CHLORIDE 0.9% 250 ML 250 MG IV (13:28)
--- NOTE | 2024-10-28 14:04 | PM.PREOP ---
Pre-operative Note Interval Note History & Physical reviewed/Exam performed by Physician: Yes Changes to H&P: No
--- NOTE | 2024-10-28 14:14 | P.OP_ITS ---
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 He had severe varus of his leg and severe AVN with collapse of his proximal medial tibia. He has multiple medical problems but has undergone an extensive workup and stabilization in preparation for knee arthroplasty. Non-operative management has failed and the patient has requested total knee replacement. The risks, benefits and alternatives to surgery were discussed with the patient prior to proceeding. Risks discussed included, but were not limited to, failure to relieve pain, stiffness, infection, nerve damage, deep venous thrombosis, pulmonary embolism, stroke, coma, heart attack, permanent paralysis and , as well as the potential need for eventual revision of the prosthetic. Surgeon: Kate Cabrera Critical Power Technician: Na Hamilton Anesthesia Type: General and Peripheral nerve block Operative Notes Findings: Severe left knee osteoarthritis, significant varus deformity, significant deformity with bone loss in the proximal medial tibia Closure Type: primary Specimen(s): none sent Prosthetic devices, grafts, tissues, transplants, or devices: Cabrera and nephew sergio BCS2 to size 6 femur , size 6 tibia, 10 by 100mm tibial stem, 9 mm poly, patella 38 Estimated Blood Loss (mL): 250 Blood products transfused: none Tourniquet time (min): 135 Procedure in detail: The patient was seen in the pre-operative area, where the patient identified the left knee as the operative site and this was marked with my initials. The patient received pre-operative antibiotics, and was taken to the operating room and placed on the operative table in the supine position. After satisfactory anesthesia, a time study observer out was performed. The left leg was encircled with a tourniquet about the proximal thigh, and the leg was prepared from the toes to the tourniquet with ChloroPrep in the usual fashion and draped through sterile drapes. The leg was elevated and exsanguinated with Eschmark bandage and the tourniquet inflated to [250] mmHg pressure. A PA was used during the procedure and was essential for intraoperative retraction and safe implantation of the components. The knee was approached through an approximately 18 cm incision centered over the patella and carried into the knee through a medial parapatellar arthrotomy. A portion of the medial and lateral meniscus was resected. Soft tissue was carefully mobilized around the patella the patella was measured with a caliper. Bone was resected from the patella and the patellar height was reconstituted with up an appropriate sized patellar component. A cover was then placed on the patella. A small amount of additional medial and lateral meniscus was resected. The patient had severe deformity of his left leg with severe varus deformity. Cori pins were placed in the bone for navigation. A plan was meticulously taken and optimized in order to provide adequate balance. I did specifically release the medial side in order to allow some correction of his severe varus deformity. He had severe deformity of his proximal tibia. There was a fairly large defect in the proximal medial tibia. He had a very tight knee. I meticulously released the superficial aspect of the medial collateral ligament, removed multiple bone spurs, and stripped some of the medial soft tissues in order to allow correction of his severe deformity. His initial alignment was 23? of varus. We initially developed a plan with a more standard medial resection as I was concerned about preserving the tibial tubercle true applicable. We planned for resection of 13 mm off of the worn lateral side. I also planned a slightly larger than normal resection off of the femur. It was still very tight medially but we plan to further adjust and adjust our overall alignment plan. A plan was developed. We had plan for a more complicated tibial reconstruction including possible revision base plate with a capacity for a stem our augment or cone as needed. The Cori robotic bur was used for the distal femoral resection. He had adequate femoral bone. His femoral bone was actually pretty good and somewhat sclerotic especially in the medial femoral condyle. The tibia was meticulously navigated and a tibial resection was made resecting 13 mm off of the lateral side. It looked like an appropriate distal femoral cut and the cut was made without difficulty. The rotation was assessed and the appropriate size femoral guide was placed on the distal femur and finishing cuts were made. There was no evidence of notching. The anterior, posterior and chamfer cuts were then made. The posterior osteophytes and soft tissues were then removed. The posterior capsule was injected with part of a mixture of 60 ml 0.25% Marcaine mixed with 20 ml Exparel for post operative pain control. The remainder of this mixture was injected into the capsule and subcutaneous tissues during cement curing. The tibia was prepared by meticulously navigating the tibia. There was a significant defect medially. I initially resected 13 mm off of the lateral side. I checked the extension gap and it was clearly way too tight. The flexion gap did show an adequate gap. I felt I needed to resect additional femur and we went back to the initial plan and move the distal femoral cut 2 mm proximally. Chamfer cuts were corrected in a bur all mode. I also dropped the tibia down an additional 4 mm which looked acceptable based on the position of the tibial tubercle. I also carefully checked the medial release and used an 18 gauge needle to further release medially and resected some additional osteophytes and bone. The new plan provided acceptable balance in extension and flexion. It was still tight medially but I was able to come to full extension. The rotation was assessed. The patient was placed in extension residual medial and lateral meniscus as well as any residual bone was carefully resected. Initially 4 mm additional tibia was resected. Hemostasis was achieved especially posteriorly. Additional local was injected into the posterior capsule. The extension gap was assessed and additional releases for gap balancing were performed as necessary. The femoral component was trial was placed and the notch was finished. Trial tibial and femoral components were then placed and the knee placed through a range of motion. Range of motion was [0-130], with good stability throughout the range. The trials were then removed, and the tibia was specifically addressed. There was a gap in the posterior medial aspect of the tibia. I resected any overlying residual bone spurs along the tibia for a slight reduction tibial osteotomy. There was good support for the tibial component with a minimal gap posterior medially. The tibial base plate was pinned to the tibia and prepped for the central peg and keel. He had reasonable tibial bone but I did feel like I wanted to place a stem extension. I reamed up for a 10 x 100 stem extension. The bone was prepared with pulsatile lavage, and dried with a sponge. Multiple drill holes were placed in the small posterior medial tibial gap. I then also used some of the bone graft to graft into the drill holes. The bone was fairly sclerotic. Cement was applied and the final prosthetics placed. I meticulously cemented in the stem and there was good pressurization. The tibia was quite secure. Excess cement was removed during and after cement curing. A brief Betadine soak was performed. After confirming there was no extruded cement posteriorly, the final tibial insert was placed. The knee was copiously irrigated and the tourniquet deflated. Hemostasis was obtained with the Bovie cautery. The capsule was closed with interrupted # 1 Vicryl suture. The subcutaneous layer was closed with barbed sutures, and the skin with a running 3-0 V-Lock suture and Surgical glue. An Aquacel Ag dressing was applied and the patient was taken to recovery having tolerated the procedure well. Complications: none Post-operative Condition: stable Disposition: Acute Care Plan for aftercare: The patient will be maintained on a standard total knee replacement protocol with weight bearing as tolerated. The patient will receive aspirin and sequential compression devices for DVT prophylaxis. The patient will be discharged home when safe for the home environment.
--- NOTE | 2024-10-28 14:25 | SUR.PREOP ---
time our 1410. Block start time 1413 . Monitoring initiated and maintained throughout procedure. Oxygen and medications given per anesthesiologist instructions. Patient remained stable throughout procedure, no adverse reactions noted. Block end time 1417.
[2024-10-28] MEDS: CEFAZOLIN 2 GM/100 ML PREMIX 100 ML IV ×2 (14:48→22:58)
[2024-10-28] MEDS: TRANEXAMIC ACID 1,000 MG VIAL 2000 MG INJ ×2 (14:53→17:40)
--- NOTE | 2024-10-28 15:16 | SUR.OPER ---
Supine on padded OR bed. Pillow under head, arms secured on padded armboards <90 degree abduction. Safety belt across torso. Non-operative leg secured with tape over blanket over lower leg. Operative leg secured in DeMayo/Elijah/Nathe positioner. Foam padded brace at thigh of operative leg.
[2024-10-28] MEDS: BUPIVACAINE LIPOSOME 266 MG/20 ML VIAL INJ (15:26)
[2024-10-28] MEDS: BUPIVACAINE 0.25% (PF) 60 ML, EPINEPHrine 0.3 MG INJ (15:27)
--- NOTE | 2024-10-28 18:58 | PC.NURSE ---
Patient brought up from PACU to room 207. Patient sleeping but arousable to voice. States his name, birthday, age and date. States he had left knee surgery. VSS, arrived on 3L NC from PACU currently at 98%. CEM dressing in place with green light on, kathia wrap and ice pack in place to left knee. SCD/s on. Call light placed within reach, and bed alarm activated. Patient's and daughter at bedside, oriented to room and call light.
[2024-10-28] MEDS: DOCUSATE 100 MG CAPSULE PO (20:03)
[2024-10-28] MEDS: ATORVASTATIN 20 MG TABLET PO (20:03)
[2024-10-28] MEDS: ASPIRIN EC 81 MG TABLET PO (20:03)
[2024-10-29 01:46] VITALS: BP 137/74; PULSE 57; RESP 15; TEMP 36.2; O2SAT 98
[2024-10-29] MEDS: OXYCODONE IR 5 MG TABLET PO ×3 (02:22→20:38)
[2024-10-29] MEDS: ONDANSETRON 4 MG/2 ML INJ IV (02:42)
[2024-10-29] MEDS: CYCLOBENZAPRINE 10 MG TABLET PO (04:44)
--- NOTE | 2024-10-29 05:34 | PC.NURSE ---
Stood at edge of bed for approx 3 minutes and wanted to lay back down. 2PA gaitbelt and walker for transfer.
[2024-10-29] MEDS: IBUPROFEN 400 MG TABLET PO (05:54)
[2024-10-29 06:18] LABS: Hematocrit 29.1 % (41-53); Hemoglobin 9.6 g/dL (13.5-17.5)
[2024-10-29] MEDS: CEFAZOLIN 2 GM/100 ML PREMIX 100 ML IV (06:41)
[2024-10-29 08:00] VITALS: BP 124/78; PULSE 62; RESP 14; TEMP 36.8; O2SAT 91
--- NOTE | 2024-10-29 08:30 | PM.PNPO.1 ---
Subjective Subjective Date Patient Seen: 10/29/24 Time Patient Seen: 08:30 Interval history: Patient's pain is controlled with oral medication. Pain is localized to surgical site. Complains of cramping along surgical site. Patient declines any new numbness or tingling at the surgical extremity. Patient denies any shortness of breath, dizziness, light-headedness, vomiting, fever or chills. Patient has felt nauseous but has not yet vomited it. He has been able to ambulate with assistance. Exam Vital Signs (past 8 hours): - 10/29/24 01:46 Temperature 97.2 F L Pulse Rate 57 L Respiratory Rate 15 Blood Pressure 137/74 Pulse Oximetry 98 Oxygen Delivery Method Nasal Cannula Oxygen Flow Rate 2.5 Narrative Exam Narrative: 5/5 strength in quadriceps, hamstrings, DF, PF, EHL right. 3/5 quad and hamstring, 5/5 DF, PF, EHL, left. Sensation to light touch intact throughout BLE. Calves soft, compressible, nontender. Dressing placed intraoperatively CDI. Resp Effort & Inspection: normal respiratory effort and able to speak in complete sentences Objective Labs 10/29/24 05:47 Labs: Laboratory Results - last 24 hr 10/29/24 05:47 Hgb 9.6 L Hct 29.1 L PFSH Medical History (Updated 10/21/24 @ 09:47 by Precious Mahajan RN) RLS (restless legs syndrome) Impaired functional mobility, balance, gait, and endurance History of short term memory loss BPH (benign prostatic hyperplasia) Hx of sinus bradycardia Depression History of Mohs micrographic surgery for skin cancer BCC (basal cell carcinoma) Osteoarthritis GERD (gastroesophageal reflux disease) History of COVID-19 (~07/2024) HLD (hyperlipidemia) HTN (hypertension) Macular degeneration Neuropathy Enlarged prostate CHF (congestive heart failure) Arthritis Atrial fibrillation Stroke (~10/2023) Aortic stenosis Abdominal aortic aneurysm Surgical History (Updated 10/20/24 @ 10:41 by Precious Mahajan RN) Hx of abdominal surgery (07/11/24) Hx of hammer toe correction History of urologic surgery Hx of bilateral cataract extraction History of angioplasty History of endovascular stent graft for abdominal aortic aneurysm (AAA) (10/18/23) History of appendectomy H/O aortic aneurysm repair S/P TAVR (transcatheter aortic valve replacement) (02/2020) Social History household members: spouse Smoking Status: Former smoker alcohol intake: former Assessment & Plan Post-op Postoperative Procedures: Procedures Operation Date: 10/28/24 13:45 Actual Procedure Side Surgeon p Total Knee Arthroplasty - Robot Left Kate Akshat Cabrera MD Postoperative day: 1 Postoperative plan: routine post-op care and ambulate Postoperative plan narrative: Discharge to SNF due to multiple comorbidities which can affect postoperative recovery. Ambulate and weight bear as tolerated with assistive devices with PT. Aspirin 81 mg twice a day for 6 weeks for DVT prevention. Baseline pain relief with acetaminophen 500mg every 4 hours as needed and oxycodone 5 mg every 4 hours as needed for breakthrough pain. Patient cannot have NSADis due to TAVR. Prescribed hydroxyzine 25 mg for nausea and leg cramps. Keep dressing clean and dry. Keep dressing on until first office visit. If dressing becomes dirty or disrupted, replace with appropriate sized dressing. Follow up in clinic in 2 weeks for wound check. Contact clinic if there are any questions or concerns. Time Spent With Patient Time with patient: 15-24 minutes Quality VTE Deep Vein Thrombosis/Pulmonary Embolism Present on Admission: No
[2024-10-29] MEDS: AMIODARONE 200 MG TABLET 100 MG PO (08:51)
[2024-10-29] MEDS: MULTIVITAMIN 1 TABLET 1 TAB PO (08:51)
[2024-10-29] MEDS: hydrOXYzine HCL 25 MG TABLET PO ×3 (08:51→20:37)
[2024-10-29] MEDS: FLUoxetine 10 MG CAPSULE PO (08:51)
[2024-10-29] MEDS: ASPIRIN EC 81 MG TABLET PO ×2 (08:51→20:37)
[2024-10-29] MEDS: DOCUSATE 100 MG CAPSULE PO ×2 (08:51→20:37)
[2024-10-29] MEDS: AMLODIPINE 5 MG TABLET PO (08:51)
[2024-10-29] MEDS: CHOLECALCIFEROL (VITAMIN D3) 5,000 UNIT TABLET 5000 UNIT PO (08:52)
[2024-10-29] MEDS: SODIUM CHLORIDE 0.9% FLUSH 10 ML IV ×2 (08:53→20:37)
[2024-10-29 10:01] VITALS: PULSE 67; RESP 16; O2SAT 97
--- NOTE | 2024-10-29 10:10 | PT.IIE ---
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) Medical History (Last Updated 10/21/24 @ 09:47 by Precious Mahajan RN) Abdominal aortic aneurysm Aortic stenosis Arthritis Atrial fibrillation BCC (basal cell carcinoma) BPH (benign prostatic hyperplasia) CHF (congestive heart failure) Depression Enlarged prostate GERD (gastroesophageal reflux disease) History of COVID-19 (~07/2024) History of Mohs micrographic surgery for skin cancer History of short term memory loss HLD (hyperlipidemia) HTN (hypertension) Hx of sinus bradycardia Impaired functional mobility, balance, gait, and endurance Macular degeneration Neuropathy Osteoarthritis RLS (restless legs syndrome) Stroke (~10/2023) Physical Therapy Inpatient Evaluation/Re-Eval M1 PT/OT-IP Prior Functional Status Start: 10/29/24 12:52 Freq: NEEDED Status: Active Protocol: Document 10/29/24 10:10 AB (Rec: 10/29/24 13:08 AB [id number]) Medical Review Prior Functional Status Medical History Reviewed Yes Communication able to make needs known Mobility and Gait pt stated that he was modified independent with all mobilities and ambulation using a 4WW Activities of Daily Living and IADL's per OT note: Pt states used his LB dressing for dressing needs and that his assists to dry his back after showering. Social History Household Members spouse Living Arrangements House Number of Floors (Floors) Two Floors Number of Stairs To Enter/Railing? pt stays on the main level of the house no steps to enter Home Environment Standard Height Toilet,Walk in Shower Home Equipment Front Wheel Walker,Four Wheel Walker,Shower Seat with Backrest,Hand Held Shower, Tube Winder Hand,Sock Aid,Grab Bars Near Toilet,Grab Bars In Shower M2 PT-IP Current Condition Start: 10/29/24 12:52 Freq: NEEDED Status: Active Protocol: Document 10/29/24 10:10 AB (Rec: 10/29/24 13:08 AB [id number]) Physical Therapy Current Condition Current Condition Evaluation Date 10/29/24 Treatment Diagnosis s/p L TKA; difficulty in walking Onset Date 10/28/24 M3 PT-IP Subjective Start: 10/29/24 12:52 Freq: NEEDED Status: Active Protocol: Document 10/29/24 10:10 AB (Rec: 10/29/24 13:08 AB [id number]) Subjective Physical Therapy Visit Type Type Initial Evaluation Visit Start Time 10:10 Visit Stop Time 10:50 Number of LENS EXAMINER Visits 0 Physical Therapy Visit Comments Patient Comments agreeable to do PT Therapy Pain Assessment Pain When Pain Assessed At Rest Pain Present Pain Present Pain Reported Location Left Knee Intensity 5 Scale Used increases to 10/10 with mobility Pain Management Techniques Apply Cold,Distraction, Modification of Treatment,Re- positioning,Timing of Activity with Medications M4 PT-IP Mobility and Gait Start: 10/29/24 12:52 Freq: NEEDED Status: Active Protocol: Document 10/29/24 10:10 AB (Rec: 10/29/24 13:08 AB [id number]) PT-Bed Mobility Assessment Supine to Sit Supine to Sit Maximum Assistance,1 Person Assistance,2 Person Assistance ,Head of Bed Elevated,Bedrails PT-Transfer Assessment Sit to and From Stand Sit to and from Stand Maximum Assistance,2 Person Assistance,Use of Upper Extremities Equipment Transfer Assistive Device Gait Belt,Front Wheeled Walker Orthotic/Prosthetic Devices or Brace: No Transfers Transfer Destination Chair Transfer Technique Stand Pivot Transfer Ability Level of Assist Maximum Assistance,2 Person Assistance,Use of Upper Extremities Comments Mobility Comments pt supine in bed and agreeable to do PT. pt with uncleared speech and slight slurring but improved after a few minutes of talking. obtained PLOF and home set up. BP supine: . completed supine to sit max A x 1-2 and max cues. HOB elevated and pt used bed rail to assist. max A for sitting balance on EOB with increase retrolean and lateral trunk leaning to the L. BP checked: 127/70. completed sit to stand max A x 2 and max cues. max A x 2 for sitting balance using FWW for support. (+) L knee buckling. sit <>stand x 2 reps max A x 2. pt completed stand pivot transfer to chair using FWW max A x 2 and max cues. pt required assist to move LE and to prevent L knee from buckling. positioned pt on the chair. call light and table placed within reach. informed [facility] that pt is a mechanical lift transfers for nursing staff. Gait Assessment Comments Gait Comments unable at this time PT-Balance Assessment Sitting Balance and Reactions Static Sitting Balance Ability Poor Dynamic Sitting Balance Ability Poor Standing Balance and Reactions Static Standing Balance Ability Poor Dynamic Standing Balance Ability Poor Device Used FWW M5 PT-IP Objective Assessments Start: 10/29/24 12:52 Freq: NEEDED Status: Active Protocol: Document 10/29/24 10:10 AB (Rec: 10/29/24 13:08 AB [id number]) Orientation Orientation/Cognition Level of Alertness Alert Orientation Name Language Function Ability Hard of Hearing Safety Awareness Decreased Safety Awareness Memory Description Short Term Impaired Gross Range of Motion Lower Extremity ROM Assessment Within Functional Limits Impairments L knee flexion: ~ 40 deg L knee extension: 30 deg less to 0 Strength Lower Extremity Strength Assessment Bilaterally Impaired Comments Strength Comments LLE: 3-/5 RLE: 3+/5 Muscle Tone Muscle Tone WNL Yes M6 PT-IP Treatment Start: 10/29/24 12:52 Freq: NEEDED Status: Active Protocol: Document 10/29/24 10:10 AB (Rec: 10/29/24 13:08 AB [id number]) Physical Therapy Treatment Exercises Exercises Heel Slides Education Education Provided Precautions,Weight Bearing Status,Post-Op Packet,Safety M7 PT-IP Assessment and Plan Start: 10/29/24 12:52 Freq: NEEDED Status: Active Protocol: Document 10/29/24 10:10 AB (Rec: 10/29/24 13:08 AB [id number]) PT Summary Assessment and Plan Potential Rehabilitation Potential Fair Status of Condition at Evaluation Unstable Summary Impairments Pain,ROM,Strength,Balance, Coordination,Sensation,Tone, Cognition,Bed Mobility, Transfers,Gait,Activity Tolerance Assessment Summary pt is an 84 y/o M s/p L TKA POD 1. pt is WBAT on LLE. pt requiring max A x 2 for mobility using FWW and will need a mechanical lift for transfers with nursing staff. pt will require SNF rehab to improve overall strength and mobility. Goals Bed Mobility Goal Minimal Assistance Transfer Goal Minimal Assistance,Front Wheeled Walker Gait Goal Minimal Assistance,Front Wheel Walker Gait Distance 25 Other Goals improve bed mobility, transfers, ambulation using fWW ~ 100 ft SBA Days to Meet Goals 10 Frequency of Treatment Other frequency 1-2x/day Treatment Plan Physical Therapy Treatment Plan Bed Mobility Training,Transfer Training,Gait Training, Therapeutic Exercise,Balance Retraining,Post Op Education, Discharge Planning,Hot or Cold Pack,Neuromuscular Re-ed, Coordination Retraining,Manual Therapy Weight Bearing Status Weight Bearing Status Weight Bear as Tolerated Allowed Weight Bearing Amount (enter % LLE wBAT or #) (%) Recommendations To Nursing Amount of Assist Needed Mechanical Lift Discharge Recommendations PT Discharge Recommendations SNF Rehab Transportation Needs at Discharge Wheelchair/Cabulance
--- NOTE | 2024-10-29 11:30 | OT.IP.EVAL ---
Current Diagnoses Unilateral primary osteoarthritis, left knee (10/28/24) Surgery Performed Operation Date: 10/28/24 13:45 Actual Procedures p Total Knee Arthroplasty - Robot(Left) - Kate Cabrera MD Past Medical History (Last Updated 10/21/24 @ 09:47 by Precious Mahajan, RN) Abdominal aortic aneurysm Aortic stenosis Arthritis Atrial fibrillation BCC (basal cell carcinoma) BPH (benign prostatic hyperplasia) CHF (congestive heart failure) Depression Enlarged prostate GERD (gastroesophageal reflux disease) History of COVID-19 (~07/2024) History of Mohs micrographic surgery for skin cancer History of short term memory loss HLD (hyperlipidemia) HTN (hypertension) Hx of sinus bradycardia Impaired functional mobility, balance, gait, and endurance Macular degeneration Neuropathy Osteoarthritis RLS (restless legs syndrome) Stroke (~10/2023) Surgical History (Last Updated 10/20/24 @ 10:41 by Precious Mahajan RN) H/O aortic aneurysm repair History of angioplasty History of appendectomy History of endovascular stent graft for abdominal aortic aneurysm (AAA) (10/18/23) History of urologic surgery Hx of abdominal surgery (07/11/24) Hx of bilateral cataract extraction Hx of hammer toe correction S/P TAVR (transcatheter aortic valve replacement) (02/2020) Occupational Therapy Inpatient Evaluation/Re-Eval M1 PT/OT-IP Prior Functional Status Start: 10/29/24 11:36 Freq: NEEDED Status: Active Protocol: Document 10/29/24 11:37 [facility] (Rec: 10/29/24 12:12 [facility] [id number]) Medical Review Prior Functional Status Communication I Mobility and Gait Pt states used a walker. Activities of Daily Living and IADL's Pt states used his LB dressing for dressing needs and that his assists to dry his back after showering. Social History Household Members spouse Living Arrangements House Number of Floors (Floors) Two Floors Number of Stairs To Enter/Railing? 0 Home Environment Standard Height Toilet,Walk in Shower Home Equipment Front Wheel Walker,Four Wheel Walker,Shower Seat with Backrest,Hand Held Shower, Corner Cutter Machine Operator,Sock Aid,Grab Bars Near Toilet,Grab Bars In Shower M2 OT-IP Current Condition Start: 10/29/24 11:36 Freq: Status: Active Protocol: Document 10/29/24 11:37 [facility] (Rec: 10/29/24 12:12 [facility] [id number]) Occupational Therapy Current Condition Current Condition Evaluation Date 10/29/24 Treatment Diagnosis S/P L TKA Diagnosis Onset Date 10/28/24 M3 OT- IP Subjective and Pain Start: 10/29/24 11:36 Freq: Status: Active Protocol: Document 10/29/24 11:37 [facility] (Rec: 10/29/24 12:12 [facility] [id number]) OT- Subjective Occupational Therapy Visit Type Type Initial Evaluation Visit Start Time 11:05 Visit Stop Time 11:30 Occupational Therapy Visit Comments Patient Comments Pt agreed tp get back to bed. Patient/Caregiver Goals To go home. OT Pain Assessment Pain When Pain Assessed At Rest Pain Present Pain Present Pain Reported Location Left Knee Intensity 3 Scale Used Numeric (0 - 10) M4 OT- IP ADL's Start: 10/29/24 11:36 Freq: Status: Active Protocol: Document 10/29/24 11:37 [facility] (Rec: 10/29/24 12:12 [facility] [id number]) OT [id number] Comments OT Self-Feeding Comments NOt at meal time. OT ADL-Grooming Comments OT Grooming Comments Not performed as pt wanting to get back to bed. OT ADL-Oral Care Comments Oral Care Comments Not performed. OT ADL-Dressing General Eval Lower Body Dressing Ability Maximum Assistance Areas Needing Assistance Socks Comments OT Dressing Comments Able to practice use of squash centre manager and sock aid. OT ADL-Toileting Comments OT Toileting Comments Pt not having to go at this time. OT ADL-Bathing Comments OT Bathing Comments Sponge bath is more appropriate at this time. M5 OT- IP IADL's Start: 10/29/24 11:36 Freq: Status: Active Protocol: Document 10/29/24 11:37 [facility] (Rec: 10/29/24 12:12 [facility] [id number]) OT-Instrumental Activities of Daily Living Deficits IADL Deficits Identified Deficits Home Safety Awareness Home Safety Comments Pt is a little groggy at this time. Medication Management Medication Management Caregiver Administers Money Management Money Management Caregiver Provides Assistance Meal Preparation Meal Preparation Caregiver Provides Assist Auto Slip Cover Installer Auto Slip Cover Installer Caregiver Provides Assist M6 OT- IP Functional Cognition Start: 10/29/24 11:36 Freq: Status: Active Protocol: Document 10/29/24 11:37 [facility] (Rec: 10/29/24 12:12 [facility] [id number]) Cognitive Factors Limiting Selfcare Function Cognitive Ability Level of Alertness Alert Patient Orientation Name,Place,Situation Attention Span Ability Capable of Focused Attention, Capable of Sustained Attention Ability to Follow Commands Able to Follow One Step Commands with Increased Time, Able to Follow One Step Commands with Repetition Cognitive Comments Cognitive Assessment Comments Pt able to follow commands for ADL and mobility needs. Pt is very hard of hearing. OT- Vision and Hearing OT- Hearing Assessment OT- Hearing Assessment Hearing Impaired,Use of Hearing Aids OT- Vision Assessment Vision History Macular Degeneration M7 OT- IP Mobility and Balance Start: 10/29/24 11:36 Freq: Status: Active Protocol: Document 10/29/24 11:37 [facility] (Rec: 10/29/24 12:12 [facility] [id number]) OT- Bed Mobility Assessment Sit to Supine Sit to Supine Assist Maximum Assistance,2 Person Assistance OT-Transfer Assessment Sit to and From Stand Sit to and from Stand Maximum Assistance,2 Person Assistance Transfers Transfer Ability Maximum Assistance,2 Person Assistance Technique Transfer Destination Bed,Chair Transfer Technique Stand Step Pivot Devices Transfer Assistive Devices Gait Belt,Front Wheeled Walker Comments Mobility Comments Pt MAXAX 2 to stand and use of FWW to transfer back to bed. OT- Balance Assessment Sitting Balance and Reactions Static Sitting Balance Ability Good Dynamic Sitting Balance Ability Fair Standing Balance and Reactions Static Standing Balance Ability Poor Dynamic Standing Balance Ability Poor M8 OT- IP Objective Assessments Start: 10/29/24 11:36 Freq: Status: Active Protocol: Document 10/29/24 11:37 [facility] (Rec: 10/29/24 12:12 [facility] [id number]) OT Gross Range of Motion Upper Extremity Range of Motion Assessment Right Impaired OT Strength Upper Extremity Strength Assessment Right Impaired M9 OT- IP Assessment and Plan Start: 10/29/24 11:36 Freq: Status: Active Protocol: Document 10/29/24 11:37 [facility] (Rec: 10/29/24 12:12 [facility] [id number]) OT Summary Assessment and Plan Potential Rehabilitation Potential Good Analytic Complexity at Evaluation Low Summary OT Impairments Pain,Range of Motion,Strength, Balance,Functional Cognition, Functional Mobility,Self- Feeding,Grooming,Dressing, Toileting,Bathing,Toilet Transfers,Shower Transfers, Activity Tolerance Progress Towards Goals Slow Progress due to Pain,Slow Progress due to Activity Tolerance Assessment Summary Pt low complexity and main barriers are pain, and needing extensive two person assist for all mobility needs. Pt able to practice use of LB dressing equipment needs. Pt to go to skilled rehab when medically stable. Goals Self-Feeding Goal Independent Grooming Goal Independent Dressing Goal Independent,Long Handled Shoe Horn,Corner Cutter Machine Operator,Sock Aid Toileting Goal Independent Bathing Goal Standby Assistance Toilet Transfer Goal Independent Shower Transfer Goal Standby Assistance Days to Meet Goals 20 Frequency of Treatment Other frequency 5x/week Treatment Plan OT Treatment Plan ADL Training,Functional Mobility,Patient/Family Education,Discharge Planning Discharge Recommendations OT Discharge Recommendations SNF Rehab Transportation Needs at Discharge Wheelchair/Cabulance
[2024-10-29] MEDS: ACETAMINOPHEN 325 MG TABLET 650 MG PO ×2 (13:58→20:38)
--- NOTE | 2024-10-29 15:20 | PT.IPTN ---
Current Diagnoses Unilateral primary osteoarthritis, left knee (10/28/24) Surgery Performed Operation Date: 10/28/24 13:45 Actual Procedures p Total Knee Arthroplasty - Robot(Left) - Kate Cabrera MD Physical Therapy Treatment Note M2 PT-IP Current Condition Start: 10/29/24 12:52 Freq: NEEDED Status: Active Protocol: Document 10/29/24 14:48 SP (Rec: 10/29/24 16:30 SP [id number]) Physical Therapy Current Condition Current Condition Evaluation Date 10/29/24 Treatment Diagnosis s/p L TKA; difficulty in walking Onset Date 10/28/24 M3 PT-IP Subjective Start: 10/29/24 12:52 Freq: NEEDED Status: Active Protocol: Document 10/29/24 14:48 SP (Rec: 10/29/24 16:30 SP [id number]) Subjective Physical Therapy Visit Type Type Treatment Note Visit Start Time 14:48 Visit Stop Time 15:20 Notes PT Mayra Gilliam provided 2nd person physical assistance to patient while under instruction of FOOD AND BEVERAGE ORDER CLERK throughout tx. in room observed tx only. Number of FOOD AND BEVERAGE ORDER CLERK Visits 1 Physical Therapy Visit Comments Patient Comments agreeable to do PT Therapy Pain Assessment Location Left Knee Intensity 5 Pain Management Techniques Apply Cold,Distraction, Modification of Treatment,Re- positioning,Timing of Activity with Medications M4 PT-IP Mobility and Gait Start: 10/29/24 12:52 Freq: NEEDED Status: Active Protocol: Document 10/29/24 14:48 SP (Rec: 10/29/24 16:30 SP [id number]) PT-Bed Mobility Assessment Sit to Supine Sit to Supine Maximum Assistance,2 Person Assistance PT-Transfer Assessment Sit to and From Stand Sit to and from Stand Maximum Assistance,2 Person Assistance,Use of Upper Extremities Equipment Transfer Assistive Device Gait Belt,Front Wheeled Walker Orthotic/Prosthetic Devices or Brace: No Transfers Transfer Destination Bed Transfer Technique Stand Step Pivot Transfer Ability Level of Assist Maximum Assistance,2 Person Assistance,Use of Upper Extremities Comments Mobility Comments Pt was up in chair when arrived. Instructed ther ex: AP, marching prep gait. Scoot to EOchair CGA. STS Max A x2 at trunk with cues for BUE transition chair arms to FWW. Cues for upright posture, TKE L>RLE. Instructed marching prep gait, heavy BUE WB on FWW . Stand step pivot transfer chair>bed, max cues sequencing each LE/FWW with added support Max A x2 slow sit on bed, seated rest then STS and side step up EOB to R 2 ft before tired needed to sit, max cues upright posturing and sequencing, heavier Max A x2 due to pt slouching/softknee bending. Pt sat EOB Min A and cues for trunk righting to L due to L lateral lean. Side scoot R up EOB Max A x1 sequencing BLE and trunk slide good pt BUEs WB on bed self help. Max A x2 sit>supine and min A lateral scoot, pt facilitates bridge technique to center self in bed. Cues with Min A for upper body center bed. Pillow positioned under L shoulder for postural support. Pt had call light and all needs in reach with bed alarmed dueto fall risk. in room. Vitals: seated in chair 123/71 HR 75 SaO2 90-91% RA, cues breath. Supine end tx post mobility: BP 124/93 Gait Assessment Gait Gait Assistance Required: Maximum Assistance,2 Person Assist Distance (Feet) 3 Able to Maintain Weight Bearing Status Yes During Gait Assistive Devices Assistive Device Gait Belt,Front Wheeled Walker Gait Deviations General Gait Pattern Decreased Stride Length, Decreased Feet Clearance, Flexed Trunk,Lateral Trunk Lean,Step-to Gait,Wide Based Gait Factors Limiting Gait Function Factors Limiting Gait Function Decreased Activity Tolerance, Decreased Strength,Difficulty Following Directions,Limited Range of Motion,Pain,Poor Balance,Poor Safety Awareness Comments Gait Comments see mobility comments. Stair Climbing Assessment Comments Stair Climbing Comments No stairs needed to assess, lives on main level and no steps to enter home. PT-Balance Assessment Sitting Balance and Reactions Static Sitting Balance Ability Fair Dynamic Sitting Balance Ability Poor Standing Balance and Reactions Static Standing Balance Ability Poor Dynamic Standing Balance Ability Poor Device Used FWW Comments Other Balance Tests/Deviations/Treatment Deviated trunk to L, cues and : LUE WB on bed for trunk right midline, Min A when needed. M5 PT-IP Objective Assessments Start: 10/29/24 12:52 Freq: NEEDED Status: Active Protocol: Document 10/29/24 10:10 AB (Rec: 10/29/24 13:08 AB [id number]) Orientation Orientation/Cognition Level of Alertness Alert Orientation Name Language Function Ability Hard of Hearing Safety Awareness Decreased Safety Awareness Memory Description Short Term Impaired Gross Range of Motion Lower Extremity ROM Assessment Within Functional Limits Impairments L knee flexion: ~ 40 deg L knee extension: 30 deg less to 0 Strength Lower Extremity Strength Assessment Bilaterally Impaired Comments Strength Comments LLE: 3-/5 RLE: 3+/5 Muscle Tone Muscle Tone WNL Yes M6 PT-IP Treatment Start: 10/29/24 12:52 Freq: NEEDED Status: Active Protocol: Document 10/29/24 14:48 SP (Rec: 10/29/24 16:30 SP [id number]) Physical Therapy Treatment Exercises Exercises Ankle Pumps Education Education Provided Precautions,Weight Bearing Status,Post-Op Packet,Safety M7 PT-IP Assessment and Plan Start: 10/29/24 12:52 Freq: NEEDED Status: Active Protocol: Document 10/29/24 14:48 SP (Rec: 10/29/24 16:30 SP [id number]) PT Summary Assessment and Plan Potential Rehabilitation Potential Fair Status of Condition at Evaluation Unstable Summary Impairments Pain,ROM,Strength,Balance, Coordination,Sensation,Tone, Cognition,Bed Mobility, Transfers,Gait,Activity Tolerance Progress Towards Goals Slow Progress due to Pain,Slow Progress due to Activity Tolerance Assessment Summary Pt continues require heavy Max A x2 for STS, bed mobility, Min A as needed for sitting unsupported, tends to Lean L. Stand step pivot transfer and lateral step EOB, heavy Max A x2 with support trunk, FWW repositioning, sequencing BLE and FWW. Recommending SNF for progression strength and functional mobility. Will continue to assess progress. Goals Bed Mobility Goal Minimal Assistance Transfer Goal Minimal Assistance,Front Wheeled Walker Gait Goal Minimal Assistance,Front Wheel Walker Gait Distance 25 Other Goals improve bed mobility, transfers, ambulation using fWW ~ 100 ft SBA Days to Meet Goals 10 Frequency of Treatment Other frequency 1-2x/day Treatment Plan Physical Therapy Treatment Plan Bed Mobility Training,Transfer Training,Gait Training, Therapeutic Exercise,Balance Retraining,Post Op Education, Discharge Planning,Hot or Cold Pack,Neuromuscular Re-ed, Coordination Retraining,Manual Therapy Other Recommendations and Next Treatment bed mob, transfers, standing, Focus gait if able /c FWW. Weight Bearing Status Weight Bearing Status Weight Bear as Tolerated Allowed Weight Bearing Amount (enter % LLE wBAT or #) (%) Recommendations To Nursing Amount of Assist Needed Mechanical Lift Discharge Recommendations PT Discharge Recommendations SNF Rehab Transportation Needs at Discharge Wheelchair/Cabulance
--- NOTE | 2024-10-29 17:25 | DIET.CONS ---
Dietary Consultation Note Admission Date: 10/28/2024 11:00 Assessment: 84 y M admitted for TKA. RD screened for low MNA. Met with pt at bedside who reports low to moderate appetite since last hospitalization in jun with bowel resection. Has noted weight loss that he contributes to some decrease in PO intakes and recent hospitalization and rehab stay. Pt unable to provide diet recall, has been eating meals, but not finishing plate. Reports UBW of 150 lb (68.1 kg) Per weight history in chart- Pt 138 lb on 08/07/24, 140 lb on 10/02/24, suspect weight loss following bowel resection in Jun 2024 that pt has been unable to gain weight back to his UBW. Pt went to rehab for 3-4 wks following d/c in Jun and contacted COVID at rehab as well. There was a 8% weight loss within 1 month from 07/11/24 to 08/07/24 (severe). Ht: 180.34 cm Wt: 61.235 kg BMI: 18.8 UBW: 68.039 kg on 07/11/24 (-10% weight loss within 4 months, severe) Last BM: 10/27/24 (10/28/24 11:22) MNA: 9 Ricardo Score: 19 Diet: 10/28/24 Dinner General (Regular) Diet Diet Modifications: Food Texture: Level 7 - Regular Liquid Consistency: Level 0 - Thin Labs: Hgb 9.6 g/dL (13.5-17.5) L 10/29/24 05:47 Hct 29.1 % (41-53) L 10/29/24 05:47 Nutrition Diagnosis: Severe acute protein calorie malnutrition r/t inadequate oral intakes as evidenced by underweight BMI for age (18.8), 10% weight loss within 4 months (severe) Interventions: 1. Oral nutrition supplement BID EER: [id number] kcals (30-35 kcals/kg per BMI) 80-90 g protein (1.25-1.5 g/kg per PCM) Monitoring/Evaluations: ONS tolerance, PO intakes Electronically Signed by: Radha David 10/29/24 17:25 Clinical Dietitian [address] [address]
[2024-10-29 20:00] VITALS: BP 114/62; PULSE 72; RESP 14; TEMP 37.6; O2SAT 90
[2024-10-29] MEDS: ATORVASTATIN 20 MG TABLET PO (20:37)
[2024-10-29 23:17] VITALS: PULSE 75; TEMP 37.5; O2SAT 94
[2024-10-30] MEDS: OXYCODONE IR 5 MG TABLET PO ×2 (06:09→19:28)
[2024-10-30] MEDS: ACETAMINOPHEN 325 MG TABLET 650 MG PO ×2 (06:10→19:29)
[2024-10-30] MEDS: hydrOXYzine HCL 25 MG TABLET PO ×2 (06:10→19:28)
[2024-10-30 08:00] VITALS: BP 121/67; PULSE 65; RESP 16; TEMP 36.8; O2SAT 96
[2024-10-30 08:45] VITALS: PULSE 79; RESP 18; O2SAT 93
[2024-10-30] MEDS: MULTIVITAMIN 1 TABLET 1 TAB PO (08:52)
[2024-10-30] MEDS: DOCUSATE 100 MG CAPSULE PO ×2 (08:52→21:34)
[2024-10-30] MEDS: AMLODIPINE 5 MG TABLET PO (08:52)
[2024-10-30] MEDS: FLUoxetine 10 MG CAPSULE PO (08:55)
[2024-10-30] MEDS: CHOLECALCIFEROL (VITAMIN D3) 5,000 UNIT TABLET 5000 UNIT PO (08:55)
[2024-10-30] MEDS: ASPIRIN EC 81 MG TABLET PO ×2 (08:55→21:34)
[2024-10-30] MEDS: AMIODARONE 200 MG TABLET 100 MG PO (09:03)
[2024-10-30] MEDS: SODIUM CHLORIDE 0.9% FLUSH 10 ML IV ×2 (09:04→21:34)
--- NOTE | 2024-10-30 09:20 | PT.IPTN ---
Current Diagnoses Unilateral primary osteoarthritis, left knee (10/28/24) Surgery Performed Operation Date: 10/28/24 13:45 Actual Procedures p Total Knee Arthroplasty - Robot(Left) - Kate Cabrera MD Physical Therapy Treatment Note M2 PT-IP Current Condition Start: 10/29/24 12:52 Freq: NEEDED Status: Active Protocol: Document 10/30/24 08:20 AB (Rec: 10/30/24 09:20 AB [id number]) Physical Therapy Current Condition Current Condition Evaluation Date 10/29/24 Treatment Diagnosis s/p L TKA; difficulty in walking Onset Date 10/28/24 M3 PT-IP Subjective Start: 10/29/24 12:52 Freq: NEEDED Status: Active Protocol: Document 10/30/24 08:20 AB (Rec: 10/30/24 09:20 AB [id number]) Subjective Physical Therapy Visit Type Type Treatment Note Visit Start Time 08:54 Visit Stop Time 09:12 Notes PT Mayra Hull person of physical assistance to jose while under instruction of THEORETICAL PHYSICS TEACHER throughout session Number of THEORETICAL PHYSICS TEACHER Visits 2 Physical Therapy Visit Comments Patient Comments agreeable to do PT, rates knee pain /10 left knee start of session. Therapy Pain Assessment Pain When Pain Assessed At Rest Pain Present Pain Present Denied Pain Location Left Knee Intensity 2 M4 PT-IP Mobility and Gait Start: 10/29/24 12:52 Freq: NEEDED Status: Active Protocol: Document 10/30/24 08:20 AB (Rec: 10/30/24 09:20 AB [id number]) PT-Transfer Assessment Sit to and From Stand Sit to and from Stand Maximum Assistance,2 Person Assistance,Use of Upper Extremities Equipment Transfer Assistive Device Gait Belt,Front Wheeled Walker Orthotic/Prosthetic Devices or Brace: No Comments Mobility Comments sit to stand X3, marching in place X 2 34 steps using FWW WBAT L LE, MAX assist of 2 throughout all mobility, Leans retro on all sit to stand transfers, but less on final trial. Stair Climbing Assessment Comments Stair Climbing Comments No stairs needed to assess, lives on main level and no steps to enter home. PT-Balance Assessment Sitting Balance and Reactions Static Sitting Balance Ability Fair Dynamic Sitting Balance Ability Poor Standing Balance and Reactions Static Standing Balance Ability Poor Dynamic Standing Balance Ability Poor Device Used FWW Comments Other Balance Tests/Deviations/Treatment Repeated Verbal cues for UE : positioning, for avoiding leaning back when attempting sit to stand, also visual cues . Verbal cues to push down on FWW when upright and stepping in place. Mass assist sit to stand, standing ( due to leaning back ) and marching in place. M5 PT-IP Objective Assessments Start: 10/29/24 12:52 Freq: NEEDED Status: Active Protocol: Document 10/29/24 10:10 AB(2) (Rec: 10/29/24 13:08 AB(2) [id number]) Orientation Orientation/Cognition Level of Alertness Alert Orientation Name Language Function Ability Hard of Hearing Safety Awareness Decreased Safety Awareness Memory Description Short Term Impaired Gross Range of Motion Lower Extremity ROM Assessment Within Functional Limits Impairments L knee flexion: ~ 40 deg L knee extension: 30 deg less to 0 Strength Lower Extremity Strength Assessment Bilaterally Impaired Comments Strength Comments LLE: 3-/5 RLE: 3+/5 Muscle Tone Muscle Tone WNL Yes M6 PT-IP Treatment Start: 10/29/24 12:52 Freq: NEEDED Status: Active Protocol: Document 10/30/24 08:20 AB (Rec: 10/30/24 09:20 AB [id number]) Physical Therapy Treatment Education Education Provided Precautions,Weight Bearing Status,Post-Op Packet,Safety M7 PT-IP Assessment and Plan Start: 10/29/24 12:52 Freq: NEEDED Status: Active Protocol: Document 10/30/24 08:20 AB (Rec: 10/30/24 09:20 AB [id number]) PT Summary Assessment and Plan Potential Rehabilitation Potential Fair Status of Condition at Evaluation Unstable Summary Impairments Pain,ROM,Strength,Balance, Coordination,Sensation,Tone, Cognition,Bed Mobility, Transfers,Gait,Activity Tolerance Progress Towards Goals Slow Progress due to Pain,Slow Progress due to Activity Tolerance Assessment Summary Patient continues to require MAX of 2 for sit to stand with FWW, Max of [address], leans back during transfers and in standing, verbal and visual cues repeated and improved in final trial, but not WNL. LAQ X 10 left LE, unable to fully extend knee actively. Goals Bed Mobility Goal Minimal Assistance Transfer Goal Minimal Assistance,Front Wheeled Walker Gait Goal Minimal Assistance,Front Wheel Walker Gait Distance 25 Other Goals improve bed mobility, transfers, ambulation using fWW ~ 100 ft SBA Days to Meet Goals 9 Frequency of Treatment Other frequency 1-2x/day Treatment Plan Physical Therapy Treatment Plan Bed Mobility Training,Transfer Training,Gait Training, Therapeutic Exercise,Balance Retraining,Post Op Education, Discharge Planning,Hot or Cold Pack,Neuromuscular Re-ed, Coordination Retraining,Manual Therapy Other Recommendations and Next Treatment bed mob, transfers, standing, Focus gait if able /c FWW. Weight Bearing Status Weight Bearing Status Weight Bear as Tolerated Allowed Weight Bearing Amount (enter % LLE wBAT or #) (%) Recommendations To Nursing Amount of Assist Needed 2 Person Assist,Mechanical Lift Discharge Recommendations PT Discharge Recommendations SNF Rehab Transportation Needs at Discharge Wheelchair/Cabulance
[2024-10-30 09:50] VITALS: O2SAT 93
--- NOTE | 2024-10-30 11:53 | OT.IP.TRT ---
Current Diagnoses Unilateral primary osteoarthritis, left knee (10/28/24) Surgery Performed Operation Date: 10/28/24 13:45 Actual Procedures p Total Knee Arthroplasty - Robot(Left) - Kate Cabrera MD Occupational Therapy Treatment Note M2 OT-IP Current Condition Start: 10/29/24 11:36 Freq: Status: Active Protocol: Document 10/29/24 11:37 [facility] (Rec: 10/29/24 12:12 [facility] [id number]) Occupational Therapy Current Condition Current Condition Evaluation Date 10/29/24 Treatment Diagnosis S/P L TKA Diagnosis Onset Date 10/28/24 M3 OT- IP Subjective and Pain Start: 10/29/24 11:36 Freq: Status: Active Protocol: Document 10/30/24 12:37 [facility] (Rec: 10/30/24 12:44 [facility] [id number]) OT- Subjective Occupational Therapy Visit Type Type Treatment Note Visit Start Time 11:30 Visit Stop Time 11:53 Occupational Therapy Visit Comments Patient Comments Pt agreed to do oral care need and then realizing pt having to be changed as soiled. Patient/Caregiver Goals TO get better. OT Pain Assessment Pain When Pain Assessed At Rest Pain Present Pain Present Pain Reported Location Left Knee Pain Behaviors Facial Grimacing,Holding Area M4 OT- IP ADL's Start: 10/29/24 11:36 Freq: Status: Active Protocol: Document 10/30/24 12:37 [facility] (Rec: 10/30/24 12:44 [facility] [id number]) OT [id number]-[id number] Comments OT Self-Feeding Comments Pt states having difficulty to hold the utensils- requested large handled light weight utensils from the kitchen and to also have nursing aid check on him during lunch. Per aid pt was very sleepy this morning during breakfast. OT ADL-Grooming General Evaluation Areas Needing Assistance Retrieving/Set-up of Grooming Items Comments OT Grooming Comments Able to do while seated in the recliner. OT ADL-Oral Care General Eval Oral Care Ability Standby Assistance Comments Oral Care Comments vc for completeness OT ADL-Dressing General Eval Lower Body Dressing Ability Total Assistance Areas Needing Assistance Underpants/Brief,Socks OT ADL-Toileting General Evaluation Toileting Ability Total Assistance Areas Needing Assistance Manage Clothing,Perform Perineal Hygiene Comments OT Toileting Comments MAX AX 2 to stand to the FWW, one person to keep pt standing with MAX AX 1 to the FWW while aid assist with all hygiene needs. Pt tends to lean on his heel and needing assist and cues to lean forwards. OT ADL-Bathing Comments OT Bathing Comments Sponge bath more appropriate or use of rolling shower chair . M5 OT- IP IADL's Start: 10/29/24 11:36 Freq: Status: Active Protocol: Document 10/29/24 11:37 [facility] (Rec: 10/29/24 12:12 [facility] [id number]) OT-Instrumental Activities of Daily Living Deficits IADL Deficits Identified Deficits Home Safety Awareness Home Safety Comments Pt is a little groggy at this time. Medication Management Medication Management Caregiver Administers Money Management Money Management Caregiver Provides Assistance Meal Preparation Meal Preparation Caregiver Provides Assist Dike Supervisor Dike Supervisor Caregiver Provides Assist M6 OT- IP Functional Cognition Start: 10/29/24 11:36 Freq: Status: Active Protocol: Document 10/30/24 12:37 [facility] (Rec: 10/30/24 12:44 [facility] [id number]) Cognitive Factors Limiting Selfcare Function Cognitive Ability Level of Alertness Alert,Confusional State Cognitive Comments Cognitive Assessment Comments Pt is very pleasant but not aware that he was soiled and needing to be changed. Pt needing more step by step cues to follow today. M7 OT- IP Mobility and Balance Start: 10/29/24 11:36 Freq: Status: Active Protocol: Document 10/30/24 12:37 [facility] (Rec: 10/30/24 12:44 [facility] [id number]) OT-Transfer Assessment Sit to and From Stand Sit to and from Stand Maximum Assistance,2 Person Assistance Devices Transfer Assistive Devices Gait Belt,Front Wheeled Walker OT- Balance Assessment Sitting Balance and Reactions Static Sitting Balance Ability Good Dynamic Sitting Balance Ability Fair Standing Balance and Reactions Static Standing Balance Ability Poor Dynamic Standing Balance Ability Poor M8 OT- IP Objective Assessments Start: 10/29/24 11:36 Freq: Status: Active Protocol: Document 10/29/24 11:37 [facility] (Rec: 10/29/24 12:12 [facility] [id number]) OT Gross Range of Motion Upper Extremity Range of Motion Assessment Right Impaired OT Strength Upper Extremity Strength Assessment Right Impaired M9 OT- IP Assessment and Plan Start: 10/29/24 11:36 Freq: Status: Active Protocol: Document 10/30/24 12:37 [facility] (Rec: 10/30/24 12:44 [facility] [id number]) OT Summary Assessment and Plan Potential Rehabilitation Potential Good Analytic Complexity at Evaluation Low Summary OT Impairments Pain,Range of Motion,Strength, Balance,Functional Cognition, Functional Mobility,Self- Feeding,Grooming,Dressing, Toileting,Bathing,Toilet Transfers,Shower Transfers, Activity Tolerance Progress Towards Goals Slow Progress due to Pain,Slow Progress due to Activity Tolerance Assessment Summary Pt able to tolerate standing with FWW with MAX AX 2 in order to do brief and hygiene needs.Pt looking to go to skilled rehab when medically stable. Goals Self-Feeding Goal Independent Grooming Goal Independent Dressing Goal Independent,Long Handled Shoe Horn,Neurodiagnostic Technician,Sock Aid Toileting Goal Independent Bathing Goal Standby Assistance Toilet Transfer Goal Independent Shower Transfer Goal Standby Assistance Days to Meet Goals 40 Frequency of Treatment Other frequency 5x/week Treatment Plan OT Treatment Plan ADL Training,Functional Mobility,Patient/Family Education,Discharge Planning Discharge Recommendations OT Discharge Recommendations SNF Rehab Transportation Needs at Discharge Wheelchair/Cabulance
--- NOTE | 2024-10-30 14:36 | PM.PNPO.1 ---
Subjective Subjective Interval history: Lawson is a pleasant 84 year old male who is POD#2 s/p complex primary left total knee arthroplasty by Dr. Cabrera. This afternoon patient reports he is doing well, he states he is still having mild-moderate pain at rest but it increases to severe w/ activity. He reports spasms/cramping pain in his left leg. He has been working with PT. He lives at home w/ his but states she is not able to provide much physical support to him in the post-operative period so he plans to d/c to SNF. He is urinating well w/o issue, complains of still not having a BM since surgery. No new questions or concerns for me today. Denies any numbness or tingling of left lower extremity. Denies hx of blood clot. Exam Vital Signs (past 8 hours): - 10/30/24 08:00 10/30/24 08:00 10/30/24 08:45 Temperature 98.2 F Pulse Rate 65 79 Respiratory Rate 16 18 Blood Pressure 121/67 Pulse Oximetry 96 93 Oxygen Delivery Method Room Air Nasal Cannula Oxygen Flow Rate 0 1.5 Fraction of Inspired Oxygen 26 10/30/24 09:50 Temperature Pulse Rate Respiratory Rate Blood Pressure Pulse Oximetry 93 Oxygen Delivery Method Oxygen Flow Rate 0 Fraction of Inspired Oxygen Fraction of Inspired Oxygen 26 SaO2/FiO2 Ratio 357 Oxygen Delivery Method Nasal Cannula Oxygen Flow Rate 0 Narrative Exam Narrative: Patient sitting comfortably in bedside chair during our interview today. No acute distress. AOx3. Grossly normal alignment of the LLE with moderate swelling to the left knee. 5/5 strength with DF, PF, EHL. 3/5 knee extension. Very limited L knee ROM d/t pain. Gross sensation intact throughout bilateral lower extremities. Calves soft and non-tender bilaterally. Brisk capillary refill. Post-surgical Picco dressing clean, dry and intact over the left knee without drainage. Resp Effort & Inspection: normal respiratory effort and able to speak in complete sentences Objective Labs 10/29/24 05:47 [facility] Medical History (Updated 10/21/24 @ 09:47 by Precious Mahajan RN) RLS (restless legs syndrome) Impaired functional mobility, balance, gait, and endurance History of short term memory loss BPH (benign prostatic hyperplasia) Hx of sinus bradycardia Depression History of Mohs micrographic surgery for skin cancer BCC (basal cell carcinoma) Osteoarthritis GERD (gastroesophageal reflux disease) History of COVID-19 (~07/2024) HLD (hyperlipidemia) HTN (hypertension) Macular degeneration Neuropathy Enlarged prostate CHF (congestive heart failure) Arthritis Atrial fibrillation Stroke (~10/2023) Aortic stenosis Abdominal aortic aneurysm Surgical History (Updated 10/20/24 @ 10:41 by Precious Mahajan RN) Hx of abdominal surgery (07/11/24) Hx of hammer toe correction History of urologic surgery Hx of bilateral cataract extraction History of angioplasty History of endovascular stent graft for abdominal aortic aneurysm (AAA) (10/18/23) History of appendectomy H/O aortic aneurysm repair S/P TAVR (transcatheter aortic valve replacement) (02/2020) Social History household members: spouse Smoking Status: Former smoker alcohol intake: former Assessment & Plan Post-op Postoperative Procedures: Procedures Operation Date: 10/28/24 13:45 Actual Procedure Side Surgeon p Total Knee Arthroplasty - Robot Left Kate Cabrera MD Postoperative plan narrative: 1) Plan to discharge to SNF tomorrow. 2) Continue multimodal pain management with ice to the knee for additional pain control. 3) ASA b.i.d. for DVT prophylaxis. SCDs to be worn while in bed. 4) Continue to work with physical therapy to work on range of motion and mobility. WBAT. 5) Keep dressing intact, clean, dry until 2 week postop appointment. No soaking the incision site in pools or tubs. No topical ointments or creams to the incision site. 6) Follow up at [facility] orthopedics in 2 weeks for a postop appointment and wound check. 7) We discussed he has Colace and MiraLax for constipation. According to the MAR he has only received Colace, may try Miralax. He also has Visatril ordered for PRN muscle spasms. All patient's questions were answered, he demonstrates understanding and is in agreement with the plan. Call our office if any questions or concerns arise. Quality VTE Deep Vein Thrombosis/Pulmonary Embolism Present on Admission: No
--- NOTE | 2024-10-30 15:29 | PC.NURSE ---
PATIENT TRANSFER TO BSC AND BACK TO BED, PATIENT IS VERY UNSAFE WITH WALKER, AND CONTINUES TO LEAN BACK WHEN ATTEMPTING TO STAND. DID URINATE AND HAD SM. BM.
--- NOTE | 2024-10-30 15:32 | CM.DANOTE ---
Initial DCP Assessment Visit Note Reviewed EMR and team rounds for status updates. Met with pt/dtr/spouse at bedside to introduce self and role, pt was found to be somnolent, but easily arousable, he defers to his spouse for hx and coordination needs. Pt lives modified independently with a walker with his spouse in their own home in [place]. SNF rehab is plan, sent referral to [facility] in [place], per their request. Pending acceptance. will transport him to the facility at d/c. Payor: Medicare Attending: Dr. Cabrera Pt is a 84 year-old M post-op day 2 from a L-total knee arthroplasty surgery. He did well postoperatively, was initially a mechanical life, but has been working with therapies. Pt has a hx of worsening swelling and pain in his L-knee, making it difficult for him to walk or do his ADL's without assistance. He's tried numerous conservative efforts at pain reduction, including anti-inflammatory meds, exercies, and injections with no lasting relief. Plan is to d/c to [facility] once we receive the acceptance, he is eligible for SNF as of 10/31/24. Discharge Planning/Care Management CM Discharge Assessment Start: 10/30/24 15:19 Freq: Status: Active Protocol: Document 10/30/24 15:19 [facility] (Rec: 10/30/24 15:31 [facility] [id number]) Discharge Planning Assessment Assigned Heat Treater Apprentice KIANNA John Advance Directives? Yes: POLST Advance Directives on File No History Provided By Patient,Family Member, Significant Other,Medical Record Expected Length of Stay 3 Prior Living Arrangements House Comment he only stays on the lower level. no steps to get into his house Household Members spouse Type of transporation used prior to Relies on Others admit Independent with ADL's No: modified independent with assistance Is patient alert and oriented? Yes: Very somnolent Needs Assistance With Meal Prep,Home Chores / Shopping Caregiver for Another No DME Already Rented / Owned Bath Bench,Elevated Toilet Seat,FWW / Walker Barriers to Discharge No Discharge Plan Care Home Facility Transportation Arrangement will transport him to the facility, it's in [place]. Referrals Initiated Care Home If patient plan is SNF: Has PASSR been No completed? Inpatient Status as of 10/28/24 Medicare Choice List Provided Yes Has Agency SNF been contacted Yes Comment Clinicals faxed 10/30/24 Whiteboard Updated in Patient Room with Yes name and ext. # of Heat Treater Apprentice Review Status In Process Please Provide Date Initial DC 10/30/24 Assessment Was Performed Pre-Anesthesia Assessment Start: 10/20/24 09:45 Freq: Status: Complete Protocol: Document 10/20/24 09:46 [facility] (Rec: 10/20/24 10:49 [facility] [id number]) Pre-Anesthesia Assessment PAC Comment Phone assessment. Julissa/LANE w/ surgeon's office reviewed patient's medical history with Dr. Rosales prior to surgery. Outside vascular & cardiac records in surgery folder. Cardiac pre-op clearance scanned and in surgery folder. 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 07/11/24 Patient Information Reviewed Via Phone Assessment Assessment Completed With Patient Diagnostic Results BMP/CMP,CBC,EKG Primary Care Provider Claudette Herbert Seen Specialist in Last 12 Months Yes Specialist Seen Television Anchor,Emergency,General surgeon,Orthopedist,Other Comment Vascular, Neurology for neuropathy only Primary Language Nepalese Preferred Language Nepalese Floor Representative Required No Height 177.8 cm Weight 67.132 kg Body Mass Index (BMI) 21.2 Hearing Ability Hearing Impaired,Use of Hearing Aid Visual Assist None Dentition Type Teeth, Natural Present,Teeth, Missing Barriers to Learning Auditory Hx Anesthesia Reactions No Hx Family Anesthesia Reaction No Hx Malignant Hyperthermia No Hx Blood Transfusions No Hx Blood Transfusion Reaction No Anesthesia Review Requested No Electrical Solderer No alcohol intake former Smoking Status Former smoker how long ago did patient quit smoking Quit in his 20's Substance Use Type [#R] does not use Pain Present Pain Reported Musculoskeletal Symptoms Abnormal Gait,Back Pain, Difficulty Walking,Joint Pain History of Falling (Recent or History of Yes ) Patient is completely paralyzed or No completely immobile Prosthesis or Orthotic Device Front Wheel Walker Mental Status Oriented to own ability Is patient on oxygen? No Does patient have ZAMARRIPA/SOB No Hx Sleep Apnea No CPAP/BIPAP use not prescribed Currently Taking a Beta Jose No Can You Climb a Flight of Stairs Without Yes SOB Hx Chest Pain No Hx SOB No Hx Syncope or Dizziness No Anti-Coagulant Therapy Yes: ASA-advised to hold 7 days per Surgeon office Has a Television Anchor Yes: Pre-op visit 08/28/[address] Horan @ [facility] Hx Pacemaker/ICD No Pacemaker Rep Required? No Cardiac Clearance Received Yes Comment Cardiac records scanned and in surgery folder Diet Type At Home Regular Dysphagia No Gastrointestinal Symptoms Constipation,Reflux Urinary Catheter Present No Hx Urinary Self Catheterization No Diabetes No HgbA1C 5.7 Date 09/30/24 Presence of External or Internal Medical Yes: TAVR, cathleen eye IOLs Devices Received a COVID vaccine? Yes Comment No covid symptoms x 8 weeks Marital Status Lives With spouse Current Living Arrangements House Number of Floors (Floors) Two Floors Support System Spouse Does the Patient Have Assistance After No: states it would be Surgery difficult to care for pt at home Patient Discharge Plan Description Care Home Facility/Rehab Comment Pt & would pt to DC to [facility] Feels Safe in Current Environment Yes Been Physically Hurt or Threatened By a No Person in Current Environment Do you have thoughts of harming yourself None or others? Are you currently considering suicide? No Do you have a plan to hurt yourself or No Plan others? Do You Have Any Spiritual Beliefs That No May Affect Your HC Choices? Do You Have Any Cultural Practices That No May Affect Your HC Choices? Comment [facility] Who Can We Speak to About Patient's Care Family, friends Identifying Code for Release of Patient Declines to issue Information Health Care Proxy/Next of Kin Breana () Health Care Proxy Emergency Contact Name Janet (daughter) Emergency Contact Advance Directives? Yes: POLST Advance Directives on File No Requested Patient Bring Advanced Yes Directives DOS Power of Warehouse Stock Clerk No PAC Instructions Durable medical equipment, Medications to take/avoid, Nasal antibiotic,No ETOH/ petroleum product on skin DOS, NPO,Pre-surgical wash,Sensory aids,Sturdy shoes/comfortable clothes,Do not bring valuables and remove jewelry
[2024-10-30 20:00] VITALS: BP 133/70; PULSE 78; RESP 24; TEMP 38.3; O2SAT 83
[2024-10-30 20:05] VITALS: O2SAT 94
[2024-10-30 21:00] VITALS: BP 133/73; PULSE 83; RESP 20; TEMP 38.6; O2SAT 93
[2024-10-30] MEDS: ATORVASTATIN 20 MG TABLET PO (21:34)
[2024-10-31] VITALS (9 sets, daily range): BP systolic 112–138; BP diastolic 60–73; PULSE 65–74; RESP 14–20; TEMP 36.7–37.4; O2SAT 90–97
[2024-10-31] MEDS: ACETAMINOPHEN 325 MG TABLET 650 MG PO ×2 (02:07→20:04)
[2024-10-31] MEDS: OXYCODONE IR 5 MG TABLET PO ×3 (02:07→20:04)
[2024-10-31] MEDS: hydrOXYzine HCL 25 MG TABLET PO (02:08)
--- NOTE | 2024-10-31 06:51 | PC.NURSE ---
1928: Tylenol, Vistaril, and Oxycodone 5 mg given for c/o left knee pain. 1999: Patient's Temp 101, RR 24, POX 83% on RA. Lungs CTA, patient denies any SOB. O2 2L NC applied, POX 94% Patient encouraged to do IS, able to do 10 breaths to 2500. Cont POX applied. 2119: Temp 101.4, POX remains 93-94% on O2 2L. Dr Mcgregor notified of above. Rt eval and treat ordered. IS encouraged as directed. 0600: Patients POX 93-95% throughout rest of night. Temp resolved.
--- NOTE | 2024-10-31 08:01 | PM.DS.1 ---
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 He had severe varus of his leg and severe AVN with collapse of his proximal medial tibia. He has multiple medical problems but has undergone an extensive workup and stabilization in preparation for knee arthroplasty. Non-operative management has failed and the patient has requested total knee replacement. The risks, benefits and alternatives to surgery were discussed with the patient prior to proceeding. Risks discussed included, but were not limited to, failure to relieve pain, stiffness, infection, nerve damage, deep venous thrombosis, pulmonary embolism, stroke, coma, heart attack, permanent paralysis and , as well as the potential need for eventual revision of the prosthetic. Surgeon: Kate Cabrera Cable Ferryboat Operator: Na Hamilton Anesthesia Type: General and Peripheral nerve block Operative Notes Findings: Severe left knee osteoarthritis, significant varus deformity, significant deformity with bone loss in the proximal medial tibia Closure Type: primary Specimen(s): none sent Prosthetic devices, grafts, tissues, transplants, or devices: Cabrera and nephew alexney BCS2 to size 6 femur , size 6 tibia, 10 by 100mm tibial stem, 9 mm poly, patella 38 Estimated Blood Loss (mL): 250 Blood products transfused: none Tourniquet time (min): 135 Discharge Providers Provider Date of admission: 10/28/24 11:00 Discharge Date: 10/31/24 Primary care physician: GELA Jarvis Consults: 10/28/24 06:00 Consult to Anesthesiology Routine Comment: Consulting Provider: Anesthesiologist Reason for consultation: Regional block for post operative pain control Consult to Discharge Planning Routine Comment: byron Bello @ discharge 10/28/24 18:53 Consult to Discharge Planning Routine Comment: Consult to Occupational Therapy Evaluate & Treat Comment: Physician Instructions: Evaluate and treat Consult to Physical Therapy Evaluate & Treat Comment: Physician Instructions: postop TKA protocol Discharge provider: Julissa Lee PA-C Summary Hospital Course Discharge Diagnosis: 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 On the morning of POD# 3, he was feeling well and wanted to go to rehab. Per CM notes, he is eligible for discharge today, still waiting on acceptance at preferred facility. Per RN and chart, he was febrile to 101.4 overnight and needed supplemental O2 via NC d/t O2 sat down to 83%. Other vital signs were unremarkable. He is afebrile this morning. His pain is well controlled with oral medication and he is eating an voiding without difficulty. Exam Vital Signs (past 8 hours): - 10/31/24 01:55 10/31/24 04:00 Temperature 98.6 F Pulse Rate 68 Respiratory Rate 16 Blood Pressure 112/60 Pulse Oximetry 95 95 Oxygen Delivery Method Nasal Cannula Oxygen Flow Rate 2 2 Fraction of Inspired Oxygen 28 Fraction of Inspired Oxygen 28 SaO2/FiO2 Ratio 339 Oxygen Delivery Method Nasal Cannula Oxygen Flow Rate 2 Narrative Exam Narrative: 3/5 strength in hip flexors, quadriceps; 4/5 hamstrings; 5/5 PF, DF, EHL on left. Sensation to light touch intact throughout LLE. Calf soft and compressible. JEN over CEM CDI; CEM functioning. Objective Labs 10/29/24 05:47 [facility] Medical History (Updated 10/30/24 @ 15:25 by Kate Cabrera MD) RLS (restless legs syndrome) Impaired functional mobility, balance, gait, and endurance History of short term memory loss BPH (benign prostatic hyperplasia) Hx of sinus bradycardia Depression History of Mohs micrographic surgery for skin cancer BCC (basal cell carcinoma) Osteoarthritis GERD (gastroesophageal reflux disease) History of COVID-19 (~07/2024) HLD (hyperlipidemia) HTN (hypertension) Macular degeneration Neuropathy Enlarged prostate CHF (congestive heart failure) Arthritis Atrial fibrillation Stroke (~10/2023) Aortic stenosis Abdominal aortic aneurysm Surgical History (Updated 10/31/24 @ 08:14 by Julissa Lee PA-C) Hx of abdominal surgery (07/11/24) Hx of hammer toe correction History of urologic surgery Hx of bilateral cataract extraction History of angioplasty History of endovascular stent graft for abdominal aortic aneurysm (AAA) (10/18/23) History of appendectomy H/O aortic aneurysm repair 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 This demonstrated bibasilar atelectasis. Encourage IS use. I'm not sure exactly where things stand with disposition, but will complete discharge summary, med list, and rxs in the event that 1) the chest xray is normal and 2) the pt is accepted to a SNF today. ASA 81mg BID x 6 weeks for VTE prophylaxis. WBAT on operative leg. RT to evaluate for possible need for O2 at discharge. Discharge Plan Discharge Plan Patient Disposition: SNF Other facility: [facility] Discharge orders & Medications Prescriptions: New aspirin 81 mg Tablet,Delayed Release (Dr/Ec) 81 mg PO BID Qty: 90 0RF oxycodone 5 mg Tablet 5 mg PO Q4-6H PRN (Reason: Pain, Moderate (4-6)) Qty: 30 0RF ondansetron 4 mg Tablet,Disintegrating 4 mg PO Q4HR PRN (Reason: Nausea And Vomiting) Qty: 20 0RF polyethylene glycol 3350 17 gram Powder In Packet 17 g PO DAILY PRN (Reason: Constipation) Qty: 30 0RF Continued acetaminophen 500 mg Tablet 500 mg PO DAILY PRN (Reason: Pain) multivitamin Tablet 1 tab PO DAILY atorvastatin 20 mg tablet 20 mg PO BEDTIME Patient Comments: Evening amiodarone 200 mg tablet 100 mg PO DAILY amlodipine 5 mg tablet 5 mg PO DAILY fluoxetine 10 mg capsule 10 mg PO DAILY cholecalciferol (vitamin D3) [Vitamin D3] 125 mcg (5,000 unit) Tablet 125 mcg PO DAILY Patient Comments: Evening alpha lipoic acid 600 mg Tablet 600 mg PO BEDTIME Discontinued aspirin 81 mg Tablet,Chewable 81 mg DAILY Follow up/Referrals: Claudette Herbert ARNP [Primary Care Provider] - Kate Cabrera MD [Physician] - 11/07/24 1:00 pm (Follow up w/ Na Hamilton PA-C, at [facility] office in [place].) Diet/Activity/Treatments Diet: Diet as Tolerated Activity: Ambulate multiple times a day. Use a cane or walker as needed. Full weight on leg. Cold/Heat Therapy: Use ice multiple times a day. Skin/Wound/Dressing Care Report to your healthcare provider any signs of infection, such as:: chills, fever, night sweats, unusual drainage and unusual redness Dressing: May remove JEN wrap and shower. Leave CEM dressing in place until follow up in office. Batteries will in 5-7 days, at which point you can cut off battery pack and dispose of it. No bathing or otherwise soaking incision. Call the office if the dressing becomes saturated inside. [facility] Reason for rehabilitation: Post-operative therapy Rehab type: Physical therapy and Occupational therapy Visit Report/Discharge Packet Instructions: DI for Knee Replacement, DI for Prescription Opioid Use Stand Alone Forms: Patient Portal/API, Surgery Discharge Discharge Data Primary Care Provider: Claudette Herbert VTE Deep Vein Thrombosis/Pulmonary Embolism Present on Admission: No
--- NOTE | 2024-10-31 08:07 | DI.RAD.S_ITS ---
PROCEDURE: XR CHEST 1V INDICATIONS: decreased O2 sat, fever overnight TECHNIQUE: One view of the chest was acquired. COMPARISON: None. FINDINGS: Surgical changes and devices: Wireless pacemaker. Aortic valvuloplasty. Probable abdominal aortic endovascular stent material partially seen. Lungs and pleura: Slight volume loss and strand-like, patchy opacity in retrocardiac region of the left lung base. Probable right base atelectasis. No significant effusion or pneumothorax. Mediastinum: Mediastinal contours appear normal. Heart size is normal. Bones and chest wall: No suspicious bony lesions. Overlying soft tissues appear unremarkable. IMPRESSION: Bibasilar opacities, left worse than right, left with associated volume loss. Probably bibasilar atelectasis. Aspiration or infection cannot be excluded. Dictated by: Anisha Jimenez M.D. on 10/31/2024 at 8:56 Approved by: Anisha Jimenez M.D. on 10/31/2024 at 8:58
[2024-10-31] MEDS: AMIODARONE 200 MG TABLET 100 MG PO (08:36)
[2024-10-31] MEDS: ASPIRIN EC 81 MG TABLET PO ×2 (08:36→20:03)
[2024-10-31] MEDS: AMLODIPINE 5 MG TABLET PO (08:37)
[2024-10-31] MEDS: MULTIVITAMIN 1 TABLET 1 TAB PO (08:37)
[2024-10-31] MEDS: CHOLECALCIFEROL (VITAMIN D3) 5,000 UNIT TABLET 5000 UNIT PO (08:37)
[2024-10-31] MEDS: DOCUSATE 100 MG CAPSULE PO ×2 (08:38→20:03)
[2024-10-31] MEDS: FLUoxetine 10 MG CAPSULE PO (08:38)
[2024-10-31] MEDS: SODIUM CHLORIDE 0.9% FLUSH 10 ML IV ×2 (08:41→20:03)
--- NOTE | 2024-10-31 08:49 | DIET.PN1 ---
Dietary Progress Note Assessment: Pt with 75-100% PO intakes, DFM reviewed for meal composition. ONS has been adjusted to supplemental smoothie per pt preferences by unit host. Pt doing one of those for lunch past 2 days and extra egg and santana servings at breakfast and yogurt as additional side at dinner. Will continue with caloric-protein supplemental drink per preference and extra food protein serving for meet EER. Ht: 180.34 cm Wt: 61.235 kg BMI: 18.8 UBW: Last BM: 10/31/24 (10/31/24 02:00) MNA: 9 Ricardo Score: 17 Diet: 10/28/24 Dinner General (Regular) Diet Diet Modifications: Food Texture: Level 7 - Regular Liquid Consistency: Level 0 - Thin Nutrition Percent Meal Consumed 100% 10/30/24 18:00 Percent Meal Consumed 100% 10/30/24 12:13 Percent Meal Consumed 75% 10/29/24 17:51 Labs: Hgb 9.6 g/dL (13.5-17.5) L 10/29/24 05:47 Hct 29.1 % (41-53) L 10/29/24 05:47 Electronically Signed by: Radha David 10/31/24 08:49 Clinical Dietitian [address] [address]
--- NOTE | 2024-10-31 09:45 | PT.IPTN ---
Current Diagnoses Unilateral primary osteoarthritis, left knee (10/28/24) Presence of unspecified artificial knee joint (10/28/24) Surgery Performed Operation Date: 10/28/24 13:45 Actual Procedures p Total Knee Arthroplasty - Robot(Left) - Kate Cabrera MD Physical Therapy Treatment Note M2 PT-IP Current Condition Start: 10/29/24 12:52 Freq: NEEDED Status: Active Protocol: Document 10/30/24 08:20 AB (Rec: 10/30/24 09:20 AB [id number]) Physical Therapy Current Condition Current Condition Evaluation Date 10/29/24 Treatment Diagnosis s/p L TKA; difficulty in walking Onset Date 10/28/24 M3 PT-IP Subjective Start: 10/29/24 12:52 Freq: NEEDED Status: Active Protocol: Document 10/31/24 09:45 AB(2) (Rec: 10/31/24 12:41 AB(2) [id number]) Subjective Physical Therapy Visit Type Type Treatment Note Visit Start Time 09:45 Visit Stop Time 10:15 Number of CHEMICAL ENGINEERING TECHNICIAN Visits 0 Physical Therapy Visit Comments Patient Comments agreeable to do PT Therapy Pain Assessment Pain When Pain Assessed At Rest Pain Present Pain Present Pain Reported Location Left Knee Intensity 5 Scale Used Numeric (0 - 10) Pain Management Techniques Apply Cold,Distraction, Modification of Treatment,Re- positioning,Timing of Activity with Medications M4 PT-IP Mobility and Gait Start: 10/29/24 12:52 Freq: NEEDED Status: Active Protocol: Document 10/31/24 09:45 AB(2) (Rec: 10/31/24 12:41 AB(2) [id number]) PT-Bed Mobility Assessment Supine to Sit Supine to Sit Minimal Assistance,Head of Bed Elevated,Bedrails Scooting Scooting to Edge of Bed Maximum Assistance PT-Transfer Assessment Sit to and From Stand Sit to and from Stand Maximum Assistance,1 Person Assistance,2 Person Assistance ,Use of Upper Extremities Equipment Transfer Assistive Device Gait Belt,Front Wheeled Walker Orthotic/Prosthetic Devices or Brace: No Transfers Transfer Destination Chair Transfer Technique Stand Step Pivot Transfer Ability Level of Assist Maximum Assistance,1 Person Assistance,2 Person Assistance ,Use of Upper Extremities Comments Mobility Comments pt supine in bed and agreeable to do PT. O2 sat at RA: 96%. completed supine to sit min A and max cues. O2 sat 91% but increased to 95% in 10 sec. completed sit to stand from EOB max A x 1-2 and max cues. cued for L quads activation. pt able to step transfer to chair using FWW max A x 1-2 and max cues. slight L knee buckling but pt able to control. pt agreed to ambulate. sit to stand from chair max A x 1-2 and max cues and ambulated in room ~ 8 ft using fWW max A x 1-2 and max cues and with chair follow. positioned pt on the chair. call light and table placed within reach. Gait Assessment Gait Gait Assistance Required: Maximum Assistance,1 Person Assist,2 Person Assist Distance (Feet) 8 Able to Maintain Weight Bearing Status Yes During Gait Assistive Devices Assistive Device Gait Belt,Front Wheeled Walker Orthotic/Prosthetic Devices or Brace: No Gait Deviations General Gait Pattern Decreased Stride Length, Decreased Feet Clearance, Flexed Trunk,Step-to Gait Factors Limiting Gait Function Factors Limiting Gait Function Decreased Activity Tolerance, Decreased Strength,Difficulty Following Directions,Limited Range of Motion,Pain,Poor Balance,Poor Safety Awareness M5 PT-IP Objective Assessments Start: 10/29/24 12:52 Freq: NEEDED Status: Active Protocol: Document 10/29/24 10:10 AB(2) (Rec: 10/29/24 13:08 AB(2) [id number]) Orientation Orientation/Cognition Level of Alertness Alert Orientation Name Language Function Ability Hard of Hearing Safety Awareness Decreased Safety Awareness Memory Description Short Term Impaired Gross Range of Motion Lower Extremity ROM Assessment Within Functional Limits Impairments L knee flexion: ~ 40 deg L knee extension: 30 deg less to 0 Strength Lower Extremity Strength Assessment Bilaterally Impaired Comments Strength Comments LLE: 3-/5 RLE: 3+/5 Muscle Tone Muscle Tone WNL Yes M6 PT-IP Treatment Start: 10/29/24 12:52 Freq: NEEDED Status: Active Protocol: Document 10/31/24 09:45 AB(2) (Rec: 10/31/24 12:41 AB(2) [id number]) Physical Therapy Treatment Education Education Provided Safety M7 PT-IP Assessment and Plan Start: 10/29/24 12:52 Freq: NEEDED Status: Active Protocol: Document 10/31/24 09:45 AB(2) (Rec: 10/31/24 12:41 AB(2) [id number]) PT Summary Assessment and Plan Potential Rehabilitation Potential Fair Summary Impairments Pain,ROM,Strength,Balance, Coordination,Sensation,Tone, Cognition,Bed Mobility, Transfers,Gait,Activity Tolerance Progress Towards Goals Slow Progress due to Pain,Slow Progress due to Medical Issues,Slow Progress due to Activity Tolerance Assessment Summary pt improving slowly with mobility and was able to ambulate using FWW max A x 1-2 and max cues ~ 8 ft. pt will still require 24/7 assist and will benefit from SNF rehab. Goals Bed Mobility Goal Minimal Assistance Transfer Goal Minimal Assistance,Front Wheeled Walker Gait Goal Minimal Assistance,Front Wheel Walker Gait Distance 25 Other Goals improve bed mobility, transfers, ambulation using fWW ~ 100 ft SBA Days to Meet Goals 9 Frequency of Treatment Other frequency 1-2x/day Treatment Plan Physical Therapy Treatment Plan Bed Mobility Training,Transfer Training,Gait Training, Therapeutic Exercise,Balance Retraining,Post Op Education, Discharge Planning,Hot or Cold Pack,Neuromuscular Re-ed, Coordination Retraining,Manual Therapy Weight Bearing Status Weight Bearing Status Weight Bear as Tolerated Allowed Weight Bearing Amount (enter % LLE wBAT or #) (%) Recommendations To Nursing Amount of Assist Needed 2 Person Assist Discharge Recommendations PT Discharge Recommendations SNF Rehab Transportation Needs at Discharge Wheelchair/Cabulance
--- NOTE | 2024-10-31 10:51 | CM.DPC ---
Addendum entered by KIANNA Robbins 10/31/24 17:05: 1430: [facility] reports pt has been accepted officially but cannot be admitted until Sunday, 11/03 after 9am. They are requesting CM team to follow up call Charlene (ph#[phone]) on day of discharge to confirm arrival time and mode of transport. Hospital exempt PASRR faxed to [facility] per Admission Request. RN-RN Report#: [phone]. ROSE GRADING SUPERVISOR spoke to pt and about the above at beside, pt verbalized understanding about possible wheelchair cabulance transport, private pay, but is hopeful that pt can progress enough over the weekend to be transported by herself and their daughter in their SUV to avoid cost. CM Team to consider this discussion when dc more imminent, in case transport needs to be coordinated. Plan: Anticipating dc to SNF on Sunday, 11/03, after 9am via wheelchair cabulance vs. family POV, pending pt status. SHIMA Gutiérrez Original Note: SNF DCP Continued: Reviewed EMR and team rounds for pt?s medical status. Per EMR, discharge orders are placed in case pt able to discharge home. Called and left a voice message with [facility] Admissions (ph#[phone]), 2x; pending response. PASRR initiated by this ROSE GRADING SUPERVISOR, positive due to fluoxetine rx. Ortho PA signed. PASRR in Care Management office, pending confirmation of accepting SNF. Per handoff, pt hoping to transport pt to [facility] in [place]. Per RN and PT, wheelchair transport more appropriate. When SNF acceptance confirmed, will need to discuss medical transport with (private pay). Plan: Pending SNF acceptance, anticipating dc to SNF. CM Team will continue to follow for coordination of discharge plans. SHIMA Gutiérrez
--- NOTE | 2024-10-31 12:01 | OT.IP.TRT ---
Current Diagnoses Unilateral primary osteoarthritis, left knee (10/28/24) Presence of unspecified artificial knee joint (10/28/24) Surgery Performed Operation Date: 10/28/24 13:45 Actual Procedures p Total Knee Arthroplasty - Robot(Left) - Kate Cabrera MD Occupational Therapy Treatment Note M2 OT-IP Current Condition Start: 10/29/24 11:36 Freq: Status: Active Protocol: Document 10/29/24 11:37 [facility] (Rec: 10/29/24 12:12 [facility] [id number]) Occupational Therapy Current Condition Current Condition Evaluation Date 10/29/24 Treatment Diagnosis S/P L TKA Diagnosis Onset Date 10/28/24 M3 OT- IP Subjective and Pain Start: 10/29/24 11:36 Freq: Status: Active Protocol: Document 10/31/24 11:53 [facility] (Rec: 10/31/24 12:00 [facility] [id number]) OT- Subjective Occupational Therapy Visit Type Type Treatment Note Visit Start Time 11:15 Visit Stop Time 11:36 Occupational Therapy Visit Comments Patient Comments Pt just having completed showering and agreed to do SLUMS. Patient/Caregiver Goals TO go home. OT Pain Assessment Pain When Pain Assessed At Rest Pain Present Pain Present Denied Pain M4 OT- IP ADL's Start: 10/29/24 11:36 Freq: Status: Active Protocol: Document 10/30/24 12:37 [facility] (Rec: 10/30/24 12:44 [facility] [id number]) OT [id number] Comments OT Self-Feeding Comments Pt states having difficulty to hold the utensils- requested large handled light weight utensils from the kitchen and to also have nursing aid check on him during lunch. Per aid pt was very sleepy this morning during breakfast. OT ADL-Grooming General Evaluation Areas Needing Assistance Retrieving/Set-up of Grooming Items Comments OT Grooming Comments Able to do while seated in the recliner. OT ADL-Oral Care General Eval Oral Care Ability Standby Assistance Comments Oral Care Comments vc for completeness OT ADL-Dressing General Eval Lower Body Dressing Ability Total Assistance Areas Needing Assistance Underpants/Brief,Socks OT ADL-Toileting General Evaluation Toileting Ability Total Assistance Areas Needing Assistance Manage Clothing,Perform Perineal Hygiene Comments OT Toileting Comments MAX AX 2 to stand to the FWW, one person to keep pt standign with MAX AX 1 to the FWW while aid assist with all hygiene needs. Pt tends to lean on his heel and needing assist and cues to lean forwards. OT ADL-Bathing Comments OT Bathing Comments Sponge bath more appropriate or use of rolling shower chair . M5 OT- IP IADL's Start: 10/29/24 11:36 Freq: Status: Active Protocol: Document 10/29/24 11:37 [facility] (Rec: 10/29/24 12:12 [facility] [id number]) OT-Instrumental Activities of Daily Living Deficits IADL Deficits Identified Deficits Home Safety Awareness Home Safety Comments Pt is a little groggy at this time. Medication Management Medication Management Caregiver Administers Money Management Money Management Caregiver Provides Assistance Meal Preparation Meal Preparation Caregiver Provides Assist Car Salter Car Salter Caregiver Provides Assist M6 OT- IP Functional Cognition Start: 10/29/24 11:36 Freq: Status: Active Protocol: Document 10/31/24 11:53 [facility] (Rec: 10/31/24 12:00 [facility] [id number]) Cognitive Factors Limiting Selfcare Function Cognitive Ability Level of Alertness Alert Patient Orientation Name,Age,Birthday,Month,Date, Year,Place,Situation Attention Span Ability Capable of Focused Attention, Capable of Sustained Attention Ability to Follow Commands Able to Follow One Step Commands Cognitive Tests SLUMS Pt scored 22/30 which implies mild cognitive impairments. Pt thought it was Tues or Wed, able to recall 12 animal in one minute, able to recall 3/5 words after time passed, not able to draw the hours hands correctly after time given, and able to answer 3/4 questions right after a paragraph read. Pt admit he is not back to his baseline thinking hyde yet. This may be impacted from his infections. Cognitive Comments Cognitive Assessment Comments Pt able to follow directions for SLUMS with increased time. Suggested if going home to have his supervise and assist him. M7 OT- IP Mobility and Balance Start: 10/29/24 11:36 Freq: Status: Active Protocol: Document 10/30/24 12:37 [facility] (Rec: 10/30/24 12:44 [facility] [id number]) OT-Transfer Assessment Sit to and From Stand Sit to and from Stand Maximum Assistance,2 Person Assistance Devices Transfer Assistive Devices Gait Belt,Front Wheeled Walker OT- Balance Assessment Sitting Balance and Reactions Static Sitting Balance Ability Good Dynamic Sitting Balance Ability Fair Standing Balance and Reactions Static Standing Balance Ability Poor Dynamic Standing Balance Ability Poor M8 OT- IP Objective Assessments Start: 10/29/24 11:36 Freq: Status: Active Protocol: Document 10/29/24 11:37 [facility] (Rec: 10/29/24 12:12 [facility] [id number]) OT Gross Range of Motion Upper Extremity Range of Motion Assessment Right Impaired OT Strength Upper Extremity Strength Assessment Right Impaired M9 OT- IP Assessment and Plan Start: 10/29/24 11:36 Freq: Status: Active Protocol: Document 10/31/24 11:53 [facility] (Rec: 10/31/24 12:00 [facility] [id number]) OT Summary Assessment and Plan Potential Rehabilitation Potential Good Analytic Complexity at Evaluation Low Summary OT Impairments Pain,Range of Motion,Strength, Balance,Functional Cognition, Functional Mobility,Self- Feeding,Grooming,Dressing, Toileting,Bathing,Toilet Transfers,Shower Transfers, Activity Tolerance Progress Towards Goals Progressing Toward Goals Assessment Summary Pt overall much better but still a little unsteady on his feet and scored 22/30 on the SLUMS. Pt will benefit from 24 /7 assist a shower chair and FWW and home health at this time. Goals Self-Feeding Goal Independent Grooming Goal Independent Dressing Goal Independent,Long Handled Shoe Horn,Waterside Worker,Sock Aid Toileting Goal Independent Bathing Goal Standby Assistance Toilet Transfer Goal Independent Shower Transfer Goal Standby Assistance Days to Meet Goals 10 Frequency of Treatment Other frequency 5x/week Treatment Plan OT Treatment Plan ADL Training,Functional Mobility,Patient/Family Education,Discharge Planning Discharge Recommendations OT Discharge Recommendations Home with 24/7 Assist Available,Home Health Transportation Needs at Discharge Private Vehicle
--- NOTE | 2024-10-31 13:17 | OT.IP.TRT ---
Current Diagnoses Unilateral primary osteoarthritis, left knee (10/28/24) Presence of unspecified artificial knee joint (10/28/24) Surgery Performed Operation Date: 10/28/24 13:45 Actual Procedures p Total Knee Arthroplasty - Robot(Left) - Kate Cabrera MD Occupational Therapy Treatment Note M2 OT-IP Current Condition Start: 10/29/24 11:36 Freq: Status: Active Protocol: Document 10/29/24 11:37 [facility] (Rec: 10/29/24 12:12 [facility] [id number]) Occupational Therapy Current Condition Current Condition Evaluation Date 10/29/24 Treatment Diagnosis S/P L TKA Diagnosis Onset Date 10/28/24 M3 OT- IP Subjective and Pain Start: 10/29/24 11:36 Freq: Status: Active Protocol: Document 10/31/24 13:18 [facility] (Rec: 10/31/24 13:25 [facility] [id number]) OT- Subjective Occupational Therapy Visit Type Type Treatment Note Visit Start Time 12:57 Visit Stop Time 13:17 Occupational Therapy Visit Comments Patient Comments Pt noted brief wet and needing to be changed. Patient/Caregiver Goals TO get better. OT Pain Assessment Pain When Pain Assessed At Rest Pain Present Pain Present Denied Pain Location Left Knee Pain Behaviors Facial Grimacing,Holding Area M4 OT- IP ADL's Start: 10/29/24 11:36 Freq: Status: Active Protocol: Document 10/31/24 13:18 [facility] (Rec: 10/31/24 13:25 [facility] [id number]) OT [id number] Comments OT Self-Feeding Comments Pt states had finger food and was able to eat better. In addition his macular deg make it difficult to see his food. OT ADL-Dressing General Eval Lower Body Dressing Ability Total Assistance Areas Needing Assistance Underpants/Brief OT ADL-Toileting General Evaluation Toileting Ability Total Assistance Areas Needing Assistance Manage Clothing,Perform Perineal Hygiene Comments OT Toileting Comments MAX AX 2 to stand to the FWW , pt heavily leans posteriorly. MAX AX 1 to stand to the FWW while assist from the aid for brief and hygiene needs. M5 OT- IP IADL's Start: 10/29/24 11:36 Freq: Status: Active Protocol: Document 10/29/24 11:37 [facility] (Rec: 10/29/24 12:12 [facility] [id number]) OT-Instrumental Activities of Daily Living Deficits IADL Deficits Identified Deficits Home Safety Awareness Home Safety Comments Pt is a little groggy at this time. Medication Management Medication Management Caregiver Administers Money Management Money Management Caregiver Provides Assistance Meal Preparation Meal Preparation Caregiver Provides Assist Hearing Specialist Hearing Specialist Caregiver Provides Assist M6 OT- IP Functional Cognition Start: 10/29/24 11:36 Freq: Status: Active Protocol: Document 10/31/24 13:18 [facility] (Rec: 10/31/24 13:25 [facility] [id number]) Cognitive Factors Limiting Selfcare Function Cognitive Ability Level of Alertness Alert Patient Orientation Name,Age,Birthday,Month,Date, Year,Place,Situation Attention Span Ability Capable of Focused Attention, Capable of Sustained Attention Ability to Follow Commands Able to Follow One Step Commands Cognitive Comments Cognitive Assessment Comments Pt ble to follow commands for needs but needing increased time to initiate movements at times. M7 OT- IP Mobility and Balance Start: 10/29/24 11:36 Freq: Status: Active Protocol: Document 10/31/24 13:18 [facility] (Rec: 10/31/24 13:25 [facility] [id number]) OT-Transfer Assessment Sit to and From Stand Sit to and from Stand Maximum Assistance,1 Person Assistance,2 Person Assistance Comments Mobility Comments Pt feeling heavy headed and BP after standing 88/49 and then 92/49 and 100/61. Pt states gets that way at home at times . To notify nursing of drop in BP. OT- Balance Assessment Sitting Balance and Reactions Static Sitting Balance Ability Fair Dynamic Sitting Balance Ability Poor Standing Balance and Reactions Static Standing Balance Ability Poor Dynamic Standing Balance Ability Poor M8 OT- IP Objective Assessments Start: 10/29/24 11:36 Freq: Status: Active Protocol: Document 10/29/24 11:37 [facility] (Rec: 10/29/24 12:12 [facility] [id number]) OT Gross Range of Motion Upper Extremity Range of Motion Assessment Right Impaired OT Strength Upper Extremity Strength Assessment Right Impaired M9 OT- IP Assessment and Plan Start: 10/29/24 11:36 Freq: Status: Active Protocol: Document 10/31/24 13:18 [facility] (Rec: 10/31/24 13:25 [facility] [id number]) OT Summary Assessment and Plan Potential Rehabilitation Potential Good Analytic Complexity at Evaluation Low Summary OT Impairments Pain,Range of Motion,Strength, Balance,Functional Cognition, Functional Mobility,Self- Feeding,Grooming,Dressing, Toileting,Bathing,Toilet Transfers,Shower Transfers, Activity Tolerance Progress Towards Goals Progressing Toward Goals,Slow Progress due to Pain,Slow Progress due to Activity Tolerance Assessment Summary Pt continues to have pain in his left knee and needing extensive 2 person assist for ADL and mobility needs. Pt to go to skilled rehab when medically stable. Goals Self-Feeding Goal Independent Grooming Goal Independent Dressing Goal Independent,Long Handled Shoe Horn,Reporter Anchor,Sock Aid Toileting Goal Independent Bathing Goal Standby Assistance Toilet Transfer Goal Independent Shower Transfer Goal Standby Assistance Days to Meet Goals 39 Frequency of Treatment Other frequency 5x/week Treatment Plan OT Treatment Plan ADL Training,Functional Mobility,Patient/Family Education,Discharge Planning Discharge Recommendations OT Discharge Recommendations SNF Rehab Transportation Needs at Discharge Wheelchair/Cabulance
--- NOTE | 2024-10-31 15:54 | PC.NURSE ---
Iona here this am and notified of temp and o2 changes during the night- cxr done and cleared by Iona to continue discharge- pt placed on RA sats greater than 95% then eval by PT and in chair, cms intact, denies pain, bp lowered to 88 dialstolic and recovered easly at rest to 100. back to bed max assist-DC home cancelled \ plan for sunday discharge per care mgmt and .
[2024-10-31] MEDS: ATORVASTATIN 20 MG TABLET PO (20:03)
[2024-10-31] MEDS: polyethylene glycoL 3350 17 GM POWD.PACK PO (20:05)
[2024-11-01 00:01] VITALS: O2SAT 96
[2024-11-01 06:52] VITALS: O2SAT 95
--- NOTE | 2024-11-01 07:16 | PM.PNPO.1 ---
Subjective Subjective Date Patient Seen: 11/01/24 Time Patient Seen: 08:01 Interval history: Pt lying in bed, responds easily to loud voice. He is DOUGLAS but fully oriented. Pt denies chest pain, no SOB. Eating and voiding without difficulty. No BM since admission; he is passing flatus. No nausea, no abdominal pain. Of note, he did have an emergent SBRxn by Dr Villeda in June 2024 d/t SBO, but there are no symptoms of SBO at this time. Exam Vital Signs (past 8 hours): - 10/31/24 23:45 11/01/24 00:01 11/01/24 06:52 Pulse Oximetry 91 96 95 Oxygen Flow Rate 0 1.5 0 Fraction of Inspired Oxygen 28 SaO2/FiO2 Ratio 339 Oxygen Delivery Method Nasal Cannula Oxygen Flow Rate 0 Narrative Exam Narrative: 4/5 hip flexors, quadriceps, hamstrings; 5/5 PF, DF, EHL on left. Sensation to light touch intact throughout LLE. Calf soft and compressible. JEN over CEM CDI, CEM functioning. Objective Labs 10/29/24 05:47 PFSH Medical History (Updated 10/30/24 @ 15:25 by Kate Cabrera MD) RLS (restless legs syndrome) Impaired functional mobility, balance, gait, and endurance History of short term memory loss BPH (benign prostatic hyperplasia) Hx of sinus bradycardia Depression History of Mohs micrographic surgery for skin cancer BCC (basal cell carcinoma) Osteoarthritis GERD (gastroesophageal reflux disease) History of COVID-19 (~07/2024) HLD (hyperlipidemia) HTN (hypertension) Macular degeneration Neuropathy Enlarged prostate CHF (congestive heart failure) Arthritis Atrial fibrillation Stroke (~10/2023) Aortic stenosis Abdominal aortic aneurysm Surgical History (Updated 10/31/24 @ 08:14 by Julissa Lee PA-C) Hx of abdominal surgery (07/11/24) Hx of hammer toe correction History of urologic surgery Hx of bilateral cataract extraction History of angioplasty History of endovascular stent graft for abdominal aortic aneurysm (AAA) (10/18/23) History of appendectomy H/O aortic aneurysm repair 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 Med list and rxs printed, PASRR signed, will re-write d/c summary for Sunday. Continue supportive care, PT, WBAT on LLE. Bisacodyl suppository ordered. No suspicion of obstruction at this time. Still with minimal O2 needs o/n, afebrile. Encourage use of IS. Postoperative Procedures: Procedures Operation Date: 10/28/24 13:45 Actual Procedure Side Surgeon p Total Knee Arthroplasty - Robot Left Kate Cabrera MD Postoperative day: 4 Quality VTE Deep Vein Thrombosis/Pulmonary Embolism Present on Admission: No
[2024-11-01] MEDS: DOCUSATE 100 MG CAPSULE PO ×2 (09:01→20:05)
[2024-11-01] MEDS: MULTIVITAMIN 1 TABLET 1 TAB PO (09:01)
[2024-11-01] MEDS: FLUoxetine 10 MG CAPSULE PO (09:01)
[2024-11-01] MEDS: ASPIRIN EC 81 MG TABLET PO ×2 (09:01→20:05)
[2024-11-01] MEDS: CHOLECALCIFEROL (VITAMIN D3) 5,000 UNIT TABLET 5000 UNIT PO (09:01)
[2024-11-01] MEDS: AMIODARONE 200 MG TABLET 100 MG PO (09:01)
[2024-11-01] MEDS: ACETAMINOPHEN 325 MG TABLET 650 MG PO ×2 (09:01→20:03)
[2024-11-01] MEDS: AMLODIPINE 5 MG TABLET PO (09:01)
[2024-11-01] MEDS: polyethylene glycoL 3350 17 GM POWD.PACK PO (09:01)
[2024-11-01] MEDS: SODIUM CHLORIDE 0.9% FLUSH 10 ML IV ×2 (09:02→20:06)
--- NOTE | 2024-11-01 10:25 | PT.IPTN ---
Current Diagnoses Unilateral primary osteoarthritis, left knee (10/28/24) Presence of unspecified artificial knee joint (10/28/24) Surgery Performed Operation Date: 10/28/24 13:45 Actual Procedures p Total Knee Arthroplasty - Robot(Left) - Kate Cabrera MD Physical Therapy Treatment Note M2 PT-IP Current Condition Start: 10/29/24 12:52 Freq: NEEDED Status: Active Protocol: Document 10/30/24 08:20 AB (Rec: 10/30/24 09:20 AB [id number]) Physical Therapy Current Condition Current Condition Evaluation Date 10/29/24 Treatment Diagnosis s/p L TKA; difficulty in walking Onset Date 10/28/24 M3 PT-IP Subjective Start: 10/29/24 12:52 Freq: NEEDED Status: Active Protocol: Document 11/01/24 10:25 AB(2) (Rec: 11/01/24 12:34 AB(2) [id number]) Subjective Physical Therapy Visit Type Type Treatment Note Visit Start Time 10:25 Visit Stop Time 10:55 Number of DOOR TO DOOR SALESPERSON Visits 0 Physical Therapy Visit Comments Patient Comments agreeable to do PT Therapy Pain Assessment Pain When Pain Assessed At Rest Pain Present Pain Present Pain Reported Location Left Knee Intensity 4 Scale Used Numeric (0 - 10) Pain Behaviors Guarding Pain Management Techniques Apply Cold,Distraction, Modification of Treatment,Re- positioning,Timing of Activity with Medications M4 PT-IP Mobility and Gait Start: 10/29/24 12:52 Freq: NEEDED Status: Active Protocol: Document 11/01/24 10:25 AB(2) (Rec: 11/01/24 12:34 AB(2) [id number]) PT-Bed Mobility Assessment Supine to Sit Supine to Sit Minimal Assistance,1 Person Assistance,Head of Bed Elevated,Bedrails PT-Transfer Assessment Sit to and From Stand Sit to and from Stand Maximum Assistance,1 Person Assistance,Use of Upper Extremities Equipment Transfer Assistive Device Gait Belt,Front Wheeled Walker Orthotic/Prosthetic Devices or Brace: No Transfers Transfer Technique ambulated Transfer Ability Level of Assist Moderate Assistance,Maximum Assistance,1 Person Assistance ,Use of Upper Extremities Comments Mobility Comments pt supine in bed and agreeable to do PT. completed supine LLE exercises: heall slides, passive extension and quads sets. completed supine to sit min A with HOB elevated ~ 30 deg and pt used bed rail to assist. able to sit on EOB SBA. O2 sat : 90-91%. pt completed sit to stand max A and max cues. continues to have increase retrolean with posterior LOB requiring max A for balance. pt ambulated in room ~ 10 ft using FWW initially mod A but midway requiring max A and max cues for safety and upright posture. (+) SOB. O2 sat seated after ambulation: 91-92 %. pt agreed to sit up on the chair. call light and table placed within reach. Gait Assessment Gait Gait Assistance Required: Moderate Assistance,Maximum Assistance Distance (Feet) 10 Able to Maintain Weight Bearing Status Yes During Gait Assistive Devices Assistive Device Gait Belt,Front Wheeled Walker Orthotic/Prosthetic Devices or Brace: No Gait Deviations General Gait Pattern Decreased Stride Length, Decreased Feet Clearance,Step- to Gait Factors Limiting Gait Function Factors Limiting Gait Function Decreased Activity Tolerance, Decreased Strength,Difficulty Following Directions,Limited Range of Motion,Pain,Poor Balance,Poor Safety Awareness, Respiratory Distress M5 PT-IP Objective Assessments Start: 10/29/24 12:52 Freq: NEEDED Status: Active Protocol: Document 10/29/24 10:10 AB(2) (Rec: 10/29/24 13:08 AB(2) [id number]) Orientation Orientation/Cognition Level of Alertness Alert Orientation Name Language Function Ability Hard of Hearing Safety Awareness Decreased Safety Awareness Memory Description Short Term Impaired Gross Range of Motion Lower Extremity ROM Assessment Within Functional Limits Impairments L knee flexion: ~ 40 deg L knee extension: 30 deg less to 0 Strength Lower Extremity Strength Assessment Bilaterally Impaired Comments Strength Comments LLE: 3-/5 RLE: 3+/5 Muscle Tone Muscle Tone WNL Yes M6 PT-IP Treatment Start: 10/29/24 12:52 Freq: NEEDED Status: Active Protocol: Document 11/01/24 10:25 AB(2) (Rec: 11/01/24 12:34 AB(2) [id number]) Physical Therapy Treatment Exercises Exercises Quad Sets,Heel Slides Education Education Provided Safety M7 PT-IP Assessment and Plan Start: 10/29/24 12:52 Freq: NEEDED Status: Active Protocol: Document 11/01/24 10:25 AB(2) (Rec: 11/01/24 12:34 AB(2) [id number]) PT Summary Assessment and Plan Potential Rehabilitation Potential Fair Summary Impairments Pain,ROM,Strength,Balance, Coordination,Sensation,Tone, Cognition,Bed Mobility, Transfers,Gait,Activity Tolerance Progress Towards Goals Slow Progress due to Medical Issues,Slow Progress due to Activity Tolerance Assessment Summary pt improving slowly and continues to require max A for sit to stand with posterior LOB. pt able to ambulate ~ 10 ft using FWW mod to max A and max cues. pt with decrease activity tolerance affecting mobility. pt will need SNF rehab to improve overall strength and function. Goals Bed Mobility Goal Minimal Assistance Transfer Goal Minimal Assistance,Front Wheeled Walker Gait Goal Minimal Assistance,Front Wheel Walker Gait Distance 25 Other Goals improve bed mobility, transfers, ambulation using fWW ~ 100 ft SBA Days to Meet Goals 10 Frequency of Treatment Other frequency 1-2x/day Treatment Plan Physical Therapy Treatment Plan Bed Mobility Training,Transfer Training,Gait Training, Therapeutic Exercise,Balance Retraining,Post Op Education, Discharge Planning,Hot or Cold Pack,Neuromuscular Re-ed, Coordination Retraining,Manual Therapy Weight Bearing Status Weight Bearing Status Weight Bear as Tolerated Allowed Weight Bearing Amount (enter % LLE WBAT or #) (%) Recommendations To Nursing Amount of Assist Needed 2 Person Assist Discharge Recommendations PT Discharge Recommendations SNF Rehab Transportation Needs at Discharge Wheelchair/Cabulance
--- NOTE | 2024-11-01 10:50 | CM.DPNOTE ---
DCP Note CHECKER [employer]MP [employer]OUN[employer] reviewed EMR. pt POD4 total left knee. per ortho PA, medically cleared to dc to SNF when placement is secured. [employer] spoke with PT, highly recommend wheelchair transport not POV. [employer] spoke with spouse Breana (p [phone]), confirms likely not able to assist pt with transfer for POV. in agreement to pay for wheelchair cabulance. gave spouse contact for [facility]. Breana later confirmed she scheduled and paid for transport for 10am Sunday. [employer] spoke with Wiley from [facility]. Confirmed (P [phone]) all set for transport for pt Sunday at 10am. [employer] lvm with Charlene (ph#[phone]) (ph#[phone]) from [facility] to confirm plan for Sunday. [employer]: RN-RN Report#: [phone]. / (f [phone]). PASRR previously completed and faxed. P: dc Sunday to [facility] at 10am via [facility]. CM Team will continue to follow for coordination of discharge plans. KIANNA Osborn
[2024-11-01 13:01] VITALS: BP 112/67; PULSE 73; RESP 19; TEMP 36.8; O2SAT 94
[2024-11-01 18:00] VITALS: BP 137/74; PULSE 66; RESP 19; TEMP 36.7; O2SAT 94
[2024-11-01 20:00] VITALS: BP 125/70; PULSE 71; RESP 20; TEMP 36.8; O2SAT 96
[2024-11-01] MEDS: ATORVASTATIN 20 MG TABLET PO (20:05)
[2024-11-01] MEDS: OXYCODONE IR 5 MG TABLET PO (21:07)
[2024-11-02 02:00] VITALS: BP 128/73; PULSE 68; RESP 16; TEMP 36.8; O2SAT 95
[2024-11-02] MEDS: FLUoxetine 10 MG CAPSULE PO (08:29)
[2024-11-02] MEDS: SODIUM CHLORIDE 0.9% FLUSH 10 ML IV ×2 (08:29→20:32)
[2024-11-02] MEDS: ASPIRIN EC 81 MG TABLET PO ×2 (08:29→20:31)
[2024-11-02] MEDS: MULTIVITAMIN 1 TABLET 1 TAB PO (08:29)
[2024-11-02] MEDS: DOCUSATE 100 MG CAPSULE PO ×2 (08:29→20:31)
[2024-11-02] MEDS: CHOLECALCIFEROL (VITAMIN D3) 5,000 UNIT TABLET 5000 UNIT PO (08:29)
[2024-11-02] MEDS: ACETAMINOPHEN 325 MG TABLET 650 MG PO ×2 (08:30→16:31)
[2024-11-02] MEDS: OXYCODONE IR 5 MG TABLET PO ×2 (08:30→16:30)
[2024-11-02 08:38] VITALS: BP 80/50; RESP 19; TEMP 36.4; O2SAT 94
[2024-11-02 08:45] VITALS: BP 92/42
--- NOTE | 2024-11-02 09:22 | P.PN_ITS ---
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 PAST SURGICAL HISTORY - Primary left total knee arthroplasty performed by Dr. Cabrera on October 28, 2024, for avascular necrosis of the tibia with severe adverse deformity and significant medial tibial plateau bone loss. No complications reported. SUBJECTIVE Patient in bed resting comfortably. Sleeping when I arrived. Currently, he is breathing fine without oxygen support. He mentions waiting for a physical therapist to help with knee bending, as he says he is unable to bend his left knee without assistance. PHYSICAL EXAM Constitutional: - Patient is in bed, sleeping, easily arousable, and appears comfortable. Conversant and appropriate throughout the encounter. Respiratory: - No nasal cannula in place. Normal respiratory rate without stridor or wheezing or use of accessory muscles for inspiration. Musculoskeletal: - Examination of the left knee shows an Tong wrap and a CEM dressing in place, functioning appropriately. No strikethrough on the dressing. Intact plantar flexion and dorsiflexion of the hallux and ankle. Palpable posterior tibial pulse. Mild pitting edema noted in the lower extremity. ASSESSMENT - Post-operative status following left total knee arthroplasty PLAN - Encourage the patient to spend as much time as possible in a chair to aid knee bending and improve pulmonary function. - Continue supportive care, PT, WBAT on LLE. - Continue respiratory therapy - Continue working on transfer to a nursing facility for rehabilitation. DISPOSITION Planned discharge to a nursing facility tomorrow. Exam Vital Signs (past 8 hours): - 11/02/24 02:00 11/02/24 08:38 11/02/24 08:45 Temperature 98.3 F 97.6 F Pulse Rate 68 Respiratory Rate 16 19 Blood Pressure 128/73 80/50 L 92/42 L Pulse Oximetry 95 94 Oxygen Flow Rate 0 0 Fraction of Inspired Oxygen 28 SaO2/FiO2 Ratio 339 Oxygen Delivery Method Room Air Oxygen Flow Rate 0 Objective Labs 10/29/24 05:47 [facility] Medical History (Updated 10/30/24 @ 15:25 by Kate Cabrera MD) RLS (restless legs syndrome) Impaired functional mobility, balance, gait, and endurance History of short term memory loss BPH (benign prostatic hyperplasia) Hx of sinus bradycardia Depression History of Mohs micrographic surgery for skin cancer BCC (basal cell carcinoma) Osteoarthritis GERD (gastroesophageal reflux disease) History of COVID-19 (~07/2024) HLD (hyperlipidemia) HTN (hypertension) Macular degeneration Neuropathy Enlarged prostate CHF (congestive heart failure) Arthritis Atrial fibrillation Stroke (~10/2023) Aortic stenosis Abdominal aortic aneurysm Surgical History (Updated 10/31/24 @ 08:14 by Julissa Lee PA-C) Hx of abdominal surgery (07/11/24) Hx of hammer toe correction History of urologic surgery Hx of bilateral cataract extraction History of angioplasty History of endovascular stent graft for abdominal aortic aneurysm (AAA) (10/18/23) History of appendectomy H/O aortic aneurysm repair S/P TAVR (transcatheter aortic valve replacement) (02/2020) Social History household members: spouse Smoking Status: Former smoker alcohol intake: former Assessment & Plan Time-Based Coding :: [TOTAL MINUTES] spent with patient and on the chart (including review of chart, obtaining history, exam, reviewing outside data, placing orders, documenting exam and treatment plan, and counseling patient) on [DATE]. Quality VTE Deep Vein Thrombosis/Pulmonary Embolism Present on Admission: No
--- NOTE | 2024-11-02 10:38 | PT.IPTN ---
Current Diagnoses Unilateral primary osteoarthritis, left knee (10/28/24) Presence of unspecified artificial knee joint (10/28/24) Surgery Performed Operation Date: 10/28/24 13:45 Actual Procedures p Total Knee Arthroplasty - Robot(Left) - Kate Cabrera MD Physical Therapy Treatment Note M2 PT-IP Current Condition Start: 10/29/24 12:52 Freq: NEEDED Status: Active Protocol: Document 10/30/24 08:20 AB (Rec: 10/30/24 09:20 AB [id number]) Physical Therapy Current Condition Current Condition Evaluation Date 10/29/24 Treatment Diagnosis s/p L TKA; difficulty in walking Onset Date 10/28/24 M3 PT-IP Subjective Start: 10/29/24 12:52 Freq: NEEDED Status: Active Protocol: Document 11/02/24 10:05 KS (Rec: 11/02/24 12:13 KS [id number]) Subjective Physical Therapy Visit Type Type Treatment Note Visit Start Time 10:05 Visit Stop Time 10:38 Number of [employer] HELPER Visits 1 Physical Therapy Visit Comments Patient Comments agreeable to do PT M4 PT-IP Mobility and Gait Start: 10/29/24 12:52 Freq: NEEDED Status: Active Protocol: Document 11/02/24 10:05 KS (Rec: 11/02/24 12:13 KS [id number]) PT-Bed Mobility Assessment Supine to Sit Supine to Sit Minimal Assistance,1 Person Assistance,Head of Bed Elevated,Bedrails Scooting Scooting to Edge of Bed Minimal Assistance PT-Transfer Assessment Sit to and From Stand Sit to and from Stand Moderate Assistance,1 Person Assistance,Use of Upper Extremities Equipment Transfer Assistive Device Gait Belt,Front Wheeled Walker Orthotic/Prosthetic Devices or Brace: No Transfers Transfer Destination Chair Transfer Technique Stand Step Pivot Transfer Ability Level of Assist Moderate Assistance,1 Person Assistance,Use of Upper Extremities Comments Mobility Comments Pt in bed upon arrival, agreeable to do PT. Min A for sup<>spt and scooting EOB. Pt sit<>stand w/ Mod/Max A and FWW and requested chair be placed closer for transfer due to feeling weak and tired. Pt sat back down. Bed raised and chair moved closer for energy conservation. Pt sit<>stand Mod A w/ FWW and performed stand step pivot to chair. Pt feeling fatigued after transfer but was able to complete LE strengthening exercises including ankle pumps, quad sets, glute sets, heel slides and seated marching. Pt left in chair w/ all needs in reach. Gait Assessment Gait Gait Assistance Required: Moderate Assistance,Maximum Assistance Distance (Feet) 5 Able to Maintain Weight Bearing Status Yes During Gait Assistive Devices Assistive Device Gait Belt,Front Wheeled Walker Orthotic/Prosthetic Devices or Brace: No Gait Deviations General Gait Pattern Decreased Stride Length, Decreased Feet Clearance,Step- to Gait Factors Limiting Gait Function Factors Limiting Gait Function Decreased Activity Tolerance, Decreased Strength,Difficulty Following Directions,Limited Range of Motion,Pain,Poor Balance,Poor Safety Awareness, Respiratory Distress PT-Balance Assessment Sitting Balance and Reactions Static Sitting Balance Ability Fair Dynamic Sitting Balance Ability Fair Standing Balance and Reactions Static Standing Balance Ability Fair Dynamic Standing Balance Ability Poor Device Used FWW M5 PT-IP Objective Assessments Start: 10/29/24 12:52 Freq: NEEDED Status: Active Protocol: Document 10/29/24 10:10 AB(2) (Rec: 10/29/24 13:08 AB(2) [id number]) Orientation Orientation/Cognition Level of Alertness Alert Orientation Name Language Function Ability Hard of Hearing Safety Awareness Decreased Safety Awareness Memory Description Short Term Impaired Gross Range of Motion Lower Extremity ROM Assessment Within Functional Limits Impairments L knee flexion: ~ 40 deg L knee extension: 30 deg less to 0 Strength Lower Extremity Strength Assessment Bilaterally Impaired Comments Strength Comments LLE: 3-/5 RLE: 3+/5 Muscle Tone Muscle Tone WNL Yes M6 PT-IP Treatment Start: 10/29/24 12:52 Freq: NEEDED Status: Active Protocol: Document 11/02/24 10:05 KS (Rec: 11/02/24 12:13 DE [id number]) Physical Therapy Treatment Exercises Exercises Ankle Pumps,Gluteal Sets,Quad Sets,Heel Slides Education Education Provided Safety Other Treatments Other Treatment Performed Seated marching M7 PT-IP Assessment and Plan Start: 10/29/24 12:52 Freq: NEEDED Status: Active Protocol: Document 11/02/24 10:05 KS (Rec: 11/02/24 12:13 DE [id number]) PT Summary Assessment and Plan Potential Rehabilitation Potential Fair Summary Impairments Pain,ROM,Strength,Balance, Coordination,Sensation,Tone, Cognition,Bed Mobility, Transfers,Gait,Activity Tolerance Progress Towards Goals Slow Progress due to Medical Issues,Slow Progress due to Activity Tolerance Assessment Summary Pt with good effort and motivation today however limited by fatigue and weakness. He was able to perform 2x STS, a stand step pivot transfer w/ Mod A and LE exercises to promote strengthening. Posterior lean when standing, requires verbal and tactile cues to maintain balance. He will benefit from SNF to improve functional mobility. Goals Bed Mobility Goal Minimal Assistance Transfer Goal Minimal Assistance,Front Wheeled Walker Gait Goal Minimal Assistance,Front Wheel Walker Gait Distance 25 Other Goals improve bed mobility, transfers, ambulation using fWW ~ 100 ft SBA Days to Meet Goals 10 Frequency of Treatment Other frequency 1-2x/day Treatment Plan Physical Therapy Treatment Plan Bed Mobility Training,Transfer Training,Gait Training, Therapeutic Exercise,Balance Retraining,Post Op Education, Discharge Planning,Hot or Cold Pack,Neuromuscular Re-ed, Coordination Retraining,Manual Therapy Weight Bearing Status Weight Bearing Status Weight Bear as Tolerated Allowed Weight Bearing Amount (enter % LLE WBAT or #) (%) Recommendations To Nursing Amount of Assist Needed 2 Person Assist Discharge Recommendations PT Discharge Recommendations SNF Rehab Transportation Needs at Discharge Wheelchair/Cabulance
--- NOTE | 2024-11-02 12:22 | PC.NURSE ---
Day shift: This copy writer discussed with RAAD Toscano that Pt would not d/c today (11/02/24). Discharge order (from 10/31/24) cancelled per protocol.
[2024-11-02 17:55] VITALS: BP 120/83; PULSE 84; RESP 22; TEMP 36.8; O2SAT 97
[2024-11-02 20:00] VITALS: BP 127/74; PULSE 63; RESP 16; TEMP 36.6; O2SAT 96
[2024-11-02] MEDS: ATORVASTATIN 20 MG TABLET PO (20:31)
[2024-11-03 02:05] VITALS: BP 140/75; PULSE 62; RESP 20; TEMP 36.7; O2SAT 95
[2024-11-03] MEDS: OXYCODONE IR 5 MG TABLET PO (04:24)
[2024-11-03] MEDS: ACETAMINOPHEN 325 MG TABLET 650 MG PO (04:25)
[2024-11-03] MEDS: CALCIUM CARBONATE 500 MG TAB PO (06:02)
--- NOTE | 2024-11-03 07:22 | P.DS_ITS ---
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 He had severe varus of his leg and severe AVN with collapse of his proximal medial tibia. He has multiple medical problems but has undergone an extensive workup and stabilization in preparation for knee arthroplasty. Non-operative management has failed and the patient has requested total knee replacement. The risks, benefits and alternatives to surgery were discussed with the patient prior to proceeding. Risks discussed included, but were not limited to, failure to relieve pain, stiffness, infection, nerve damage, deep venous thrombosis, pulmonary embolism, stroke, coma, heart attack, permanent paralysis and , as well as the potential need for eventual revision of the prosthetic. Surgeon: Kate Cabrera Farm Hand: Na Hamilton Anesthesia Type: General and Peripheral nerve block Operative Notes Findings: Severe left knee osteoarthritis, significant varus deformity, significant deformity with bone loss in the proximal medial tibia Closure Type: primary Specimen(s): none sent Prosthetic devices, grafts, tissues, transplants, or devices: Cabrera and nephew sergio BCS2 to size 6 femur , size 6 tibia, 10 by 100mm tibial stem, 9 mm poly, patella 38 Estimated Blood Loss (mL): 250 Blood products transfused: none Tourniquet time (min): 135 Discharge Providers Provider Date of admission: 10/28/24 11:00 Discharge Date: 11/03/24 Primary care physician: GELA Jarvis Consults: 10/28/24 06:00 Consult to Anesthesiology Routine Comment: Consulting Provider: Anesthesiologist Reason for consultation: Regional block for post operative pain control Consult to Discharge Planning Routine Comment: byron Bello @ discharge 10/28/24 18:53 Consult to Discharge Planning Routine Comment: Consult to Occupational Therapy Evaluate & Treat Comment: Physician Instructions: Evaluate and treat Consult to Physical Therapy Evaluate & Treat Comment: Physician Instructions: postop TKA protocol Discharge provider: Julissa Lee PA-C Summary Hospital Course Discharge Diagnosis: 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 During the evening of POD# 1, he developed a fever and required supplemental O2 via NC to maintain his oxygen saturation above 90%. On the morning of POD# 2, he was feeling well and denied CP or SOB but a chest xray was ordered. This demonstrated expected post-op bibasilar atelectasis. No further intervention was required. On the morning of POD# 6, he was feeling well and ready for discharge to SNF. He was eating and voiding without difficulty. He moved his bowels on POD# 4 and was continuing to pass flatus. Exam Vital Signs (past 8 hours): - 11/03/24 02:05 Temperature 98.0 F Pulse Rate 62 Respiratory Rate 20 Blood Pressure 140/75 Pulse Oximetry 95 Oxygen Flow Rate 0 Fraction of Inspired Oxygen 28 SaO2/FiO2 Ratio 339 Oxygen Delivery Method Room Air Oxygen Flow Rate 0 Narrative Exam Narrative: 4/5 strength in hip flexors, quadriceps, hamstrings; 5/5 PF, DF, EHL on left. Sensation to light touch intact throughout LLE. Calf soft and compressible. CEM dressing functioning, CDI. Objective Labs 10/29/24 05:47 PFSH Medical History (Updated 10/30/24 @ 15:25 by Kate Cabrera MD) RLS (restless legs syndrome) Impaired functional mobility, balance, gait, and endurance History of short term memory loss BPH (benign prostatic hyperplasia) Hx of sinus bradycardia Depression History of Mohs micrographic surgery for skin cancer BCC (basal cell carcinoma) Osteoarthritis GERD (gastroesophageal reflux disease) History of COVID-19 (~07/2024) HLD (hyperlipidemia) HTN (hypertension) Macular degeneration Neuropathy Enlarged prostate CHF (congestive heart failure) Arthritis Atrial fibrillation Stroke (~10/2023) Aortic stenosis Abdominal aortic aneurysm Surgical History (Updated 10/31/24 @ 08:14 by Julissa Lee PA-C) Hx of abdominal surgery (07/11/24) Hx of hammer toe correction History of urologic surgery Hx of bilateral cataract extraction History of angioplasty History of endovascular stent graft for abdominal aortic aneurysm (AAA) (10/18/23) History of appendectomy H/O aortic aneurysm repair S/P TAVR (transcatheter aortic valve replacement) (02/2020) Social History household members: spouse Smoking Status: Former smoker alcohol intake: former Discharge Assessment & Plan Assessment and Plan Assessment: 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 WBAT on operative leg. Multimodal pain control. Follow up in office as scheduled. Discharge Plan Discharge Plan Patient Disposition: [facility] Other facility: [facility] Discharge orders & Medications Prescriptions: New aspirin 81 mg Tablet,Delayed Release (Dr/Ec) 81 mg PO BID Qty: 90 0RF oxycodone 5 mg Tablet 5 mg PO Q4-6H PRN (Reason: Pain, Moderate (4-6)) Qty: 30 0RF ondansetron 4 mg Tablet,Disintegrating 4 mg PO Q4HR PRN (Reason: Nausea And Vomiting) Qty: 20 0RF polyethylene glycol 3350 17 gram Powder In Packet 17 g PO DAILY PRN (Reason: Constipation) Qty: 30 0RF Continued acetaminophen 500 mg Tablet 500 mg PO DAILY PRN (Reason: Pain) multivitamin Tablet 1 tab PO DAILY atorvastatin 20 mg tablet 20 mg PO BEDTIME Patient Comments: Evening amiodarone 200 mg tablet 100 mg PO DAILY amlodipine 5 mg tablet 5 mg PO DAILY fluoxetine 10 mg capsule 10 mg PO DAILY cholecalciferol (vitamin D3) [Vitamin D3] 125 mcg (5,000 unit) Tablet 125 mcg PO DAILY Patient Comments: Evening alpha lipoic acid 600 mg Tablet 600 mg PO BEDTIME Discontinued aspirin 81 mg Tablet,Chewable 81 mg DAILY Follow up/Referrals: Claudette Herbert ARNP [Primary Care Provider] - Kate Cabrera MD [Physician] - 11/07/24 1:00 pm (Follow up w/ SULMA Jansen, at [address] office in [place].) Diet/Activity/Treatments Diet: Diet as Tolerated Activity: Ambulate multiple times a day. Use a cane or walker as needed. Full weight on leg. Cold/Heat Therapy: Use ice multiple times a day. Skin/Wound/Dressing Care Report to your healthcare provider any signs of infection, such as:: chills, fever, night sweats, unusual drainage and unusual redness Dressing: May remove JEN wrap and shower. Leave CEM dressing in place until follow up in office. Batteries will in 5-7 days, at which point you can cut off battery pack and dispose of it. No bathing or otherwise soaking incision. Call the office if the dressing becomes saturated inside. [facility] Reason for rehabilitation: Post-operative therapy Rehab type: Physical therapy and Occupational therapy Visit Report/Discharge Packet Instructions: DI for Knee Replacement, DI for Prescription Opioid Use Stand Alone Forms: Patient Portal/API, Surgery Discharge Discharge Data Primary Care Provider: Claudette Herbert VTE Deep Vein Thrombosis/Pulmonary Embolism Present on Admission: No
[2024-11-03 08:00] VITALS: BP 128/82; PULSE 72; RESP 18; TEMP 36.8; O2SAT 96
[2024-11-03] MEDS: FLUoxetine 10 MG CAPSULE PO (08:15)
[2024-11-03] MEDS: AMIODARONE 200 MG TABLET 100 MG PO (08:16)
[2024-11-03] MEDS: DOCUSATE 100 MG CAPSULE PO (08:18)
[2024-11-03] MEDS: CHOLECALCIFEROL (VITAMIN D3) 5,000 UNIT TABLET 5000 UNIT PO (08:18)
[2024-11-03] MEDS: MULTIVITAMIN 1 TABLET 1 TAB PO (08:18)
[2024-11-03] MEDS: AMLODIPINE 5 MG TABLET PO (08:18)
[2024-11-03] MEDS: ASPIRIN EC 81 MG TABLET PO (08:18)
[2024-11-03] MEDS: SODIUM CHLORIDE 0.9% FLUSH 10 ML IV (08:19)
--- NOTE | 2024-11-03 08:59 | CM.DPC ---
DCP Discharge SNF Per Ortho PA, pt remains medically stable to discharge to SNF today and no identified barriers to discharge and d/c orders placed. CC Priti kindly faxed PASNELY, signed med list, MD marycruz orders, d/c summ to [facility] admissions to review. SW confirmed with admissions that [facility] in [place] can still accept patient this morning and confirmed they received the d/c packet and reviewed and anticipate pt before lunch time. SW called [facility] and confirmed they are enroute to transport the patient today between 0930 to 1000 and spouse already paid privately. SW called spouse Breana and updated on above and she continues to be in agreement with d/c plan for today. Updated betting clerk, PEDIATRIC OPHTHALMOLOGIST, and RN and provided number to call report. Plan: Patient to discharge to [facility] in [place] today via private pay cabulance around 1000 before safe return home with spouse. KIANNA Mckeon
--- NOTE | 2024-11-03 10:45 | PC.NURSE ---
Discharge Note Patient A&O, VSS, RA, no complaints of pain/discomfort. Discharge packet reviewed with patient, all questions/concerns addressed. PIV discontinued and able to dress self with assistance. Daughter at bedside assisting to pack all belongings. Patient assisted into wheelchair and taken down via transport. Report attempted to call x2 and no answer.
== END 2024-11-03 10:00 | DRG 469 ==
PROVIDERS: Admitting Provider Orthopaedic Surgery; PCP Nurse Practitioner Family; Referring Provider Internal Medicine; Visit Provider Orthopaedic Surgery
PROC: 0SRD0JZ Replacement of Left Knee Joint with Synthetic Substitute, Open Approach (ICD-10-PCS; CPT 27447; principal; 2024-10-28 13:45)
DX: M87.862 Other osteonecrosis, left tibia (principal); E43 Unspecified severe protein-calorie malnutrition; Z68.1 Body mass index [BMI] 19.9 or less, adult; J98.11 Atelectasis; R50.9 Fever, unspecified; M17.12 Unilateral primary osteoarthritis, left knee; E78.5 Hyperlipidemia, unspecified; F32.A Depression, unspecified; I25.10 Atherosclerotic heart disease of native coronary artery without angina pectoris; I50.9 Heart failure, unspecified; I11.0 Hypertensive heart disease with heart failure; M21.862 Other specified acquired deformities of left lower leg; Z86.73 Personal history of transient ischemic attack (TIA), and cerebral infarction without residual deficits; Z98.890 Other specified postprocedural states; Z95.2 Presence of prosthetic heart valve; Z98.61 Coronary angioplasty status; Z87.891 Personal history of nicotine dependence
CPT/HCPCS: 36415; 64450; 71045; 73560; 85014; 85018; 97110; 97116; 97163; 97165; 97530; 97535; C1776; A9270; J0171; J0330; J0666; J0690; J1171; J2405; J2704; J3010